=== PATIENT | female | born 1935 | race Caucasian/White ===

== ENCOUNTER 2019-10-11 11:12 | Inpatient (IN) | payer MEDICARE ==
[2019-10-11 12:01] LABS: Hematocrit 26.5 % (35-47); Hemoglobin 8.2 gm/dl (12.0-16.0); Mean Cell Volume 98.9 fl (78-100); Mean Corpuscular Hemoglobin 30.6 pg (26-32); Mean Corpuscular Hgb Concent. 30.9 g/dl (32-36); Mean Platelet Volume 9.4 fl (7.5-11.0); Platelet Count 348 K/mm3 (150-450); Red Blood Count 2.68 M/mm3 (4.1-5.4); Red Cell Distribution Width 21.9 % (11.5-14.0); White Blood Count 7.5 K/mm3 (4.0-10.5)
[2019-10-11 12:27] LABS: ANION GAP 13.4 MEQ/L (5-15); BLOOD UREA NITROGEN 40 mg/dL (7-17); CHLORIDE 96 mmol/L (98-107); Calcium 8.8 mg/dL (8.4-10.2); Carbon Dioxide 31 mmol/L (22-30); Creatinine 1 1.63 mg/dL (0.52-1.04); Glucose 111 mg/dL (74-106); NT PRO BNP > 35000 pg/mL (0-1800); SODIUM 137 mmol/L (137-145)
[2019-10-11] MEDS ORDERED: NovoLOG Insulin SQ PRN (12:30)
--- NOTE | 2019-10-11 12:56 | XRAY ---
Indication: "Fluid on lungs." Comparison: June 10, 2018. Portable chest demonstrates interval cardiac valve replacement surgery. Again cardiomegaly with new small bibasilar effusions/atelectasis favoring for cardiac decompensation. Bony thorax intact.
[2019-10-11] MEDS: ECOTRIN 81 MG PO SCH (13:06)
[2019-10-11] MEDS: Lasix 40 MG/4 ML IV SCH ×2 (13:06→21:09)
[2019-10-11] MEDS: ENOXAPARIN SODIUM SQ SCH (13:07)
[2019-10-11 13:36] LABS: ANISOCYTOSIS 2+; BAND 4 % (0.0-2.0); Eosinophil 1 % (0.00-3.0); Hypochromia 1+; Lymphocytes 8 % (24-44); Microcytosis 1+; Monocyte 8 % (0.0-12.0); Neutrophils 79 % (36.0-66.0); Total Cells Counted 100
[2019-10-11 13:37] LABS: Platelet Estimate NORMAL (NORMAL); Poikilocytosis 1+; Polychromasia RARE; Toxic Granulation 1+
[2019-10-11] MEDS: POTASSIUM CHLORIDE 20 mEq IN WATER 100ML 20 MEQ/100 ML BAG IV SCH ×2 (14:00→16:49)
[2019-10-11] MEDS: Sodium Chloride 0.9% 500 ML 500 ML IV SCH (14:00)
[2019-10-11] MEDS: Apresoline 25 MG TABLET PO SCH ×2 (14:06→21:09)
[2019-10-11] MEDS: FEOSOL 325 MG PO SCH ×2 (21:09→21:14)
[2019-10-11] MEDS: Klor Con 10 MEQ PO SCH ×2 (21:10→21:11)
[2019-10-11] MEDS: Lopressor 50 MG PO SCH (21:10)
[2019-10-11] MEDS ORDERED: TYLENOL 325 MG PO PRN (21:54)
[2019-10-12 05:15] LABS: ANION GAP 10.9 MEQ/L (5-15); Calcium 8.6 mg/dL (8.4-10.2); Creatinine 1 1.6 mg/dL (0.52-1.04); Potassium 3.2 mmol/L (3.5-5.1)
[2019-10-12] MEDS: Sodium Chloride 0.9% 500 ML 500 ML IV SCH ×2 (07:50→10:53)
--- NOTE | 2019-10-12 09:59 | PCM.NOTE ---
Date and Time: 10/12/19 0958 Subjective Assessment: patient notes improvement in her swelling, had good urine output overnight and yesterday. she is still short of breath with exertion and her abdomen feels swollen/fluid filled Objective Exam General Appearance: no apparent distress Neurologic Exam: alert, oriented x 3 Respiratory Exam: crackles/rales Cardiovascular Exam: regular rate/rhythm, normal heart sounds Gastrointestinal/Abdomen Exam: soft, No tenderness, No mass Extremity Exam: pedal edema, swelling (improving) OBJECTIVE DATA Vital Signs: Vital Signs - 24 hr Temp Pulse Resp BP Pulse Ox 10/12/19 08:00 98.5 F 94 H 16 147/77 94 L 10/12/19 04:00 97.3 F 64 20 125/59 95 10/11/19 23:53 98.7 F 58 L 19 122/66 94 L 10/11/19 19:29 98.8 F 74 18 117/53 93 L 10/11/19 16:13 97.9 F 65 20 118/59 98 10/11/19 12:15 97.6 F 70 16 123/61 95 10/11/19 12:04 97.6 F 70 16 123/61 95 10/11/19 12:00 97.6 F 70 16 123/61 95 Pain Assessment - Last Documented Pain Intensity 1 Pain Scale Used FLACC Intake and Output: Intake & Output 10/09/19 10/10/19 10/11/19 10/12/19 11:59 11:59 11:59 11:59 Intake Total 1549 Output Total 900 Balance 649 Weight 67.7 kg Lab Results: Accuchecks Date 10/12/19 Date 10/11/19 Date 10/11/19 Time 08:16 Time 21:30 Time 16:30 Accucheck Value: 119 Accucheck Value: 121 Accucheck Value: 110 Lab Results-Last 24 Hours 10/11/19 10/11/19 10/11/19 Range/Units 11:59 11:59 22:52 WBC 7.5 (4.0-10.5) K/mm3 RBC 2.68 L (4.1-5.4) M/mm3 Hgb 8.2 L (12.0-16.0) gm/dl Hct 26.5 L (35-47) % MCV 98.9 (78-100) fl MCH 30.6 (26-32) pg MCHC 30.9 L (32-36) g/dl RDW 21.9 H (11.5-14.0) % Plt Count 348 (150-450) K/mm3 MPV 9.4 (7.5-11.0) fl Segmented Neutrophils 79 H (36.0-66.0) % Band Neutrophils 4 H (0.0-2.0) % Lymphocytes (Manual) 8 L (24-44) % Monocytes (Manual) 8 (0.0-12.0) % Eosinophils (Manual) 1 (0.00-3.0) % Hypochromia 1+ Toxic Granulation 1+ Platelet Estimate NORMAL (NORMAL) RBC Morphology ABNORMAL Polychromasia RARE Poikilocytosis 1+ Anisocytosis 2+ Microcytosis 1+ Sodium 137 (137-145) mmol/L Potassium 3.0 L 3.2 L (3.5-5.1) mmol/L Chloride 96 L (98-107) mmol/L Carbon Dioxide 31 H (22-30) mmol/L Anion Gap 13.4 (5-15) MEQ/L BUN 40 H (7-17) mg/dL Creatinine 1.63 H (0.52-1.04) mg/dL Estimated GFR 31.9 ML/MIN Glucose 111 H (74-106) mg/dL Calcium 8.8 (8.4-10.2) mg/dL Magnesium 2.0 (1.6-2.3) mg/dL NT-Pro-B Natriuret Pep > 51414 H (0-1800) pg/mL 10/12/19 Range/Units 04:38 WBC (4.0-10.5) K/mm3 RBC (4.1-5.4) M/mm3 Hgb (12.0-16.0) gm/dl Hct (35-47) % MCV (78-100) fl MCH (26-32) pg MCHC (32-36) g/dl RDW (11.5-14.0) % Plt Count (150-450) K/mm3 MPV (7.5-11.0) fl Segmented Neutrophils (36.0-66.0) % Band Neutrophils (0.0-2.0) % Lymphocytes (Manual) (24-44) % Monocytes (Manual) (0.0-12.0) % Eosinophils (Manual) (0.00-3.0) % Hypochromia Toxic Granulation Platelet Estimate (NORMAL) RBC Morphology Polychromasia Poikilocytosis Anisocytosis Microcytosis Sodium 136 L (137-145) mmol/L Potassium 3.2 L (3.5-5.1) mmol/L Chloride 96 L (98-107) mmol/L Carbon Dioxide 33 H (22-30) mmol/L Anion Gap 10.9 (5-15) MEQ/L BUN 40 H (7-17) mg/dL Creatinine 1.60 H (0.52-1.04) mg/dL Estimated GFR 32.6 ML/MIN Glucose 100 (74-106) mg/dL Calcium 8.6 (8.4-10.2) mg/dL Magnesium (1.6-2.3) mg/dL NT-Pro-B Natriuret Pep (0-1800) pg/mL Radiology Exams: Radiology Procedures Category Date Time Status CHEST 1 VIEW (PORTABLE) Routine Exams 10/11/19 12:00 Completed Assessment/Plan (1) Acute exacerbation of CHF (congestive heart failure) Current Visit: No Status: Acute Assessment & Plan: diuresing well, continue IV lasix, will get echo Code(s): I50.9 - HEART FAILURE, UNSPECIFIED (2) Failure of outpatient treatment Current Visit: No Status: Acute Code(s): Z78.9 - OTHER SPECIFIED HEALTH STATUS (3) Hypokalemia Current Visit: Yes Status: Acute Code(s): E87.6 - HYPOKALEMIA
[2019-10-12] MEDS ORDERED: K-LYTE 25 MEQ PO ONE (10:00)
[2019-10-12] MEDS ORDERED: FLUZONE HIGH-DOSE 2019-20 SYR IM ONE (10:00)
[2019-10-12] MEDS ORDERED: MAGNESIUM AMINO ACID CHELATE PO SCH (10:00)
[2019-10-12] MEDS ORDERED: NON-FORMULARY ITEM (Doxazosin Mesylate [Doxazosin Mesylate] 1 MG) PO SCH (10:00)
[2019-10-12] MEDS: Lasix 40 MG/4 ML IV SCH ×2 (10:57→22:44)
[2019-10-12] MEDS: CARDURA 2 MG PO SCH (10:57)
[2019-10-12] MEDS: Klor Con 10 MEQ PO SCH ×3 (10:58→22:44)
[2019-10-12] MEDS: Apresoline 25 MG TABLET PO SCH ×3 (10:58→22:44)
[2019-10-12] MEDS: PLAVIX 75 MG Tablet PO SCH (10:58)
[2019-10-12] MEDS: MAG-OX 400 PO SCH (10:58)
[2019-10-12] MEDS: ECOTRIN 81 MG PO SCH (10:59)
[2019-10-12] MEDS: Lopressor 50 MG PO SCH ×2 (11:00→22:44)
[2019-10-12] MEDS: FEOSOL 325 MG PO SCH ×3 (11:00→22:47)
[2019-10-12] MEDS: ENOXAPARIN SODIUM SQ SCH (11:01)
[2019-10-12] MEDS ORDERED: Sodium Chloride 0.9% 10 ML FLUSH Syringe IV PRN (17:00)
[2019-10-12] MEDS: Sodium Chloride 0.9% 10 ML FLUSH Syringe IV SCH (22:45)
[2019-10-13 04:22] LABS: Hematocrit 26.5 % (35-47); Hemoglobin 8.3 gm/dl (12.0-16.0); Mean Cell Volume 99.3 fl (78-100); Mean Corpuscular Hemoglobin 31.1 pg (26-32); Mean Corpuscular Hgb Concent. 31.3 g/dl (32-36); Platelet Count 346 K/mm3 (150-450); Red Blood Count 2.67 M/mm3 (4.1-5.4); Red Cell Distribution Width 21.6 % (11.5-14.0); White Blood Count 7.8 K/mm3 (4.0-10.5)
[2019-10-13 04:37] LABS: ANION GAP 12.9 MEQ/L (5-15); Calcium 8.6 mg/dL (8.4-10.2); Creatinine 1 1.52 mg/dL (0.52-1.04); Potassium 3.8 mmol/L (3.5-5.1)
[2019-10-13 05:16] LABS: ANISOCYTOSIS RARE; BAND 1 % (0.0-2.0); Eosinophil 1 % (0.00-3.0); Lymphocytes 15 % (24-44); Monocyte 14 % (0.0-12.0); Neutrophils 69 % (36.0-66.0); Platelet Estimate NORMAL (NORMAL); Poikilocytosis 1+; Total Cells Counted 100; Toxic Granulation RARE
[2019-10-13] MEDS: Sodium Chloride 0.9% 10 ML FLUSH Syringe IV SCH (06:20)
[2019-10-13 07:42] VITALS: BP 150/70; PULSE 73; O2SAT 93
[2019-10-13] MEDS: MAG-OX 400 PO SCH (08:36)
[2019-10-13] MEDS: CARDURA 2 MG PO SCH (08:36)
[2019-10-13] MEDS: ECOTRIN 81 MG PO SCH (08:36)
[2019-10-13] MEDS: Apresoline 25 MG TABLET PO SCH (08:36)
[2019-10-13] MEDS: PLAVIX 75 MG Tablet PO SCH (08:37)
[2019-10-13] MEDS: FEOSOL 325 MG PO SCH (08:37)
[2019-10-13] MEDS: ENOXAPARIN SODIUM SQ SCH (08:37)
[2019-10-13] MEDS: Lasix 40 MG/4 ML IV SCH (08:37)
[2019-10-13] MEDS: Klor Con 10 MEQ PO SCH (08:37)
[2019-10-13] MEDS: Lopressor 50 MG PO SCH (08:41)
--- NOTE | 2019-10-13 09:06 | PCM.DS ---
Discharge Summary Date of Admission: 10/11/19 11:32 Admitting Physician: ALYSSA BARGER Primary Care Provider: ALYSSA BARGER Allergies Allergies No Known Drug Allergies Allergy (Verified 10/08/19 14:18) Hospital Summary - Hospital Course Hospital Course: patient was admitted with acute exacerbation of chf, found to have markedly elevated bnp with pulmonary edema and lower extremity swelling. improved with diuresis and is feeling much better now. - Vitals & Intake/Output Vital Signs: Vital Signs Temperature 97.7 F 10/13/19 07:41 Pulse Rate 73 10/13/19 07:41 Respiratory Rate 18 10/13/19 07:41 Blood Pressure 150/70 10/13/19 07:41 O2 Sat by Pulse Oximetry 93 L 10/13/19 07:41 Intake & Output: Intake & Output 10/10/19 10/11/19 10/12/19 10/13/19 11:59 11:59 11:59 11:59 Intake Total 1789 880 Output Total 900 700 Balance 889 180 Weight 67.7 kg 68 kg - Lab Result Diagrams: 10/13/19 04:28 10/13/19 04:28 Lab Results-Last 24 Hrs: Accuchecks Date 10/13/19 Date 10/12/19 Date 10/12/19 Time 07:44 Time 16:53 Time 12:32 Accucheck Value: 122 Accucheck Value: 126 Accucheck Value: 175 Accucheck Value: 179 Lab Results-Last 24 Hours 10/13/19 10/13/19 10/13/19 Range/Units 04:28 04:28 04:28 WBC 7.8 (4.0-10.5) K/mm3 RBC 2.67 L (4.1-5.4) M/mm3 Hgb 8.3 L (12.0-16.0) gm/dl Hct 26.5 L (35-47) % MCV 99.3 (78-100) fl MCH 31.1 (26-32) pg MCHC 31.3 L (32-36) g/dl RDW 21.6 H (11.5-14.0) % Plt Count 346 (150-450) K/mm3 MPV 9.0 (7.5-11.0) fl Segmented Neutrophils 69 H (36.0-66.0) % Band Neutrophils 1 (0.0-2.0) % Lymphocytes (Manual) 15 L (24-44) % Monocytes (Manual) 14 H (0.0-12.0) % Eosinophils (Manual) 1 (0.00-3.0) % Toxic Granulation RARE Platelet Estimate NORMAL (NORMAL) RBC Morphology ABNORMAL Poikilocytosis 1+ Anisocytosis RARE Sodium 137 (137-145) mmol/L Potassium 3.8 (3.5-5.1) mmol/L Chloride 95 L (98-107) mmol/L Carbon Dioxide 33 H (22-30) mmol/L Anion Gap 12.9 (5-15) MEQ/L BUN 38 H (7-17) mg/dL Creatinine 1.52 H (0.52-1.04) mg/dL Estimated GFR 34.6 ML/MIN Glucose 122 H (74-106) mg/dL Calcium 8.6 (8.4-10.2) mg/dL NT-Pro-B Natriuret Pep 36368 H (0-1800) pg/mL Micro Results-Entire Visit: Accuchecks Date 10/13/19 Date 10/12/19 Date 10/12/19 Time 07:44 Time 16:53 Time 12:32 Accucheck Value: 122 Accucheck Value: 126 Accucheck Value: 175 Accucheck Value: 179 - Radiology Exams Ordered Rad Exams-Entire Visit: Radiology Procedures Category Date Time Status CHEST 1 VIEW (PORTABLE) Routine Exams 10/11/19 12:00 Completed ECHO W/2D AND DOPPLER [US] Routine Exams 10/12/19 12:46 Taken - Procedures and Test Procedures and Tests throughout Hospitalization: Therapy Orders & Screens 10/11/19 13:04 PT Eval & Treat ( Order) ROUTINE Reason for Eval:: wound care to Right lazo Diagnosis: Acute Exacerbation of Systolic CHF, Failure outpatient Treatment Discharge Exam General Appearance: no apparent distress, alert Respiratory Exam: normal breath sounds Cardiovascular Exam: regular rate/rhythm, normal heart sounds Gastrointestinal/Abdomen Exam: soft, No tenderness, No mass Extremity Exam: normal inspection, normal range of motion Skin Exam: normal color, warm, dry Final Diagnosis/Problem List - Final Discharge Diagnosis/Problem (1) Acute exacerbation of CHF (congestive heart failure) Current Visit: No Status: Acute Code(s): I50.9 - HEART FAILURE, UNSPECIFIED (2) Failure of outpatient treatment Current Visit: No Status: Acute Code(s): Z78.9 - OTHER SPECIFIED HEALTH STATUS (3) Hypokalemia Current Visit: Yes Status: Acute Code(s): E87.6 - HYPOKALEMIA - Discharge Disposition: Home, Self-Care Condition: Stable Prescriptions: Continue Aspirin EC 81 mg [Ecotrin 81 mg] 81 mg PO DAILY Metoprolol Tartrate 50 mg [Lopressor 50 MG] 50 mg PO BID Potassium Chloride [Klor-Con] 20 meq PO TID Clopidogrel Bisulfate 75 mg [PLAVIX 75 MG Tablet] 75 mg PO DAILY Magnesium Amino Acid Chelate [Magnesium] 400 mg PO DAILY Sitagliptin Phosphate [Januvia] 100 mg PO DAILY Hydralazine HCl 50 mg PO TID Doxazosin Mesylate 1 mg PO DAILY Furosemide 40 mg [Lasix 40 MG] 40 mg PO BID metOLazone [Metolazone] 2.5 mg PO WEEKLY Instructions: Heart Failure, Adult (DC) Follow up with: ALYSSA BARGER MD [Primary Care Provider] - 1 Week J LUIS BOWMAN MD [CONSULTING PHYSICIAN] - 1 Week (please schedule for new consult in [place] office for chf/cad and fax copy of labs and echo)
--- NOTE | 2019-10-14 15:00 | ECHO ---
DATE OF PROCEDURE: 10/12/2019 CLINICAL INFORMATION: Congestive heart failure. The M-mode 2D, and Doppler echocardiogram including color flow Doppler shows the left ventricle is normal in size at 4.5 cm. There is no thrombus present. The septal wall thickness is normal at 0.8 cm. The left ventricular posterior wall thickness is normal at 0.9 cm. There is a moderate decrease in left ventricular systolic function with an ejection fraction calculated at 37%. The right ventricle is dilated. The left atrium is mildly dilated at 4.2 cm. The interatrial septum is intact. The right atrium is dilated. The aortic valve opens well and is trileaflet. There is no aortic regurgitation present. There is mitral valve calcification associated with mild to moderate mitral regurgitation. There is mild to moderate tricuspid regurgitation. There is mild pulmonic regurgitation. The aortic root is normal at 3.4 cm. There is no pericardial effusion present. IMPRESSION: 1) MODERATE DECREASE IN LEFT VENTRICULAR SYSTOLIC FUNCTION. 2) MILD LEFT ATRIAL DILATATION. 3) MILD TO MODERATE MITRAL REGURGITATION. 4) MILD TO MODERATE TRICUSPID REGURGITATION. 5) MILD PULMONIC REGURGITATION.
== END 2019-10-13 10:10 | disposition home health service (06) | DRG 293 ==
LOC: OBSVTOIN 11:32 → MED SURG 11:32
PROVIDERS: ADMIT Family Medicine; ATTEND Family Medicine
DX: I11.0 Hypertensive heart disease with heart failure (principal); I50.9 Heart failure, unspecified; E87.6 Hypokalemia; E11.9 Type 2 diabetes mellitus without complications; I25.10 Atherosclerotic heart disease of native coronary artery without angina pectoris; Z79.01 Long term (current) use of anticoagulants; Z79.899 Other long term (current) drug therapy
CPT/HCPCS: 36415; 71045; 80048; 82962; 83735; 83880; 84132; 85025; 90662; 93005; 93306; J1650; J1940; J3480; A9270-GY

== ENCOUNTER 2020-02-09 14:46 | Observation (INO) | payer MEDICARE ==
--- NOTE | 2020-02-09 15:28 | ERPHSYRPT ---
- History of Present Illness Time Seen by Provider: 02/09/20 15:16 Source: patient Exam Limitations: other (Pt refuses rectal exam) Patient Subjective Stated Complaint: Pt states "I had some diarrhea and dark blood in the stool this morning since 6 am." Triage Nursing Assessment: Pt has had 2 diarrhea episodes, 1 this morning and one about an hour ago both with dark blood in it. PT alert and oriented X 3, skin pwd Pt ambulates with a cane due to wound on right foot. Physician History: 84 yo wf w rectal bleed x2 over last 9 hours. Pt is taking plavix. She denies h/ o past GI bleed and has never had a colonoscopy. Pt denies N/V but stools are loose. Abdominal pain/chest pain/dyspnea are all denied. Timing/Duration: other (9 hours) Modifying Factors: Improves With: nothing Associated Symptoms: No nausea, No vomiting, No abdominal pain, No shortness of breath, No heartburn, No diaphoresis, No cough, No chills, No chest pain, No fever, No headaches, No loss of appetite, No malaise, No rash, No syncope, No seizure, No weakness Allergies/Adverse Reactions: No Known Drug Allergies Allergy (Verified 10/08/19 14:18) Home Medications: Aspirin EC 81 mg [Ecotrin 81 mg] 81 mg PO DAILY 02/12/19 [History] Clopidogrel Bisulfate 75 mg [PLAVIX 75 MG Tablet] 75 mg PO DAILY 02/12/19 [History] Magnesium Amino Acid Chelate [Magnesium] 400 mg PO DAILY 02/12/19 [History] Metoprolol Tartrate 50 mg [Lopressor 50 MG] 50 mg PO BID 02/12/19 [History ] Potassium Chloride [Klor-Con] 20 meq PO TID 02/12/19 [History] Sitagliptin Phosphate [Januvia] 100 mg PO DAILY 02/12/19 [History] Doxazosin Mesylate 1 mg PO DAILY 10/08/19 [History] Furosemide 40 mg [Lasix 40 MG] 40 mg PO BID 10/08/19 [History] Hydralazine HCl 50 mg PO TID 10/08/19 [History] metOLazone [Metolazone] 2.5 mg PO WEEKLY 10/11/19 [History] Hx Tetanus, Diphtheria Vaccination/Date Given: Yes Hx Influenza Vaccination/Date Given: Yes Hx Pneumococcal Vaccination/Date Given: No Immunizations Up to Date: Yes Travel Risk - International Travel Have you traveled outside of the country in past 3 weeks: No Have you or anyone close to you been diagnosed with or: No Do your reside in a community with a known COVID-19 case?: Yes If Yes where:: [place] - Coronavirus Screening Has patient experienced Coronavirus symptoms: No - Review of Systems Constitutional: No Fever, No Chills Eyes: No Symptoms Ears, Nose, & Throat: No Symptoms Respiratory: No Cough, No Dyspnea Cardiac: No Chest Pain, No Edema, No Syncope Abdominal/Gastrointestinal: Diarrhea, Hematochezia, No Abdominal Pain, No Nausea , No Vomiting, No Constipation, No Hematemesis, No Melena, No Dysphagia, No Appetite Changes Genitourinary Symptoms: No Dysuria Musculoskeletal: Other (Chronic RLE wound which she is seeing wound care for) Skin: No Symptoms Neurological: No Symptoms Endocrine: No Symptoms Hematologic/Lymphatic: No Symptoms Immunological/Allergic: No Symptoms - Past Medical History Pertinent Past Medical History: Yes Neurological History: No Pertinent History ENT History: No Pertinent History Cardiac History: Coronary Artery Disease, Hypertension Respiratory History: CHF Endocrine Medical History: Diabetes Type II Musculoskeletal History: Osteoarthritis, Other GI Medical History: Other History: No Pertinent History Psycho-Social History: No Pertinent History Female Reproductive Disorders: Abnormal Uterine Bleeding Other Medical History: CARDIAC STENT 01/02; Enlarged liver, open heart surgery - Past Surgical History Past Surgical History: Yes Neuro Surgical History: No Pertinent History Cardiac: Angioplasty, CABG, Cardiac Catheterization, Cardiac Stent Respiratory: No Pertinent History Gastrointestinal: No Pertinent History Genitourinary: No Pertinent History Musculoskeletal: Other Female Surgical History: Hysterectomy Other Surgical History: cardiac stent x three December. CABG x 4 vessels in -2018, wound care for bilateral legs within the last year - Social History Smoking Status: Never smoker Exposure to second hand smoke: No Drug Use: none Patient Lives Alone: Yes - Female History Hx Now: No - Nursing Vital Signs Nursing Vital Signs: Initial Vital Signs Temperature 97.8 F 02/09/20 14:53 Pulse Rate 72 02/09/20 14:53 Respiratory Rate 18 05/20/20 14:53 Blood Pressure 142/62 05/20/20 14:53 O2 Sat by Pulse Oximetry 92 L 02/09/20 14:53 Pain Scale Pain Intensity 0 - Physical Exam General Appearance: no apparent distress Eye Exam: PERRL/EOMI, eyes nml inspection Ears, Nose, Throat Exam: normal ENT inspection, TMs normal, pharynx normal, moist mucous membranes Neck Exam: normal inspection, non-tender, supple, full range of motion Respiratory Exam: crackles/rales (Rales B bases), No respiratory distress Cardiovascular Exam: regular rate/rhythm Gastrointestinal/Abdomen Exam: soft, normal bowel sounds, No tenderness, No distention, No mass, No guarding, No ecchymosis Rectal Exam: other (Pt refused rectal exam per physician/Nurse performed and bloody) Back Exam: normal inspection Extremity Exam: other (RLE wound not examined due to wound care center bandaging today) Neurologic Exam: alert, oriented x 3, cooperative, normal mood/affect, nml cerebellar function, nml station & gait, sensation nml, No motor deficits Skin Exam: normal color, warm, dry, No rash Lymphatic Exam: No adenopathy SpO2 Interpretation: borderline oxygenation SpO2: 92 O2 Delivery: Room Air - Radiology Exams Chest X-ray Interpretation: Reviewed by me - CT Exams Abdomen/Pelvis CT Interpretation: Tele-radiologist Report, Other (Cardiomegaly/ascites/ diverticulosis wo diverticulitis/gallstones wo cholecystitis/hepatomegaly/ splenomegaly/R pleural effusion/minimal ascites) Ordered Tests: Active Orders 24 hr Category Date Time Status Code Status Order ROUTINE Care 02/09/20 17:05 Active IV Care Q6H Care 02/09/20 17:[address] in Observation ROUTINE Care 02/09/20 17:05 Active ABDOMEN AND PELVIS W/0 CONTRAS [CT] Stat Exams 02/09/20 16:29 Completed CHEST 1 VIEW (PORTABLE) Stat Exams 02/09/20 15:43 Completed CBC W DIFF Stat Lab 02/09/20 15:47 Completed CMP Stat Lab 02/09/20 15:47 Completed Manual Differential NC Stat Lab 02/09/20 15:47 Completed Occult Blood-Screening (Stool) [Occult Blood - Cancer Lab 02/09/20 15:55 Completed Screen] Stat PROTIME WITH INR Stat Lab 02/09/20 15:47 Completed PTT Stat Lab 02/09/20 15:47 Completed TROPONIN Q3H Lab 02/09/20 15:55 Completed Transfer Order Routine Transfer 02/09/20 Ordered Lab/Rad Data: Laboratory Result Diagrams 02/09/20 15:47 02/09/20 15:47 Laboratory Results 02/09/20 02/09/20 02/09/20 Range/Units 15:55 15:55 15:47 WBC (4.0-10.5) K/mm3 RBC (4.1-5.4) M/mm3 Hgb (12.0-16.0) gm/dl Hct (35-47) % MCV (78-100) fl MCH (26-32) pg MCHC (32-36) g/dl RDW (11.5-14.0) % Plt Count (150-450) K/mm3 MPV (7.5-11.0) fl PT 17.4 H (9.95-12.35) SECONDS INR 1.53 (0.8-3.0) APTT 35.4 (25.3-37.0) SECONDS Sodium (137-145) mmol/L Potassium (3.5-5.1) mmol/L Chloride (98-107) mmol/L Carbon Dioxide (22-30) mmol/L Anion Gap (5-15) MEQ/L BUN (7-17) mg/dL Creatinine (0.52-1.04) mg/dL Estimated GFR ML/MIN Glucose (74-106) mg/dL Calcium (8.4-10.2) mg/dL Total Bilirubin (0.2-1.3) mg/dL AST (14-36) U/L ALT (0-35) U/L Alkaline Phosphatase (38-126) U/L Troponin I < 0.012 (0.000-0.034) ng/mL Serum Total Protein (6.3-8.2) g/dL Albumin (3.5-5.0) g/dL Stool Occult Bld Scrn POSITIVE A (NEGATIVE) 02/09/20 02/09/20 Range/Units 15:47 15:47 WBC 5.4 (4.0-10.5) K/mm3 RBC 2.26 L (4.1-5.4) M/mm3 Hgb 7.5 L (12.0-16.0) gm/dl Hct 23.5 L (35-47) % MCV 104.0 H (78-100) fl MCH 33.2 H (26-32) pg MCHC 31.9 L (32-36) g/dl RDW 18.9 H (11.5-14.0) % Plt Count 331 (150-450) K/mm3 MPV 9.4 (7.5-11.0) fl PT (9.95-12.35) SECONDS INR (0.8-3.0) APTT (25.3-37.0) SECONDS Sodium 139 (137-145) mmol/L Potassium 3.9 (3.5-5.1) mmol/L Chloride 96 L (98-107) mmol/L Carbon Dioxide 34 H (22-30) mmol/L Anion Gap 12.5 (5-15) MEQ/L BUN 40 H (7-17) mg/dL Creatinine 1.44 H (0.52-1.04) mg/dL Estimated GFR 36.9 ML/MIN Glucose 116 H (74-106) mg/dL Calcium 8.7 (8.4-10.2) mg/dL Total Bilirubin 0.40 (0.2-1.3) mg/dL AST 21 (14-36) U/L ALT 12 (0-35) U/L Alkaline Phosphatase 85 (38-126) U/L Troponin I (0.000-0.034) ng/mL Serum Total Protein 6.2 L (6.3-8.2) g/dL Albumin 3.6 (3.5-5.0) g/dL Stool Occult Bld Scrn (NEGATIVE) - Progress Progress: unchanged Progress Note: 02/09/20 16:[address] [place] for leydi Cummins to admit but wants CT ab-pelvis first. Wants to transfues 2 units PRBC's 02/09/20 17:12 02/09/20 17:50 CT of ab-pelvis wo acute pathology Discussed with : Jose - Departure Departure Disposition: Observation Clinical Impression: GI bleed Condition: Stable Critical Care Time: No Referrals: ALYSSA BARGER MD [Primary Care Provider] -
[2020-02-09 16:05] LABS: Hematocrit 23.5 % (35-47); Hemoglobin 7.5 gm/dl (12.0-16.0); Mean Corpuscular Hemoglobin 33.2 pg (26-32); Mean Corpuscular Hgb Concent. 31.9 g/dl (32-36); Mean Platelet Volume 9.4 fl (7.5-11.0); Platelet Count 331 K/mm3 (150-450); Red Blood Count 2.26 M/mm3 (4.1-5.4); Red Cell Distribution Width 18.9 % (11.5-14.0); White Blood Count 5.4 K/mm3 (4.0-10.5)
[2020-02-09 16:07] LABS: INR 1.53 (0.8-3.0); PROTIME 17.4 SECONDS (9.95-12.35)
[2020-02-09 16:10] LABS: PTT 35.4 SECONDS (25.3-37.0)
[2020-02-09 16:15] LABS: ALBUMIN 3.6 g/dL (3.5-5.0); ANION GAP 12.5 MEQ/L (5-15); BILIRUBIN,TOTAL 0.4 mg/dL (0.2-1.3); Calcium 8.7 mg/dL (8.4-10.2); Creatinine 1 1.44 mg/dL (0.52-1.04); Potassium 3.9 mmol/L (3.5-5.1); Total Protein 6.2 g/dL (6.3-8.2)
--- NOTE | 2020-02-09 16:22 | XRAY ---
Exam: AP upright portable chest film from 02/09/2020. Comparison: AP portable chest film from 10/11/2019 and 2 view chest film series from 06/10/2018. Indication: 84-year-old female with low oxygen saturation, rectal bleeding, prior CABG surgery last year. Findings: Lung volumes are mildly decreased. The patient is mildly rotated toward the right. There is mild elevation of the left hemidiaphragm which I believe is unchanged. The heart size is at least mildly enlarged. There is again evidence of prior sternotomy and cardiac valve replacement. There appears to be a left atrial appendage clip projected over the mediastinum as well. Moderate tortuosity of the descending thoracic aorta is seen. There appears to be a small amount of right basilar pleural fluid or pleural scarring which is perhaps slightly improved compared to 10/11/2019. In addition, subtle increased markings are seen at the left lung base adjacent to the left hemidiaphragm surface cyst in width minimal scarring/atelectasis. I don't believe this represents a significant interval change. The remainder of the lung aquino appears grossly clear. There is superior elevation of the right humeral head with respect to the glenoid of the right scapula suggesting chronic rotator cuff disease. No acute osseous process is seen. Impression: 1. There is at least mild cardiomegaly. The possibility of a pericardial effusion cannot be excluded or confirmed based on this portable chest radiograph. I see no findings of overt heart failure or pulmonary edema. 2. Status post sternotomy with cardiac valve replacement and left atrial appendage clipping, no change. 3. Mild elevation of the left hemidiaphragm with minimal increased markings near the left hemidiaphragm surface, likely due to subsegmental atelectasis or minimal scarring. I don't believe this represents a significant change. 4. Small amount of right basilar pleural effusion or pleural thickening appears slightly improved as compared to 10/11/2019. 5. The lungs are mildly hypoinflated. Otherwise, the remainder of the lungs appears clear.
--- NOTE | 2020-02-09 17:45 | XRAY ---
Exam: CT of the abdomen and pelvis without IV contrast from 02/09/2020. CTDI: 7.72 mGy Comparison: CT of the abdomen and pelvis without and with IV contrast from 09/20/2013. Indication: GI bleed. History of dark red blood per rectum, prior surgical history of hysterectomy and open heart surgery. Technique: Non-IV contrast axial images were obtained through the abdomen and pelvis. Reconstructed coronal and sagittal images were created and reviewed. Findings: The heart size appears mildly enlarged. There is a probable mitral valve replacement and midline sternotomy. Some coronary artery vascular calcification is seen on the right. There is at least mild elevation of the left hemidiaphragm. There is a mild to moderate posterior right basilar pleural effusion which is new from 09/20/2013. There are findings suggestive of a minimal retrocardiac hiatal hernia. Some compression atelectatic changes are seen posteriorly at both lung bases. The liver again appears to be enlarged extending into the upper right hemipelvis. On the coronal images, the right lobe of the liver measures about 24 cm in craniocaudal dimension on image #61. There are multiple hepatic cysts, the largest measuring 3.5 cm in diameter within the anterior aspect of the medial segment of the left lobe of the liver. These hepatic cysts appear similar to 09/03/2030. No intrahepatic biliary duct distention is seen. Numerous calcium rimmed gallstones are seen within the gallbladder lumen. Incidentally, there appears to be a minimal amount of perihepatic ascites within the anterior aspect of the right upper quadrant on axial image #18. A small amount of free intraperitoneal fluid is also seen within the right paracolic gutter on axial image #35. No significant free fluid is seen within the pelvis. The spleen again appears to be markedly enlarged and is remarkable for some scattered calcified granulomas. The dome of the spleen has been barely cut off from this exam, but I would estimate the greatest craniocaudal dimension of the spleen to measure about 19 cm. This appears similar to the prior study as well. Fairly extensive vascular calcification is seen within a mildly prominent splenic artery. The pancreas appears grossly unremarkable. Some prominent curvilinear vascular calcification is seen within the deep mesenteric arteries to the right of midline. The right adrenal gland appears unremarkable. There is mild asymmetric soft tissue prominence of the left adrenal gland which is unchanged and could be due to a superimposed adenoma or hyperplasia. Again, this is unchanged. The right kidney measures about 10.7 cm in length on sagittal image #81, and the left kidney measures about 10.4 cm in length on sagittal image #136. Small bilateral renal cortical cysts are seen, the largest measuring about 1.9 cm in diameter at the lateral margin of the lower pole of the left kidney. This represents no significant change. No renal calculi or definite solid renal mass is seen. No hydronephrosis is evident. Moderate vascular calcification and tortuosity of the abdominal aorta and iliac arteries are seen. No abdominal aortic aneurysm is seen. No abnormal retroperitoneal lymphadenopathy is seen. There is no free intraperitoneal air. Anterior abdominal wall appears intact. No significant bowel distention is seen to suggest bowel obstruction. Scattered diverticula are seen within the distal descending colon and sigmoid colon consistent with diverticulosis. No evidence of acute diverticulitis is seen. The appendix is not well seen, but no secondary findings of acute appendicitis are noted. The urinary bladder is mildly distended. A tiny bubble of air density seen within the anterior aspect of the urinary bladder, perhaps due to recent catheterization. The uterus is surgically absent. A few calcified phleboliths are seen within lower pelvis. No enlarged pelvic lymph nodes are seen. Moderate vascular calcification is seen within the iliac arteries and common femoral arteries. No acute fracture or aggressive bone lesion is seen. There appears to be a bone island within the right ischium on axial image #61 representing no change. Diffuse patchy bone demineralization is evident. There is moderate degenerative disc disease at L1-L2, L2-L3, and L5-S1. The degenerative disc disease at L1-L2 and L2-L3 has progressed as compared to 09/20/2013. Lower lumbar facet joint arthropathy is seen. Impression: 1. Mild cardiomegaly and mild to moderate posterior layering right pleural effusion. I also note minimal ascites seen anterior to the liver in the right upper quadrant and within the right paracolic gutter. Consider CHF. 2. Status post mitral valve replacement with sternotomy. Right coronary artery vascular calcification is also seen. 3. Chronic mild elevation left hemidiaphragm with minimal bibasilar atelectatic changes. 4. There is at least moderate hepatomegaly and marked splenomegaly representing no significant interval change from 2013. I again note some scattered hepatic cysts. 5. Chronic mild soft tissue fullness of the left adrenal gland, extensive atherosclerotic vascular calcification, minimal hiatal hernia, small bilateral renal cortical cysts, and cholelithiasis without evidence of biliary duct distention are seen. The findings appear stable. 6. Status post hysterectomy, no change. 7. Patchy bone demineralization and degenerative changes within the lumbar spine, as discussed above.
[2020-02-09 17:50] LABS: BAND 6 % (0.0-2.0); Basophil 2 % (0.0-1.0); Lymphocytes 4 % (24-44); Metamyelocyte 3 %; Monocyte 6 % (0.0-12.0); Neutrophils 79 % (36.0-66.0); Platelet Estimate NORMAL (NORMAL); Total Cells Counted 100
[2020-02-09 17:51] LABS: Basophilic Stippling 1+; Polychromasia 1+
[2020-02-09 18:47] LABS: Hematocrit 23.9 % (35-47); Hemoglobin 7.7 gm/dl (12.0-16.0); Mean Cell Volume 103.5 fl (78-100); Mean Corpuscular Hemoglobin 33.3 pg (26-32); Mean Corpuscular Hgb Concent. 32.2 g/dl (32-36); Mean Platelet Volume 9.6 fl (7.5-11.0); Platelet Count 345 K/mm3 (150-450); Red Blood Count 2.31 M/mm3 (4.1-5.4); Red Cell Distribution Width 18.9 % (11.5-14.0)
[2020-02-09] MEDS ORDERED: CITROMA 296 ML PO ONE (19:00)
[2020-02-09] MEDS ORDERED: Zofran 4 MG/2 ML VIAL IV PRN (19:02)
[2020-02-09 19:20] LABS: ABO TYPING O; Antibody Screen NEGATIVE (NEGATIVE); RH TYPING NEGATIVE
[2020-02-09 19:22] LABS: CROSS MATCH (PRBC) COMPATIBLE (COMPATIBLE)
[2020-02-09] MEDS ORDERED: Sodium Chloride 0.9% 1000 ML 1,000 ML ONE (20:13)
[2020-02-09] MEDS: Sodium Chloride 0.9% 1000 ML 1,000 ML IV SCH (20:25)
[2020-02-09] MEDS ORDERED: Sodium Chloride 0.9% 1000 ML 1,000 ML IV SCH (20:30)
[2020-02-09] MEDS: PROTONIX 40 MG IV IV SCH (20:30)
[2020-02-09] MEDS: Apresoline 25 MG TABLET PO SCH (21:34)
[2020-02-09] MEDS: Neurontin 100 MG PO SCH (21:34)
[2020-02-09] MEDS ORDERED: Lasix 40 MG PO SCH (22:00)
[2020-02-09] MEDS ORDERED: TYLENOL 325 MG PO PRN (23:04)
[2020-02-09] MEDS: NORCO 5/325 MG PO PRN (23:14)
[2020-02-10] MEDS ORDERED: CITROMA 296 ML PO ONE
[2020-02-10] MEDS ORDERED: Golytely Solution 4000 ML PO ONE
[2020-02-10] MEDS ORDERED: Lasix 20 MG/2 ML IV PRN (00:54)
[2020-02-10 05:17] LABS: Hematocrit 30.3 % (35-47); Mean Cell Volume 98.1 fl (78-100); Mean Corpuscular Hgb Concent. 32.7 g/dl (32-36); Mean Platelet Volume 9.5 fl (7.5-11.0); Platelet Count 319 K/mm3 (150-450); Red Blood Count 3.09 M/mm3 (4.1-5.4); Red Cell Distribution Width 19.3 % (11.5-14.0); White Blood Count 5.9 K/mm3 (4.0-10.5)
[2020-02-10 05:27] LABS: Hemoglobin 9.9 gm/dl (12.0-16.0)
[2020-02-10] MEDS ORDERED: Golytely Solution 4000 ML PO SCH (06:00)
[2020-02-10] MEDS ORDERED: POTASSIUM CHLORIDE 20 mEq IN WATER 100ML 200 ML IV ONE (06:14)
[2020-02-10] MEDS ORDERED: Levofloxacin 500MG/100ML D5W 500 MG/100 ML BAG IV ONE (06:15)
[2020-02-10] MEDS: Lactated Ringers 1,000 ML IV SCH ×2 (07:51→17:39)
[2020-02-10] MEDS: NORCO 5/325 MG PO PRN (08:23)
[2020-02-10] MEDS: Januvia 50 MG PO SCH (08:56)
[2020-02-10] MEDS: Apresoline 25 MG TABLET PO SCH ×3 (08:57→21:11)
[2020-02-10] MEDS: CARDURA 2 MG PO SCH (08:57)
[2020-02-10] MEDS: Lopressor 50 MG PO SCH (08:58)
[2020-02-10] MEDS: Lasix 40 MG PO SCH ×2 (08:59→17:32)
[2020-02-10] MEDS: MAG-OX 400 PO SCH (08:59)
[2020-02-10] MEDS: Neurontin 100 MG PO SCH ×2 (08:59→21:11)
[2020-02-10] MEDS ORDERED: MAGNESIUM AMINO ACID CHELATE PO SCH (10:00)
[2020-02-10] MEDS ORDERED: NON-FORMULARY ITEM (Doxazosin Mesylate [Doxazosin Mesylate] 1 MG) PO SCH (10:00)
[2020-02-10] MEDS ORDERED: NON-FORMULARY ITEM (Sitagliptin Phosphate [Januvia] 100 MG) PO SCH (10:00)
[2020-02-10 14:39] LABS: Hematocrit 36.9 % (35-47)
[2020-02-10 14:41] LABS: Hemoglobin 11.9 gm/dl (12.0-16.0)
--- NOTE | 2020-02-10 15:24 | PCM.CONS ---
History of Present Illness - Reason for Consult Chief Complaint: lower GI bleed Reason for Consult: gib Requesting Provider: RONALD BROWNLEE DO Consulting Provider: CHELSI MC MD History of Present Illness: is a 84 year old female. hx per chart review and d/w patient and RN. 6am 02/08 darkish red blood per rectum no clots. no n/v. no hematemesis. mild crampy abdominal pain. additional episode in afternoon so came to ED. HDS, low hgb got 3u blood hgb up 4 pts. got mag citrate yesterday, bowel prep today. overnight some blood in stool but no clots. clearing of bowels today with translucent yellow scant red tinge midday. 84 yo wf w rectal bleed x2 over last 9 hours. Pt is taking plavix, asa 81. She denies h/o past GI bleed and has never had a colonoscopy. Pt denies N/V but stools are loose. Abdominal pain/chest pain/dyspnea are all denied. Timing/Duration: other (9 hours) Modifying Factors: Improves With: nothing Associated Symptoms: No nausea, No vomiting, No abdominal pain, No shortness of breath, No heartburn, No diaphoresis, No cough, No chills, No chest pain, No fever, No headaches, No loss of appetite, No malaise, No rash, No syncope, No seizure, No weakness Allergies/Adverse Reactions: No Known Drug Allergies Allergy (Verified 10/08/19 14:18) Home Medications: Aspirin EC 81 mg [Ecotrin 81 mg] 81 mg PO DAILY 02/12/19 [History] Clopidogrel Bisulfate 75 mg [PLAVIX 75 MG Tablet] 75 mg PO DAILY 02/12/19 [History] Magnesium Amino Acid Chelate [Magnesium] 400 mg PO DAILY 02/12/19 [History] Metoprolol Tartrate 50 mg [Lopressor 50 MG] 50 mg PO BID 02/12/19 [History ] Potassium Chloride [Klor-Con] 20 meq PO TID 02/12/19 [History] Sitagliptin Phosphate [Januvia] 100 mg PO DAILY 02/12/19 [History] Doxazosin Mesylate 1 mg PO DAILY 10/08/19 [History] Furosemide 40 mg [Lasix 40 MG] 40 mg PO BID 10/08/19 [History] Hydralazine HCl 50 mg PO TID 10/08/19 [History] metOLazone [Metolazone] 2.5 mg PO WEEKLY 10/11/19 [History] Hx Tetanus, Diphtheria Vaccination/Date Given: Yes Hx Influenza Vaccination/Date Given: Yes Hx Pneumococcal Vaccination/Date Given: No Immunizations Up to Date: Yes Travel Risk - International Travel Have you traveled outside of the country in past 3 weeks: No Have you or anyone close to you been diagnosed with or: No Do your reside in a community with a known COVID-19 case?: Yes If Yes where:: [place] - Coronavirus Screening Has patient experienced Coronavirus symptoms: No - Review of Systems Constitutional: No Fever, No Chills Eyes: No Symptoms Ears, Nose, & Throat: No Symptoms Respiratory: No Cough, No Dyspnea Cardiac: No Chest Pain, No Edema, No Syncope Abdominal/Gastrointestinal: Diarrhea, Hematochezia, No Abdominal Pain, No Nausea , No Vomiting, No Constipation, No Hematemesis, No Melena, No Dysphagia, No Appetite Changes Genitourinary Symptoms: No Dysuria Musculoskeletal: Other (Chronic RLE wound which she is seeing wound care for) Skin: No Symptoms Neurological: No Symptoms Endocrine: No Symptoms Hematologic/Lymphatic: No Symptoms Immunological/Allergic: No Symptoms - Past Medical History Pertinent Past Medical History: Yes Neurological History: No Pertinent History ENT History: No Pertinent History Cardiac History: Coronary Artery Disease, Hypertension Respiratory History: CHF Endocrine Medical History: Diabetes Type II Musculoskeletal History: Osteoarthritis, Other GI Medical History: Other History: No Pertinent History Psycho-Social History: No Pertinent History Female Reproductive Disorders: Abnormal Uterine Bleeding Other Medical History: CARDIAC STENT 01/02; Enlarged liver, open heart surgery - Past Surgical History Past Surgical History: Yes Neuro Surgical History: No Pertinent History Cardiac: Angioplasty, CABG, Cardiac Catheterization, Cardiac Stent Respiratory: No Pertinent History Gastrointestinal: No Pertinent History Genitourinary: No Pertinent History Musculoskeletal: Other Female Surgical History: Hysterectomy Other Surgical History: cardiac stent x three December. CABG x 4 vessels in -2018, wound care for bilateral legs within the last year - Social History Smoking Status: Never smoker Exposure to second hand smoke: No Drug Use: none Patient Lives Alone: Yes Medications & Allergies Home Medications: Home Medication List Aspirin EC 81 mg [Ecotrin 81 mg] 81 mg PO DAILY 02/12/19 [History Confirmed 02/09/20] Clopidogrel Bisulfate 75 mg [PLAVIX 75 MG Tablet] 75 mg PO DAILY 02/12/19 [History Confirmed 02/09/20] Magnesium Amino Acid Chelate [Magnesium] 400 mg PO DAILY 02/12/19 [History Confirmed 02/09/20] Metoprolol Tartrate 50 mg [Lopressor 50 MG] 50 mg PO DAILY 02/12/19 [ History Confirmed 02/09/20] Sitagliptin Phosphate [Januvia] 100 mg PO DAILY 02/12/19 [History Confirmed ] Doxazosin Mesylate 1 mg PO DAILY 10/08/19 [History Confirmed 02/09/20] Furosemide 40 mg [Lasix 40 MG] 40 mg PO BID 10/08/19 [History Confirmed ] Hydralazine HCl 50 mg PO TID 10/08/19 [History Confirmed 02/09/20] Gabapentin [Neurontin] 100 mg PO BID 02/09/20 [History Confirmed 02/09/20] Allergies/Adverse Reactions: Allergies Allergy/AdvReac Type Severity Reaction Status Date / Time No Known Drug Allergies Allergy Verified 02/09/20 18:08 - Past Medical History Past Medical History: Yes Neurological History: No Pertinent History ENT History: No Pertinent History Cardiac History: Coronary Artery Disease, Hypertension, Myocardial Infarction ( [place]) Respiratory History: CHF Endocrine Medical History: Diabetes Type II Musculoskelatal History: Osteoarthritis GI Medical History: Other History: No Pertinent History Pyscho-Social History: No Pertinent History Reproductive Disorders: No Pertinent History Comment: CARDIAC STENT 01/02; Enlarged liver, open heart surgery 12/08/18 - Female History Are you now?: No - Past Surgical History Past Surgical History: Yes Neuro Surgical History: No Pertinent History Cardiac History: Angioplasty, CABG, Cardiac Catheterization, Cardiac Stent Respiratory Surgery: No Pertinent History GI Surgical History: No Pertinent History Genitourinary Surgical Hx: No Pertinent History Musculskeletal Surgical Hx: Other Female Surgical History: Hysterectomy Other Surgical History: cardiac stent x three December. CABG x 4 vessels in 3-2019, wound care for bilateral legs within the last year - Social History Smoking Status: Never smoker Exposure to second hand smoke: No Alcohol: None Drug Use: none - Physical Exam Vital Signs: Vital Signs - 24 hr Temp Pulse Resp BP Pulse Ox 02/10/20 12:00 96.3 F 58 L 16 126/72 94 L 02/10/20 10:04 96 H 141/87 02/10/20 08:00 96 H 02/10/20 06:36 98.0 F 80 17 141/87 97 02/10/20 04:01 97.6 F 82 20 126/74 95 02/10/20 03:57 82 02/10/20 03:56 97.6 F 82 20 126/74 95 02/10/20 00:01 98.8 F 80 17 127/67 98 02/09/20 19:49 98.9 F 82 13 150/75 98 02/09/20 18:13 98.9 F 82 13 150/75 98 02/09/20 17:51 92 L 02/09/20 17:22 76 16 132/66 97 02/09/20 16:06 97.6 F 58 L 18 126/66 98 General Appearance: no apparent distress, alert Neurologic Exam: alert, oriented x 3, normal mood/affect Eye Exam: eyes nml inspection, No scleral icterus Neck Exam: normal inspection Respiratory Exam: No respiratory distress Cardiovascular Exam: regular rate/rhythm Gastrointestinal/Abdomen Exam: soft, distention, No tenderness, No hepatomegaly , No splenomegaly Pelvic Exam: not done Rectal Exam: deferred (pt on bedside commode. not able to evaluate LE wound) Wound Assessment: Skin/Wound Assessment Wound/Incision Assessment Start: 02/09/20 20: 07 Text: Status: Active Freq: Q6H Protocol: Document 02/10/20 13:56 [facility] (Rec: 02/10/20 14:02 [facility] [id number]) Wound/Incision Assessment Right Lower Calf Wound Assessment Admission Wound Type Stasis Ulcer Wound Stage Non Pressure Wound Dressing Status Dry & Intact Drainage Amount None Drainage Odor None/Absent Comment Patient stated saw Dr Cheng yesterday for wound care, he dressed wound, states large wound to calf area and two smaller areas. does not want dressings removed Wound Photo Photo Taken No Comment: photo not taken. dressing CDI, Results - Labs Lab/Micro Results: Accuchecks Date 02/09/20 Date 02/10/20 Date 02/09/20 Time 11:30 Time 07:30 Time 22:00 Accucheck Value: 113 Accucheck Value: 127 Accucheck Value: 110 Lab Results-Last 24 Hours 02/09/20 02/09/20 02/09/20 Range/Units 15:47 15:47 15:47 WBC 5.4 (4.0-10.5) K/mm3 RBC 2.26 L (4.1-5.4) M/mm3 Hgb 7.5 L (12.0-16.0) gm/dl Hct 23.5 L (35-47) % MCV 104.0 H (78-100) fl MCH 33.2 H (26-32) pg MCHC 31.9 L (32-36) g/dl RDW 18.9 H (11.5-14.0) % Plt Count 331 (150-450) K/mm3 MPV 9.4 (7.5-11.0) fl Segmented Neutrophils 79 H (36.0-66.0) % Band Neutrophils 6 H (0.0-2.0) % Lymphocytes (Manual) 4 L (24-44) % Monocytes (Manual) 6 (0.0-12.0) % Basophils (Manual) 2 H (0.0-1.0) % Metamyelocytes 3 % Platelet Estimate NORMAL (NORMAL) RBC Morphology ABNORMAL Polychromasia 1+ Basophilic Stippling 1+ PT 17.4 H (9.95-12.35) SECONDS INR 1.53 (0.8-3.0) APTT 35.4 (25.3-37.0) SECONDS Sodium 139 (137-145) mmol/L Potassium 3.9 (3.5-5.1) mmol/L Chloride 96 L (98-107) mmol/L Carbon Dioxide 34 H (22-30) mmol/L Anion Gap 12.5 (5-15) MEQ/L BUN 40 H (7-17) mg/dL Creatinine 1.44 H (0.52-1.04) mg/dL Estimated GFR 36.9 ML/MIN Glucose 116 H (74-106) mg/dL Hemoglobin A1c (4.5-6.0) % Calcium 8.7 (8.4-10.2) mg/dL Total Bilirubin 0.40 (0.2-1.3) mg/dL AST 21 (14-36) U/L ALT 12 (0-35) U/L Alkaline Phosphatase 85 (38-126) U/L Troponin I (0.000-0.034) ng/mL Serum Total Protein 6.2 L (6.3-8.2) g/dL Albumin 3.6 (3.5-5.0) g/dL Prealbumin (17.6-36.0) mg/dL Stool Occult Bld Scrn (NEGATIVE) ABO Group Rh Factor Antibody Screen (NEGATIVE) Crossmatch (COMPATIBLE) 02/09/20 02/09/20 02/09/20 Range/Units 15:55 15:55 17:35 WBC (4.0-10.5) K/mm3 RBC (4.1-5.4) M/mm3 Hgb (12.0-16.0) gm/dl Hct (35-47) % MCV (78-100) fl MCH (26-32) pg MCHC (32-36) g/dl RDW (11.5-14.0) % Plt Count (150-450) K/mm3 MPV (7.5-11.0) fl Segmented Neutrophils (36.0-66.0) % Band Neutrophils (0.0-2.0) % Lymphocytes (Manual) (24-44) % Monocytes (Manual) (0.0-12.0) % Basophils (Manual) (0.0-1.0) % Metamyelocytes % Platelet Estimate (NORMAL) RBC Morphology Polychromasia Basophilic Stippling PT (9.95-12.35) SECONDS INR (0.8-3.0) APTT (25.3-37.0) SECONDS Sodium (137-145) mmol/L Potassium (3.5-5.1) mmol/L Chloride (98-107) mmol/L Carbon Dioxide (22-30) mmol/L Anion Gap (5-15) MEQ/L BUN (7-17) mg/dL Creatinine (0.52-1.04) mg/dL Estimated GFR ML/MIN Glucose (74-106) mg/dL Hemoglobin A1c (4.5-6.0) % Calcium (8.4-10.2) mg/dL Total Bilirubin (0.2-1.3) mg/dL AST (14-36) U/L ALT (0-35) U/L Alkaline Phosphatase (38-126) U/L Troponin I < 0.012 (0.000-0.034) ng/mL Serum Total Protein (6.3-8.2) g/dL Albumin (3.5-5.0) g/dL Prealbumin (17.6-36.0) mg/dL Stool Occult Bld Scrn POSITIVE A (NEGATIVE) ABO Group O Rh Factor NEGATIVE Antibody Screen NEGATIVE (NEGATIVE) Crossmatch COMPATIBLE (COMPATIBLE) 02/09/20 02/09/20 02/09/20 Range/Units 17:35 17:35 17:35 WBC (4.0-10.5) K/mm3 RBC (4.1-5.4) M/mm3 Hgb (12.0-16.0) gm/dl Hct (35-47) % MCV (78-100) fl MCH (26-32) pg MCHC (32-36) g/dl RDW (11.5-14.0) % Plt Count (150-450) K/mm3 MPV (7.5-11.0) fl Segmented Neutrophils (36.0-66.0) % Band Neutrophils (0.0-2.0) % Lymphocytes (Manual) (24-44) % Monocytes (Manual) (0.0-12.0) % Basophils (Manual) (0.0-1.0) % Metamyelocytes % Platelet Estimate (NORMAL) RBC Morphology Polychromasia Basophilic Stippling PT (9.95-12.35) SECONDS INR (0.8-3.0) APTT (25.3-37.0) SECONDS Sodium (137-145) mmol/L Potassium (3.5-5.1) mmol/L Chloride (98-107) mmol/L Carbon Dioxide (22-30) mmol/L Anion Gap (5-15) MEQ/L BUN (7-17) mg/dL Creatinine (0.52-1.04) mg/dL Estimated GFR ML/MIN Glucose (74-106) mg/dL Hemoglobin A1c (4.5-6.0) % Calcium (8.4-10.2) mg/dL Total Bilirubin (0.2-1.3) mg/dL AST (14-36) U/L ALT (0-35) U/L Alkaline Phosphatase (38-126) U/L Troponin I (0.000-0.034) ng/mL Serum Total Protein (6.3-8.2) g/dL Albumin (3.5-5.0) g/dL Prealbumin (17.6-36.0) mg/dL Stool Occult Bld Scrn (NEGATIVE) ABO Group Rh Factor Antibody Screen (NEGATIVE) Crossmatch COMPATIBLE COMPATIBLE COMPATIBLE (COMPATIBLE) 02/09/20 02/09/20 02/10/20 Range/Units 17:50 18:00 05:00 WBC 5.0 5.9 (4.0-10.5) K/mm3 RBC 2.31 L 3.09 L (4.1-5.4) M/mm3 Hgb 7.7 L 9.9 L D (12.0-16.0) gm/dl Hct 23.9 L 30.3 L (35-47) % MCV 103.5 H 98.1 (78-100) fl MCH 33.3 H 32.0 (26-32) pg MCHC 32.2 32.7 (32-36) g/dl RDW 18.9 H 19.3 H (11.5-14.0) % Plt Count 345 319 (150-450) K/mm3 MPV 9.6 9.5 (7.5-11.0) fl Segmented Neutrophils (36.0-66.0) % Band Neutrophils (0.0-2.0) % Lymphocytes (Manual) (24-44) % Monocytes (Manual) (0.0-12.0) % Basophils (Manual) (0.0-1.0) % Metamyelocytes % Platelet Estimate (NORMAL) RBC Morphology Polychromasia Basophilic Stippling PT (9.95-12.35) SECONDS INR (0.8-3.0) APTT (25.3-37.0) SECONDS Sodium (137-145) mmol/L Potassium (3.5-5.1) mmol/L Chloride (98-107) mmol/L Carbon Dioxide (22-30) mmol/L Anion Gap (5-15) MEQ/L BUN (7-17) mg/dL Creatinine (0.52-1.04) mg/dL Estimated GFR ML/MIN Glucose (74-106) mg/dL Hemoglobin A1c (4.5-6.0) % Calcium (8.4-10.2) mg/dL Total Bilirubin (0.2-1.3) mg/dL AST (14-36) U/L ALT (0-35) U/L Alkaline Phosphatase (38-126) U/L Troponin I (0.000-0.034) ng/mL Serum Total Protein (6.3-8.2) g/dL Albumin (3.5-5.0) g/dL Prealbumin 20.13 (17.6-36.0) mg/dL Stool Occult Bld Scrn (NEGATIVE) ABO Group Rh Factor Antibody Screen (NEGATIVE) Crossmatch (COMPATIBLE) 02/10/20 02/10/20 Range/Units 08:15 14:16 WBC (4.0-10.5) K/mm3 RBC (4.1-5.4) M/mm3 Hgb 11.9 L D (12.0-16.0) gm/dl Hct 36.9 (35-47) % MCV (78-100) fl MCH (26-32) pg MCHC (32-36) g/dl RDW (11.5-14.0) % Plt Count (150-450) K/mm3 MPV (7.5-11.0) fl Segmented Neutrophils (36.0-66.0) % Band Neutrophils (0.0-2.0) % Lymphocytes (Manual) (24-44) % Monocytes (Manual) (0.0-12.0) % Basophils (Manual) (0.0-1.0) % Metamyelocytes % Platelet Estimate (NORMAL) RBC Morphology Polychromasia Basophilic Stippling PT (9.95-12.35) SECONDS INR (0.8-3.0) APTT (25.3-37.0) SECONDS Sodium (137-145) mmol/L Potassium (3.5-5.1) mmol/L Chloride (98-107) mmol/L Carbon Dioxide (22-30) mmol/L Anion Gap (5-15) MEQ/L BUN (7-17) mg/dL Creatinine (0.52-1.04) mg/dL Estimated GFR ML/MIN Glucose (74-106) mg/dL Hemoglobin A1c 5.66 (4.5-6.0) % Calcium (8.4-10.2) mg/dL Total Bilirubin (0.2-1.3) mg/dL AST (14-36) U/L ALT (0-35) U/L Alkaline Phosphatase (38-126) U/L Troponin I (0.000-0.034) ng/mL Serum Total Protein (6.3-8.2) g/dL Albumin (3.5-5.0) g/dL Prealbumin (17.6-36.0) mg/dL Stool Occult Bld Scrn (NEGATIVE) ABO Group Rh Factor Antibody Screen (NEGATIVE) Crossmatch (COMPATIBLE) Accuchecks Date 02/09/20 Date 02/10/20 Date 02/09/20 Time 11:30 Time 07:30 Time 22:00 Accucheck Value: 113 Accucheck Value: 127 Accucheck Value: 110 - Radiology Impressions Radiology Exams & Impressions: Radiology Procedures Category Date Time Status ABDOMEN AND PELVIS W/0 CONTRAS [CT] Stat Exams 02/09/20 16:29 Completed CHEST 1 VIEW (PORTABLE) Stat Exams 02/09/20 15:43 Completed Assessment/Plan (1) GI bleed Current Visit: Yes Status: Acute Assessment & Plan: 84yo female on asa, plavix with marroon bloody stools, no prior c scope. hemodynamically stable appropriate response to blood transfusion, stools clearing with prep does not appear to be actively bleeding. -hold antiplatelet for right now -EGD/colonoscopy today. -ppi -supportive care. Code(s): K92.2 - GASTROINTESTINAL HEMORRHAGE, UNSPECIFIED
[2020-02-10] MEDS ORDERED: DIPRIVAN 200 MG/20 ML IV ONE (16:04)
--- NOTE | 2020-02-10 16:19 | PCM.HP ---
History of Present Illness - Chief Complaint Chief Complaint: lower GI bleed History of Present Illness: is a 84 year old female. Please see Short Stay Summary. Medications & Allergies Home Medications: Home Medication List Aspirin EC 81 mg [Ecotrin 81 mg] 81 mg PO DAILY 02/12/19 [History Confirmed 02/09/20] Magnesium Amino Acid Chelate [Magnesium] 400 mg PO DAILY 02/12/19 [History Confirmed 02/09/20] Metoprolol Tartrate 50 mg [Lopressor 50 MG] 50 mg PO DAILY 02/12/19 [History Confirmed 02/09/20] Sitagliptin Phosphate [Januvia] 100 mg PO DAILY 02/12/19 [History Confirmed 02/09/20] Doxazosin Mesylate 1 mg PO DAILY 10/08/19 [History Confirmed 02/09/20] Furosemide 40 mg [Lasix 40 MG] 40 mg PO BID 10/08/19 [History Confirmed 02/09/20] Hydralazine HCl 50 mg PO TID 10/08/19 [History Confirmed 02/09/20] Gabapentin [Neurontin] 100 mg PO BID 02/09/20 [History Confirmed 02/09/20] Aspirin EC 81 mg [Ecotrin 81 mg] 81 mg PO DAILY #60 tablet.ec 02/11/20 [Rx] Allergies/Adverse Reactions: Allergies Allergy/AdvReac Type Severity Reaction Status Date / Time No Known Drug Allergies Allergy Verified 02/09/20 18:08 - Past Medical History Past Medical History: Yes Neurological History: No Pertinent History ENT History: No Pertinent History Cardiac History: Coronary Artery Disease, Hypertension, Myocardial Infarction (DE) Respiratory History: CHF Endocrine Medical History: Diabetes Type II Musculoskelatal History: Osteoarthritis GI Medical History: Other History: No Pertinent History Pyscho-Social History: No Pertinent History Reproductive Disorders: No Pertinent History Comment: CARDIAC STENT 01/02; Enlarged liver, open heart surgery 12/08/18 - Female History Are you now?: No - Past Surgical History Past Surgical History: Yes Neuro Surgical History: No Pertinent History Cardiac History: Angioplasty, CABG, Cardiac Catheterization, Cardiac Stent Respiratory Surgery: No Pertinent History GI Surgical History: No Pertinent History Genitourinary Surgical Hx: No Pertinent History Musculskeletal Surgical Hx: Other Female Surgical History: Hysterectomy Other Surgical History: cardiac stent x three December. CABG x 4 vessels in -2018, wound care for bilateral legs within the last year - Social History Smoking Status: Never smoker Exposure to second hand smoke: No Alcohol: None Drug Use: none - Physical Exam Vital Signs: Vital Signs - 24 hr Temp Pulse Resp BP Pulse Ox 02/10/20 15:40 97.6 F 79 18 147/73 99 02/10/20 12:00 96.3 F 58 L 16 126/72 94 L 02/10/20 10:04 96 H 141/87 02/10/20 08:00 96 H 02/10/20 06:36 98.0 F 80 17 141/87 97 02/10/20 04:01 97.6 F 82 20 126/74 95 02/10/20 03:57 82 02/10/20 03:56 97.6 F 82 20 126/74 95 02/10/20 00:01 98.8 F 80 17 127/67 98 02/09/20 19:49 98.9 F 82 13 150/75 98 02/09/20 18:13 98.9 F 82 13 150/75 98 02/09/20 17:51 92 L 02/09/20 17:22 76 16 132/66 97 Wound Assessment: Skin/Wound Assessment Wound/Incision Assessment Start: 02/09/20 20:07 Text: Status: Active Freq: Q6H Protocol: Document 02/10/20 13:56 [facility] (Rec: 02/10/20 14:02 [facility] [id number]) Wound/Incision Assessment Right Lower Calf Wound Assessment Admission Wound Type Stasis Ulcer Wound Stage Non Pressure Wound Dressing Status Dry & Intact Drainage Amount None Drainage Odor None/Absent Comment Patient stated saw Dr Cheng yesterday for wound care, he dressed wound, states large wound to calf area and two smaller areas. does not want dressings removed Wound Photo Photo Taken No Comment: photo not taken. dressing CDI, Results - Labs Lab/Micro Results: Accuchecks Date 02/10/20 Date 02/09/20 Date 02/10/20 Date 02/09/20 Time 15:35 Time 11:30 Time 07:30 Time 22:00 Accucheck Value: 110 Accucheck Value: 113 Accucheck Value: 127 Accucheck Value: 110 Lab Results-Last 24 Hours 02/09/20 02/09/20 02/09/20 Range/Units 15:47 15:55 17:35 WBC (4.0-10.5) K/mm3 RBC (4.1-5.4) M/mm3 Hgb (12.0-16.0) gm/dl Hct (35-47) % MCV (78-100) fl MCH (26-32) pg MCHC (32-36) g/dl RDW (11.5-14.0) % Plt Count (150-450) K/mm3 MPV (7.5-11.0) fl Segmented Neutrophils 79 H (36.0-66.0) % Band Neutrophils 6 H (0.0-2.0) % Lymphocytes (Manual) 4 L (24-44) % Monocytes (Manual) 6 (0.0-12.0) % Basophils (Manual) 2 H (0.0-1.0) % Metamyelocytes 3 % Platelet Estimate NORMAL (NORMAL) RBC Morphology ABNORMAL Polychromasia 1+ Basophilic Stippling 1+ Hemoglobin A1c (4.5-6.0) % Troponin I < 0.012 (0.000-0.034) ng/mL Prealbumin (17.6-36.0) mg/dL ABO Group O Rh Factor NEGATIVE Antibody Screen NEGATIVE (NEGATIVE) Crossmatch COMPATIBLE (COMPATIBLE) 02/09/20 02/09/20 02/09/20 Range/Units 17:35 17:35 17:35 WBC (4.0-10.5) K/mm3 RBC (4.1-5.4) M/mm3 Hgb (12.0-16.0) gm/dl Hct (35-47) % MCV (78-100) fl MCH (26-32) pg MCHC (32-36) g/dl RDW (11.5-14.0) % Plt Count (150-450) K/mm3 MPV (7.5-11.0) fl Segmented Neutrophils (36.0-66.0) % Band Neutrophils (0.0-2.0) % Lymphocytes (Manual) (24-44) % Monocytes (Manual) (0.0-12.0) % Basophils (Manual) (0.0-1.0) % Metamyelocytes % Platelet Estimate (NORMAL) RBC Morphology Polychromasia Basophilic Stippling Hemoglobin A1c (4.5-6.0) % Troponin I (0.000-0.034) ng/mL Prealbumin (17.6-36.0) mg/dL ABO Group Rh Factor Antibody Screen (NEGATIVE) Crossmatch COMPATIBLE COMPATIBLE COMPATIBLE (COMPATIBLE) 02/09/20 02/09/20 02/10/20 Range/Units 17:50 18:00 05:00 WBC 5.0 5.9 (4.0-10.5) K/mm3 RBC 2.31 L 3.09 L (4.1-5.4) M/mm3 Hgb 7.7 L 9.9 L D (12.0-16.0) gm/dl Hct 23.9 L 30.3 L (35-47) % MCV 103.5 H 98.1 (78-100) fl MCH 33.3 H 32.0 (26-32) pg MCHC 32.2 32.7 (32-36) g/dl RDW 18.9 H 19.3 H (11.5-14.0) % Plt Count 345 319 (150-450) K/mm3 MPV 9.6 9.5 (7.5-11.0) fl Segmented Neutrophils (36.0-66.0) % Band Neutrophils (0.0-2.0) % Lymphocytes (Manual) (24-44) % Monocytes (Manual) (0.0-12.0) % Basophils (Manual) (0.0-1.0) % Metamyelocytes % Platelet Estimate (NORMAL) RBC Morphology Polychromasia Basophilic Stippling Hemoglobin A1c (4.5-6.0) % Troponin I (0.000-0.034) ng/mL Prealbumin 20.13 (17.6-36.0) mg/dL ABO Group Rh Factor Antibody Screen (NEGATIVE) Crossmatch (COMPATIBLE) 02/10/20 02/10/20 Range/Units 08:15 14:16 WBC (4.0-10.5) K/mm3 RBC (4.1-5.4) M/mm3 Hgb 11.9 L D (12.0-16.0) gm/dl Hct 36.9 (35-47) % MCV (78-100) fl MCH (26-32) pg MCHC (32-36) g/dl RDW (11.5-14.0) % Plt Count (150-450) K/mm3 MPV (7.5-11.0) fl Segmented Neutrophils (36.0-66.0) % Band Neutrophils (0.0-2.0) % Lymphocytes (Manual) (24-44) % Monocytes (Manual) (0.0-12.0) % Basophils (Manual) (0.0-1.0) % Metamyelocytes % Platelet Estimate (NORMAL) RBC Morphology Polychromasia Basophilic Stippling Hemoglobin A1c 5.66 (4.5-6.0) % Troponin I (0.000-0.034) ng/mL Prealbumin (17.6-36.0) mg/dL ABO Group Rh Factor Antibody Screen (NEGATIVE) Crossmatch (COMPATIBLE) Accuchecks Date 02/10/20 Date 02/09/20 Date 02/10/20 Date 02/09/20 Time 15:35 Time 11:30 Time 07:30 Time 22:00 Accucheck Value: 110 Accucheck Value: 113 Accucheck Value: 127 Accucheck Value: 110 - Radiology Impressions Radiology Exams & Impressions: Radiology Procedures Category Date Time Status ABDOMEN AND PELVIS W/0 CONTRAS [CT] Stat Exams 02/09/20 16:29 Completed CHEST 1 VIEW (PORTABLE) Stat Exams 02/09/20 15:43 Completed
[2020-02-10] MEDS: Sodium Chloride 0.9% 1000 ML 1,000 ML IV SCH (17:32)
[2020-02-10] MEDS: PROTONIX 40 MG IV IV SCH (18:03)
[2020-02-11 06:55] VITALS: BP 135/75; PULSE 80; O2SAT 96
--- NOTE | 2020-02-11 09:05 | PCM.SSS ---
History of Present Illness - Chief Complaint Chief Complaint: lower GI bleed History of Present Illness: is a 84 year old female who lives independently and had been feeling well but developed loose stool with 2 episode of dark stool follow by red stool x the day of admission.She has CAD [employer] In[employer] is DR Horner. She denied chest pain or palpitations or GUY .She has wound care following her for RLE and has an rene boot on and is using a cane due to this.She has had a good appetite and no N/V has not had a colonoscopy in the past. - Review of Systems Constitutional: No Symptoms Eyes: No Symptoms Ears, Nose, & Throat: No Symptoms Respiratory: No Symptoms Cardiac: Edema, Other (PVD chronic wound RLE,edema bilateraly) Abdominal/Gastrointestinal: Hematochezia, Other (stools) Genitourinary Symptoms: No Symptoms Musculoskeletal: Arthralgias Skin: Other (RLE chronic ulcer,rene boot on) Psychological: No Symptoms Endocrine: No Symptoms Hematologic/Lymphatic: Other (fpc anticoag,rectal bleeding see HPI) Medications & Allergies Home Medications: Home Medication List Aspirin EC 81 mg [Ecotrin 81 mg] 81 mg PO DAILY 02/12/19 [History Confirmed 02/09/20] Magnesium Amino Acid Chelate [Magnesium] 400 mg PO DAILY 02/12/19 [History Confirmed 02/09/20] Metoprolol Tartrate 50 mg [Lopressor 50 MG] 50 mg PO DAILY 02/12/19 [History Confirmed 02/09/20] Sitagliptin Phosphate [Januvia] 100 mg PO DAILY 02/12/19 [History Confirmed 02/09/20] Doxazosin Mesylate 1 mg PO DAILY 10/08/19 [History Confirmed 02/09/20] Furosemide 40 mg [Lasix 40 MG] 40 mg PO BID 10/08/19 [History Confirmed 02/09/20] Hydralazine HCl 50 mg PO TID 10/08/19 [History Confirmed 02/09/20] Gabapentin [Neurontin] 100 mg PO BID 02/09/20 [History Confirmed 02/09/20] Aspirin EC 81 mg [Ecotrin 81 mg] 81 mg PO DAILY #60 tablet.ec 02/11/20 [Rx] Allergies/Adverse Reactions: Allergies Allergy/AdvReac Type Severity Reaction Status Date / Time No Known Drug Allergies Allergy Verified 02/09/20 18:08 - Past Medical History Past Medical History: Yes Neurological History: No Pertinent History ENT History: No Pertinent History Cardiac History: Coronary Artery Disease, Hypertension, Myocardial Infarction ([place]) Respiratory History: CHF Endocrine Medical History: Diabetes Type II Musculoskelatal History: Osteoarthritis GI Medical History: Other History: No Pertinent History Pyscho-Social History: No Pertinent History Reproductive Disorders: No Pertinent History Comment: CARDIAC STENT 01/02; Enlarged liver, open heart surgery 12/08/18 - Female History Are you now?: No - Past Surgical History Past Surgical History: Yes Neuro Surgical History: No Pertinent History Cardiac History: Angioplasty, CABG, Cardiac Catheterization, Cardiac Stent Respiratory Surgery: No Pertinent History GI Surgical History: No Pertinent History Genitourinary Surgical Hx: No Pertinent History Musculskeletal Surgical Hx: Other Female Surgical History: Hysterectomy Other Surgical History: cardiac stent x three December. CABG x 4 vessels in , wound care for bilateral legs within the last year - Social History Smoking Status: Never smoker Exposure to second hand smoke: No Alcohol: None Drug Use: none - Physical Exam Vital Signs: Vital Signs - 24 hr Temp Pulse Resp BP Pulse Ox 02/11/20 06:54 98.1 F 80 18 135/75 96 02/11/20 03:44 70 02/11/20 03:00 97.9 F 87 20 138/63 94 L 02/11/20 00:01 70 02/10/20 23:00 97.9 F 71 23 124/63 96 02/10/20 20:00 59 L 02/10/20 19:00 97.8 F 60 15 128/61 95 02/10/20 15:40 97.6 F 79 18 147/73 99 02/10/20 12:00 96.3 F 58 L 16 126/72 94 L 02/10/20 10:04 96 H 141/87 General Appearance: no apparent distress, other (appears younger than stated age,does not appear acutely ill) Neurologic Exam: alert, oriented x 3, normal mood/affect, other (walks with cane due to rene boot on RLE) Eye Exam: PERRL/EOMI Ears, Nose, Throat Exam: normal ENT inspection Neck Exam: normal inspection Respiratory Exam: other (no dyspnea or rales or ronchi or wheeze) Cardiovascular Exam: regular rate/rhythm, other (pedal edema) Gastrointestinal/Abdomen Exam: soft (minimal tenderness no guarding LLQ), normal bowel sounds Pelvic Exam: not done Rectal Exam: deferred (Gen Surg consult and colonoscopy) Back Exam: other (no CVA tenderness) Extremity Exam: other (can move all extremities but boot bandage is on RLE toes are pink and warm) Wound Assessment: Skin/Wound Assessment Wound/Incision Assessment Start: 02/09/20 20:07 Text: Status: Active Freq: Q6H Protocol: Document 02/11/20 08:00 [facility] (Rec: 02/11/20 08:44 [facility] [id number]) Wound/Incision Assessment Right Lower Calf Wound Assessment Shift Assessment Wound Type Stasis Ulcer Wound Stage Non Pressure Wound Dressing Status Dry & Intact Drainage Amount None Drainage Odor None/Absent Comment . Results - Labs Lab/Micro Results: Accuchecks Date 02/11/20 Date 02/10/20 Date 02/10/20 Date 02/10/20 Date 02/09/20 Time 07:30 Time 21:00 Time 15:30 Time 15:35 Time 11:30 Accucheck Value: 127 Accucheck Value: 117 Accucheck Value: 110 Accucheck Value: 110 Accucheck Value: 113 Lab Results-Last 24 Hours 02/10/20 02/10/20 Range/Units 08:15 14:16 Hgb 11.9 L D (12.0-16.0) gm/dl Hct 36.9 (35-47) % Hemoglobin A1c 5.66 (4.5-6.0) % Accuchecks Date 02/11/20 Date 02/10/20 Date 02/10/20 Date 02/10/20 Date 02/09/20 Time 07:30 Time 21:00 Time 15:30 Time 15:35 Time 11:30 Accucheck Value: 127 Accucheck Value: 117 Accucheck Value: 110 Accucheck Value: 110 Accucheck Value: 113 - Radiology Impressions Radiology Exams & Impressions: Radiology Procedures Category Date Time Status ABDOMEN AND PELVIS W/0 CONTRAS [CT] Stat Exams 02/09/20 16:29 Completed CHEST 1 VIEW (PORTABLE) Stat Exams 02/09/20 15:43 Completed Assessment/Plan (1) GI bleed Status: Acute Qualifiers: GI bleed type/associated pathology: diverticulosis Qualified Code(s): K57.91 - Diverticulosis of intestine, part unspecified, without perforation or abscess with bleeding Assessment & Plan: lower GI bleed,extensive diverticular dz per colonoscopy Code(s): K92.2 - GASTROINTESTINAL HEMORRHAGE, UNSPECIFIED (2) Anemia due to blood loss, acute Status: Resolved Assessment & Plan: initial Hgb =7.7, post transfusion 3units PRBC, Hgb=11.9 Code(s): D62 - ACUTE POSTHEMORRHAGIC ANEMIA (3) DM2 (diabetes mellitus, type 2) Status: Chronic Qualifiers: 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 transplanted heart: [place] heart Associated angina: without angina Qualified Code(s): I25.810 - Atherosclerosis of coronary artery bypass graft(s) without angina pectoris Assessment & Plan: stable Code(s): I25.810 - ATHEROSCLEROSIS OF CABG W/O ANGINA PECTORIS Hospital Summary - Hospital Course Hospital Course: Patient was admitted with symptoms of LGI bleed with Hgb= 7.7 . She was on Plavix . Patient was transfused and Hgb up to 11.9 and no further bleeding . Gen Surg consult and scope.Colonoscopy did not find an active bleed but showed extensive diverticualr dz. CAD and DM2 stable,controlled. RLE chronic ulcer in Rene boot type bandage was not removed. Patient will follow with each of her Specialists and PCP. - Vitals & Intake/Output Vital Signs: Vital Signs Temperature 98.1 F 02/11/20 06:54 Pulse Rate 80 02/11/20 06:54 Respiratory Rate 18 02/11/20 06:54 Blood Pressure 135/75 02/11/20 06:54 O2 Sat by Pulse Oximetry 96 02/11/20 06:54 Intake & Output: Intake & Output 02/08/20 02/09/20 02/10/20 02/11/20 11:59 11:59 11:59 11:59 Intake Total 805 2271 Output Total 2100 1999 Balance -1295 271 Weight 62.8 kg - Lab Result Diagrams: 02/10/20 14:16 02/09/20 15:47 Lab Results-Last 24 Hrs: Accuchecks Date 02/11/20 Date 02/10/20 Date 02/10/20 Date 02/10/20 Date 02/09/20 Time 07:30 Time 21:00 Time 15:30 Time 15:35 Time 11:30 Accucheck Value: 127 Accucheck Value: 117 Accucheck Value: 110 Accucheck Value: 110 Accucheck Value: 113 Lab Results-Last 24 Hours 02/10/20 02/10/20 Range/Units 08:15 14:16 Hgb 11.9 L D (12.0-16.0) gm/dl Hct 36.9 (35-47) % Hemoglobin A1c 5.66 (4.5-6.0) % Micro Results-Entire Visit: Accuchecks Date 02/11/2002/10/2002/10/2002/10/20 Date 02/09/20 Time 07:30 Time 21:00 Time 15:30 Time 15:35 Time 11:30 Accucheck Value: 127 Accucheck Value: 117 Accucheck Value: 110 Accucheck Value: 110 Accucheck Value: 113 - Radiology Exams Ordered Rad Exams-Entire Visit: Radiology Procedures Category Date Time Status ABDOMEN AND PELVIS W/0 CONTRAS [CT] Stat Exams 02/09/20 16:29 Completed CHEST 1 VIEW (PORTABLE) Stat Exams 02/09/20 15:43 Completed - Procedures and Test Procedures and Tests throughout Hospitalization: Therapy Orders & Screens 02/09/20 20:18 OT Screen per Nursing Assess ONCE Comment: Protocol Order Physician Instructions: Greater than 3 points order OT Admission Screening Reason For Exam: Triggered on Admission Diagnosis: lower GI bleed Open Wound/Cellutlitis/Pressure Ulcers: Yes Acute Fx/ORIF/Change in wt bearing status: No Severe MUSCULOSKELETAL pain: No ADL Dysfunction: No Acute CVA w/Hemiparesis/Hemiplegia: No Decreased Functional Mobility/Strength: No Sprain/Strain: No Acute Post-op Mobility Dysfunction: No Total Points: 5 PT Screen per Nursing Assess ONCE Comment: Protocol Order Physician Instructions: Greater than 3 points order PT Admission Screenin Reason For Exam: Triggered on Admission Diagnosis: lower GI bleed Open Wound/Cellutlitis/Pressure Ulcers: Yes Acute Fx/ORIF/Change in wt bearing status: No Severe MUSCULOSKELETAL pain: No ADL Dysfunction: No Acute CVA w/Hemiparesis/Hemiplegia: No Decreased Functional Mobility/Strength: No Sprain/Strain: No Acute Post-op Mobility Dysfunction: No Total Points: 5 02/10/20 09:33 EKG ROUTINE Comment: Diagnosis: lower GI bleed - Discharge Disposition: Home, Self-Care Condition: Stable Prescriptions: New Aspirin EC 81 mg [Ecotrin 81 mg] 81 mg PO DAILY #60 tablet.ec Continue Aspirin EC 81 mg [Ecotrin 81 mg] 81 mg PO DAILY Metoprolol Tartrate 50 mg [Lopressor 50 MG] 50 mg PO DAILY Magnesium Amino Acid Chelate [Magnesium] 400 mg PO DAILY Sitagliptin Phosphate [Januvia] 100 mg PO DAILY Hydralazine HCl 50 mg PO TID Doxazosin Mesylate 1 mg PO DAILY Furosemide 40 mg [Lasix 40 MG] 40 mg PO BID Gabapentin [Neurontin] 100 mg PO BID Discontinued Clopidogrel Bisulfate 75 mg [PLAVIX 75 MG Tablet] 75 mg PO DAILY Instructions: Gastrointestinal Bleeding (DC) Follow up with: RONALD BROWNLEE DO [ACTIVE STAFF] - 02/21/20 1:00 pm (YOU WILL FOLLOWUP WITH DR. BROWNLEE ON February AT 1:[address] [place] [facility] [place] Forms: Discharge Instructions
--- NOTE | 2020-02-11 09:10 | PCM.DCORD ---
- Discharge Discharge Date: 02/11/20 Disposition: Home, Self-Care Condition: Stable Prescriptions: New Aspirin EC 81 mg [Ecotrin 81 mg] 81 mg PO DAILY #60 tablet.ec Continue Aspirin EC 81 mg [Ecotrin 81 mg] 81 mg PO DAILY Metoprolol Tartrate 50 mg [Lopressor 50 MG] 50 mg PO DAILY Magnesium Amino Acid Chelate [Magnesium] 400 mg PO DAILY Sitagliptin Phosphate [Januvia] 100 mg PO DAILY Hydralazine HCl 50 mg PO TID Doxazosin Mesylate 1 mg PO DAILY Furosemide 40 mg [Lasix 40 MG] 40 mg PO BID Gabapentin [Neurontin] 100 mg PO BID Discontinued Clopidogrel Bisulfate 75 mg [PLAVIX 75 MG Tablet] 75 mg PO DAILY Instructions: Gastrointestinal Bleeding (DC) Follow up with: RONALD BROWNLEE DO [ACTIVE STAFF] - 02/21/20 1:00 pm (YOU WILL FOLLOWUP WITH DR. BROWNLEE ON February AT 1:[address] [place] [facility] [place]
[2020-02-11] MEDS: Januvia 50 MG PO SCH (09:26)
[2020-02-11] MEDS: CARDURA 2 MG PO SCH (09:26)
[2020-02-11] MEDS: Lopressor 50 MG PO SCH (09:28)
--- NOTE | 2020-02-11 09:28 | OP ---
SURGERY DATE/TIME: 02/10/2020 1618 PREOPERATIVE DIAGNOSIS: GI bleed. POSTOPERATIVE DIAGNOSES: 1) GI bleed unclear source but likely diverticular. 2) Extensive diverticulosis. PROCEDURES: 1) EGD. 2) Colonoscopy. SURGEON: Logan Neely M.D. ANESTHESIA: IV anesthesia. ESTIMATED BLOOD LOSS: 0. PATIENT CONDITION: Stable. COMPLICATIONS: None. SPECIMENS: None. INDICATIONS: The patient is an 84 year-old female with dark bloody stools per rectum. She is anemic with hemoglobin of 7. She responded appropriately to blood transfusion. She has been hemodynamically stable. She was prepped for colonoscopy. Risk of infection, bleeding, perforation were discussed with the patient and she elected to proceed. FINDINGS: Excellent prep. EGD completely normal. Colonoscopy excellent prep. Terminal ileum and complete colon evaluated. There is extensive diverticulosis, some very minimal external/internal hemorrhoid. The likely source of bleeding is diverticular. There is no obvious source of bleeding otherwise. DESCRIPTION OF PROCEDURE: The patient was brought to the endoscopy suite. She was positioned. MAC anesthesia was induced. Gastroscope was introduced through the mouth advanced to the third portion of the duodenum. Duodenum was normal. Antrum was normal. Scope was retroflexed. Hiatus was normal. The rest of the stomach was normal. The gastroesophageal junction was evaluated and was normal. The stomach was desufflated and scope withdrawn. The esophagus is normal. The patient was then repositioned for colonoscopy. External exam showed some mild external hemorrhoids. Digital rectal exam was normal. The colonoscope was introduced and this was advanced all the way to the terminal ileum. The terminal ileum is normal. The cecum, transverse colon, descending colon were all normal. There is excellent prep with complete visualization. The sigmoid colon had extensive diverticulosis with small, medium, large mouth diverticulum. There was no sign of active bleeding. There was no residual blood. The scope is attempted to retroflex but the rectum would not accommodate. Antegrade view showed very minimal internal hemorrhoid that was not the source of bleeding. The patient tolerated the procedure well and was taken to recovery in stable condition.
[2020-02-11] MEDS: Lasix 40 MG PO SCH (09:29)
[2020-02-11] MEDS: MAG-OX 400 PO SCH (09:29)
[2020-02-11] MEDS: Neurontin 100 MG PO SCH (09:29)
[2020-02-11] MEDS: Apresoline 25 MG TABLET PO SCH (09:29)
[2020-02-11] MEDS ORDERED: ECOTRIN 81 MG PO SCH (10:00)
== END 2020-02-11 11:21 | disposition home or self-care (01) ==
LOC: ED 14:46 → ICU 18:01
PROVIDERS: ADMIT Family Medicine; ATTEND Family Medicine
DX: K62.5 Hemorrhage of anus and rectum (principal); K57.30 Diverticulosis of large intestine without perforation or abscess without bleeding; K64.8 Other hemorrhoids; K64.4 Residual hemorrhoidal skin tags; I83.012 Varicose veins of right lower extremity with ulcer of calf; L97.219 Non-pressure chronic ulcer of right calf with unspecified severity; I10 Essential (primary) hypertension; E11.9 Type 2 diabetes mellitus without complications; I25.10 Atherosclerotic heart disease of native coronary artery without angina pectoris; Z95.1 Presence of aortocoronary bypass graft; Z79.01 Long term (current) use of anticoagulants; Z79.899 Other long term (current) drug therapy; I25.2 Old myocardial infarction
CPT/HCPCS: 36000; 36415; 36430; 43235; 45378; 71045; 74176; 80053; 82270; 82962; 83036; 84134; 84484; 85014; 85018; 85025; 85027; 85610; 85730; 86850; 86900; 86901; 86922; 93005; 93268; 99285; G0378; P9016; 99100; J1940; J1956; J2704; J3480; A9270-GY

== ENCOUNTER 2021-02-24 09:34 | Emergency (ER) | payer MEDICARE ==
[2021-02-24 10:06] VITALS: BP 146/71; PULSE 65; O2SAT 99
[2021-02-24] MEDS ORDERED: solu-MEDROL 125 MG IM ONE (10:20)
[2021-02-24] MEDS ORDERED: NORCO 5/325 MG PO ONE (10:20)
[2021-02-24] MEDS ORDERED: solu-MEDROL 125 MG ONE (10:25)
[2021-02-24] MEDS ORDERED: NORCO 5/325 MG ONE (10:25)
--- NOTE | 2021-02-24 10:40 | ERPHSYRPT ---
- History of Present Illness Time Seen by Provider: 02/24/21 10:05 Source: patient, family Exam Limitations: no limitations Patient Subjective Stated Complaint: Pt c/o of evelio lower leg pain and swelling and evelio hand pain and swelling Triage Nursing Assessment: Pt brought to the ER by a relative, hypertensive, rates pain in legs and hands as 7/10, hands and lower legs swollen, hx of gout, cardiac hx Physician History: This is an 85-year-old white female has a history of [id number] diabetes, hypertension, chronic anemia, congestive heart failure, coronary disease and gout. She is not on any antigout medication. Patient has been treated by her primary care physician, Dr. Barger, for a skin infection of her lower extremity. Recently, he changed the antibiotic that she was taking to Levaquin because of the sensitivity results that returned. Dr. Barger wrote for 7 days of this medication the patient took 1 dose and declined to take any more at this point. Patient is here today with complaints of bilateral hand pain and swelling. She feels it is a recurrence of her gout. She does have redness and swelling to her right fifth digit. She denies any hand injury. Patient does have a history of arthritis as well. That is the primary reason why she is here. She is not short of breath. She has no chest pain. Method of Injury: other (No injury) Severity of Pain-Max: moderate Severity of Pain-Current: moderate Extremities Pain Location: 5th finger: right Modifying Factors: Improves With: movement Associated Symptoms: No chest discomfort, No chest pain, No dyspnea, No short of breath Allergies/Adverse Reactions: No Known Drug Allergies Allergy (Verified 02/24/21 10:06) Home Medications: Metoprolol Tartrate 50 mg [Lopressor 50 MG] 50 mg PO BID 02/12/19 [History] Sitagliptin Phosphate [Januvia] 100 mg PO DAILY 02/12/19 [History] Furosemide 40 mg [Lasix 40 MG] 60 mg PO BID 10/08/19 [History] Hydralazine HCl 50 mg PO TID 10/08/19 [History] Levofloxacin [Levofloxacin 250MG Tablet] 250 mg PO DAILY 02/24/21 [History] Sodium Bicarbonate 650 mg PO DAILY 02/24/21 [History] metOLazone [Metolazone] 2.5 mg PO DAILY 02/24/21 [History] Hx Tetanus, Diphtheria Vaccination/Date Given: Yes Hx Influenza Vaccination/Date Given: Yes Hx Pneumococcal Vaccination/Date Given: No Travel Risk - International Travel Have you traveled outside of the country in past 3 weeks: No - Coronavirus Screening Are you exhibiting any of the following symptoms?: No Close contact with a COVID-19 positive Pt in past 14-21 Days: No - Vaccine Status Have you recieved a Covid-19 vaccination: No - Review of Systems Constitutional: No Symptoms, No Fever, No Weakness Eyes: No Symptoms Ears, Nose, & Throat: No Symptoms Respiratory: No Symptoms Cardiac: No Symptoms Abdominal/Gastrointestinal: No Symptoms Musculoskeletal: Joint Redness, Joint Pain, Joint Swelling (Right fifth digit.), Other (She does have generalized pain in bilateral hands and digits.) Skin: No Symptoms Neurological: No Symptoms Psychological: No Symptoms Endocrine: No Symptoms Hematologic/Lymphatic: No Symptoms Immunological/Allergic: No Symptoms All Other Systems: Reviewed and Negative - Past Medical History Pertinent Past Medical History: Yes Neurological History: No Pertinent History ENT History: No Pertinent History Cardiac History: Coronary Artery Disease, Hypertension, Myocardial Infarction ([place]) Respiratory History: CHF Endocrine Medical History: Diabetes Type II Musculoskeletal History: Osteoarthritis GI Medical History: Other History: No Pertinent History Psycho-Social History: No Pertinent History Female Reproductive Disorders: No Pertinent History Other Medical History: CARDIAC STENT 01/02; Enlarged liver, open heart surgery 12/08/18 - Past Surgical History Past Surgical History: Yes Neuro Surgical History: No Pertinent History Cardiac: Angioplasty, CABG, Cardiac Catheterization, Cardiac Stent Respiratory: No Pertinent History Gastrointestinal: No Pertinent History Genitourinary: No Pertinent History Musculoskeletal: Other Female Surgical History: Hysterectomy Other Surgical History: cardiac stent x three December. CABG x 4 vessels in -2018, wound care for bilateral legs within the last year - Social History Smoking Status: Never smoker Exposure to second hand smoke: No Drug Use: none Patient Lives Alone: Yes - Female History Hx Now: No - Nursing Vital Signs Nursing Vital Signs: Initial Vital Signs Temperature 98.2 F 02/24/21 09:55 Pulse Rate 65 02/24/21 09:55 Blood Pressure 146/71 02/24/21 09:55 O2 Sat by Pulse Oximetry 99 02/24/21 09:55 Pain Scale Pain Intensity 7 - Physical Exam General Appearance: no apparent distress, alert, anxiety Eyes, Ears, Nose, Throat Exam: normal ENT inspection, moist mucous membranes Neck Exam: normal inspection, non-tender, supple, full range of motion Cardiovascular/Respiratory Exam: chest non-tender, no respiratory distress Abdominal Exam: non-tender Back Exam: normal inspection, normal range of motion, No CVA tenderness, No vertebral tenderness Shoulder Exam: normal inspection, non-tender, no evidence of injury, normal ROM Elbow/Forearm Exam: normal inspection, non-tender, no evidence of injury, normal ROM Wrist Exam: normal inspection, non-tender, no evidence of injury, normal ROM Hand Exam: no evidence of injury, soft tissue tenderness (Bilateral hands and all digits of both hands. There is redness tenderness and swelling in the right fifth digit.), stiffness, swelling Neuro/Tendon Exam: normal sensation, normal motor functions, normal tendon functions, responds to pain Mental Status Exam: alert, oriented x 3, cooperative Skin Exam: other (Above) SpO2 Interpretation: normal SpO2: 99 O2 Delivery: Room Air - Course Nursing assessment & vital signs reviewed: Yes Ordered Tests: Active Orders 24 hr Category Date Time Status BMP Stat Lab 02/24/21 10:45 Completed MAGNESIUM Stat Lab 02/24/21 10:45 Completed Uric Acid Stat Lab 02/24/21 10:45 Completed Medication Summary Discontinued Medications Generic Name Dose Route Start Last Admin Trade Name Freq PRN Reason Stop Dose Admin Hydrocodone Bitart/Acetaminophen 1 tab 02/24/21 10:20 02/24/21 10:27 [place] 5/325 Mg PO 02/24/21 10:21 1 tab STAT ONE Administration Hydrocodone Bitart/Acetaminophen Confirm 02/24/21 10:25 [place] 5/325 Mg Administered 02/24/21 10:26 Dose 1 tab .ROUTE .STK-MED ONE Methylprednisolone Sodium Succinate 80 mg 02/24/21 10:20 02/24/21 10:27 Solu-Medrol 125 Mg IM 02/24/21 10:21 80 mg STAT ONE Administration Methylprednisolone Sodium Succinate Confirm 02/24/21 10:25 Solu-Medrol 125 Mg Administered 02/24/21 10:26 Dose 125 mg .ROUTE .STK-MED ONE Lab/Rad Data: Laboratory Result Diagrams 02/24/21 10:45 Laboratory Results 02/24/21 02/24/21 02/24/21 Range/Units 10:45 10:45 10:45 Sodium 134 L (137-145) mmol/L Potassium 3.1 L (3.5-5.1) mmol/L Chloride 93 L (98-107) mmol/L Carbon Dioxide 29 (22-30) mmol/L Anion Gap 14.7 (5-15) MEQ/L BUN 71 H (7-17) mg/dL Creatinine 1.67 H (0.52-1.04) mg/dL Estimated GFR 31.0 ML/MIN Glucose 180 H (74-106) mg/dL Uric Acid 13.9 H (2.6-6.0) mg/dL Calcium 9.2 (8.4-10.2) mg/dL Magnesium 2.3 (1.6-2.3) mg/dL - Progress Progress: improved, pain not gone completely, re-examined Counseled pt/family regarding: lab results, diagnosis, need for follow-up - Departure Departure Disposition: Home Clinical Impression: Acute gout, Hypokalemia Condition: Stable Critical Care Time: No Referrals: ALYSSA BARGER MD [Primary Care Provider] - Additional Instructions: Take your medication as prescribed, including the Levaquin prescription that Dr. Barger prescribed you. Call Dr. Barger's office on 02/26/2021 for further management. Return to the emergency department if symptoms worsen. Prescriptions: Hydrocodone/APAP 5/325 [[place] 5/325 mg] 1 each PO Q12H PRN PRN #6 tablet MDD 2 PRN Reason: Pain Prednisone 5 mg [Deltasone 5 mg] 5 mg PO TID #12 tablet
[2021-02-24 11:08] LABS: ANION GAP 14.7 MEQ/L (5-15); Calcium 9.2 mg/dL (8.4-10.2); Creatinine 1 1.67 mg/dL (0.52-1.04); Potassium 3.1 mmol/L (3.5-5.1)
[2021-02-24] MEDS ORDERED: Klor Con 10 MEQ PO ONE ×2 (11:24)
== END 2021-02-24 11:39 | disposition home or self-care (01) ==
LOC: ED 09:34
DX: M10.9 Gout, unspecified (principal); E87.6 Hypokalemia; M79.89 Other specified soft tissue disorders; M79.605 Pain in left leg; M79.604 Pain in right leg; I10 Essential (primary) hypertension; E11.9 Type 2 diabetes mellitus without complications; Z79.899 Other long term (current) drug therapy; I25.2 Old myocardial infarction; I25.810 Atherosclerosis of coronary artery bypass graft(s) without angina pectoris
CPT/HCPCS: 36415; 80048; 83735; 84550; 96372; 99284; J2930; A9270-GY

== ENCOUNTER 2021-03-02 09:21 | Emergency (ER) | payer MEDICARE ==
--- NOTE | 2021-03-02 10:55 | ERPHSYRPT ---
- History of Present Illness Time Seen by Provider: 03/02/21 09:39 Source: patient Exam Limitations: no limitations Patient Subjective Stated Complaint: " My leg is so swollen and I hurt so bad in my legs, knees, and left shoulder. I feel swollen all over and want to be ad mitted to the hospital". Triage Nursing Assessment: Pt presents to ER with complaints of left leg swelling, generalized all over weakness, pain in bilateral knees, and pain and swelling in left shoulder. Pt is worried about fluid retention. She is alert and oriented x 3. Skin is pink, warm, and dry. Denies shortness of breath and lungs are noted to be cleared throughout. Pt states she has had swelling on and off for a while now but the pain has became uncontrollable. She states she couldn't sleep all night last night due to pain and tried to manage pain with Tylenol but it didn't help. Wishes to stay in the hospital for a couple of days. Pt has some abdominal distenton noted but denies nausea or vomiting. Physician History: 85 years old female with history of CAD, congestive heart failure, CKD presented in the ER with chief complaint of left lower extremity pain and swelling and abdominal distention along with other joint aches and pains going on for quite some time and lately getting worse for the last few days. Patient reports mo derate intensity dull aching pain in the whole left leg, worsened with palpation and ambulation. She has chronic swelling in the left lower extremity which is worsening lately and does have a small wound on the leg which although is seems to be healing. Denies any fever or chills. Denies any fall or trauma to the leg. She feels swollen and bloated especially in her abdomen and related to symptoms similar to last time when she was at [facility] and had paracentesis done. Has some issue with the liver but does not recall exactly what she has. Denies any associated nausea or vomiting but has mild dull aching abdominal pain all over without any significant aggravating or relieving factors Timing/Duration: week(s), gradual onset, worse Severity: moderate Associated Symptoms: abdominal pain, No nausea, No vomiting, No shortness of breath, No cough, No chills, No chest pain, No headaches, No loss of appetite, No malaise, No weakness Allergies/Adverse Reactions: No Known Drug Allergies Allergy (Verified 03/02/21 10:03) Home Medications: Metoprolol Tartrate 50 mg [Lopressor 50 MG] 50 mg PO BID 02/12/19 [History] Sitagliptin Phosphate [Januvia] 100 mg PO DAILY 02/12/19 [History] Furosemide 40 mg [Lasix 40 MG] 40 mg PO DAILY 10/08/19 [History] Hydralazine HCl 50 mg PO BID 10/08/19 [History] Doxazosin Mesylate 1 mg PO DAILY 03/02/21 [History] Hx Tetanus, Diphtheria Vaccination/Date Given: Yes Hx Influenza Vaccination/Date Given: Yes Hx Pneumococcal Vaccination/Date Given: Yes Immunizations Up to Date: Yes Travel Risk - International Travel Have you traveled outside of the country in past 3 weeks: No - Coronavirus Screening Are you exhibiting any of the following symptoms?: No Close contact with a COVID-19 positive Pt in past 14-21 Days: No - Vaccine Status Have you recieved a Covid-19 vaccination: No - Review of Systems Constitutional: No Symptoms Eyes: No Symptoms Ears, Nose, & Throat: No Symptoms Respiratory: No Symptoms Cardiac: No Symptoms Abdominal/Gastrointestinal: Abdominal Pain Genitourinary Symptoms: No Symptoms Musculoskeletal: Arthralgias Skin: Skin Lesions Neurological: No Symptoms Psychological: No Symptoms Endocrine: No Symptoms Hematologic/Lymphatic: No Symptoms Immunological/Allergic: No Symptoms - Past Medical History Pertinent Past Medical History: Yes Neurological History: No Pertinent History ENT History: No Pertinent History Cardiac History: Coronary Artery Disease, Hypertension, Myocardial Infarction ([place]) Respiratory History: CHF Endocrine Medical History: Diabetes Type II Musculoskeletal History: Osteoarthritis GI Medical History: Other History: No Pertinent History Psycho-Social History: No Pertinent History Female Reproductive Disorders: No Pertinent History Other Medical History: CARDIAC STENT 01/02; Enlarged liver, open heart surgery - Past Surgical History Past Surgical History: Yes Neuro Surgical History: No Pertinent History Cardiac: Angioplasty, CABG, Cardiac Catheterization, Cardiac Stent Respiratory: No Pertinent History Gastrointestinal: No Pertinent History Genitourinary: No Pertinent History Musculoskeletal: Other Female Surgical History: Hysterectomy Other Surgical History: cardiac stent x three December. CABG x 4 vessels in -2018, wound care for bilateral legs within the last year - Social History Smoking Status: Never smoker Exposure to second hand smoke: No Drug Use: none Patient Lives Alone: Yes - Female History Hx Now: No - Nursing Vital Signs Nursing Vital Signs: Initial Vital Signs Temperature 98.1 F 03/02/21 09:58 Pulse Rate 75 03/02/21 09:58 Respiratory Rate 22 03/02/21 09:58 Blood Pressure 143/72 03/02/21 09:58 O2 Sat by Pulse Oximetry 100 03/02/21 09:58 Pain Scale Pain Intensity 10 - Physical Exam General Appearance: no apparent distress, alert, anxiety Eye Exam: PERRL/EOMI, eyes nml inspection Ears, Nose, Throat Exam: normal ENT inspection, TMs normal, pharynx normal Neck Exam: normal inspection, non-tender, supple, full range of motion Respiratory Exam: normal breath sounds, lungs clear, No chest tenderness Cardiovascular Exam: regular rate/rhythm, normal heart sounds Gastrointestinal/Abdomen Exam: soft, normal bowel sounds, tenderness (Minimal generalized), distention Back Exam: normal inspection, normal range of motion Extremity Exam: swelling (Left lower extremity. Small healing wound on the medial upper. No erythema around. Generalized tenderness.) Neurologic Exam: alert, oriented x 3, cooperative, coat checker II-XII nml as tested Skin Exam: normal color SpO2 Interpretation: normal SpO2: 99 O2 Delivery: Room Air Ordered Tests: Active Orders 24 hr Category Date Time Status IV Insertion STAT Care 03/02/21 10:30 Active ABDOMEN AND PELVIS W/0 CONTRAS [CT] Stat Exams 03/02/21 10:31 Completed VENOUS UNILAT/LIMITED EXTREMIT [US] Stat Exams 03/02/21 11:16 Completed CBC W DIFF Stat Lab 03/02/21 10:30 Results CMP Stat Lab 03/02/21 10:30 Completed LIPASE Stat Lab 03/02/21 10:30 Completed Manual Differential NC Stat Lab 03/02/21 10:30 Results PROTIME WITH INR Stat Lab 03/02/21 11:44 Completed Pathologist Review Stat Lab 03/02/21 10:30 Results UA W/RFX UR CULTURE Stat Lab 03/02/21 11:02 Completed Medication Summary Discontinued Medications Generic Name Dose Route Start Last Admin Trade Name Freq PRN Reason Stop Dose Admin Acetaminophen 975 mg 03/02/21 10:30 03/02/21 11:13 Tylenol 325 Mg PO 03/02/21 10:31 975 mg STAT ONE Administration Acetaminophen Confirm 03/02/21 11:11 Tylenol 325 Mg Administered 03/02/21 11:12 Dose 975 mg .ROUTE .STK-MED ONE Lab/Rad Data: Laboratory Result Diagrams 03/02/21 10:30 03/02/21 10:30 Laboratory Results 03/02/21 03/02/21 03/02/21 Range/Units 11:44 11:02 10:30 WBC (4.0-10.5) K/mm3 RBC (4.1-5.4) M/mm3 Hgb (12.0-16.0) gm/dl Hct (35-47) % MCV (78-100) fl MCH (26-32) pg MCHC (32-36) g/dl RDW (11.5-14.0) % Plt Count (150-450) K/mm3 MPV (7.5-11.0) fl Absolute Granulocytes (1.4-6.9) Segmented Neutrophils (36.0-66.0) % Band Neutrophils (0.0-2.0) % Lymphocytes (Manual) (24-44) % Monocytes (Manual) (0.0-12.0) % Basophils (Manual) (0.0-1.0) % Metamyelocytes % Myelocytes % Platelet Estimate (NORMAL) RBC Morphology Polychromasia Poikilocytosis Anisocytosis Smear Path Review PT 15.8 H (9.4-12.5) SECONDS INR 1.34 (0.8-3.0) Sodium 134 L (137-145) mmol/L Potassium 3.3 L (3.5-5.1) mmol/L Chloride 92 L (98-107) mmol/L Carbon Dioxide 30 (22-30) mmol/L Anion Gap 15.0 (5-15) MEQ/L BUN 63 H (7-17) mg/dL Creatinine 1.58 H (0.52-1.04) mg/dL Estimated GFR 33.0 ML/MIN Glucose 166 H (74-106) mg/dL Calcium 9.0 (8.4-10.2) mg/dL Total Bilirubin 0.40 (0.2-1.3) mg/dL AST 24 (14-36) U/L ALT 16 (0-35) U/L Alkaline Phosphatase 80 (38-126) U/L Serum Total Protein 6.4 (6.3-8.2) g/dL Albumin 4.0 (3.5-5.0) g/dL Lipase 162 (23-300) U/L Urine Color YELLOW (YELLOW) Urine Appearance CLEAR (CLEAR) Urine pH 6.0 (5-6) Ur Specific [place] 1.010 (1.005-1.025) Urine Protein NEGATIVE (Negative) Urine Ketones NEGATIVE (NEGATIVE) Urine Blood NEGATIVE (0-5) Jose/ul Urine Nitrite NEGATIVE (NEGATIVE) Urine Bilirubin NEGATIVE (NEGATIVE) Urine Urobilinogen NEGATIVE (0-1) mg/dL Ur Leukocyte Esterase TRACE (NEGATIVE) Urine WBC (Auto) 3-5 (0-5) /HPF Urine RBC (Auto) 0-2 (0-2) /HPF U Epithel Cells (Auto) NONE (FEW) /HPF Urine Bacteria (Auto) RARE (NEGATIVE) /HPF Urine Culture Reflexed NO (NO) Urine Glucose NEGATIVE (NEGATIVE) mg/dL 03/02/21 Range/Units 10:30 WBC 9.1 (4.0-10.5) K/mm3 RBC 2.65 L (4.1-5.4) M/mm3 Hgb 8.2 L (12.0-16.0) gm/dl Hct 25.4 L (35-47) % MCV 95.8 (78-100) fl MCH 30.9 (26-32) pg MCHC 32.3 (32-36) g/dl RDW 18.8 H (11.5-14.0) % Plt Count 386 (150-450) K/mm3 MPV 9.3 (7.5-11.0) fl Absolute Granulocytes 6.45 (1.4-6.9) Segmented Neutrophils 63 (36.0-66.0) % Band Neutrophils 8 H (0.0-2.0) % Lymphocytes (Manual) 9 L (24-44) % Monocytes (Manual) 9 (0.0-12.0) % Basophils (Manual) 2 H (0.0-1.0) % Metamyelocytes 6 % Myelocytes 3 % Platelet Estimate NORMAL (NORMAL) RBC Morphology ABNORMAL Polychromasia 1+ Poikilocytosis 1+ Anisocytosis 2+ Smear Path Review Pending PT (9.4-12.5) SECONDS INR (0.8-3.0) Sodium (137-145) mmol/L Potassium (3.5-5.1) mmol/L Chloride (98-107) mmol/L Carbon Dioxide (22-30) mmol/L Anion Gap (5-15) MEQ/L BUN (7-17) mg/dL Creatinine (0.52-1.04) mg/dL Estimated GFR ML/MIN Glucose (74-106) mg/dL Calcium (8.4-10.2) mg/dL Total Bilirubin (0.2-1.3) mg/dL AST (14-36) U/L ALT (0-35) U/L Alkaline Phosphatase (38-126) U/L Serum Total Protein (6.3-8.2) g/dL Albumin (3.5-5.0) g/dL Lipase (23-300) U/L Urine Color (YELLOW) Urine Appearance (CLEAR) Urine pH (5-6) Ur Specific [place] (1.005-1.025) Urine Protein (Negative) Urine Ketones (NEGATIVE) Urine Blood (0-5) Jose/ul Urine Nitrite (NEGATIVE) Urine Bilirubin (NEGATIVE) Urine Urobilinogen (0-1) mg/dL Ur Leukocyte Esterase (NEGATIVE) Urine WBC (Auto) (0-5) /HPF Urine RBC (Auto) (0-2) /HPF U Epithel Cells (Auto) (FEW) /HPF Urine Bacteria (Auto) (NEGATIVE) /HPF Urine Culture Reflexed (NO) Urine Glucose (NEGATIVE) mg/dL - Progress Progress: improved, pain not gone completely, re-examined Progress Note: 03/02/21 13:08 85 years old is evaluated for multiple complaints including abdominal distention, left leg pain and other joint aches and pains. She is offered pain medication which she refused but Tylenol. On reevaluation feeling better. Ruled out DVT. No signs of cellulitis. Normal white count. Stable H&H. Renal function stable. I have obtained CT abdomen pelvis which is negative for any acute findings. She does not have any big ascites. Recommended symptomatic treatment with pain medication and outpatient follow-up. Discussed signs symptoms of worsening needing return to ER which she seems understanding. Counseled pt/family regarding: lab results, diagnosis, need for follow-up, rad results - Departure Departure Disposition: Home Clinical Impression: Leg pain, left, Abdominal distention Condition: Stable Critical Care Time: No Referrals: ALYSSA BARGER MD [Primary Care Provider] - Follow Up with PCP/3 days Instructions: Acute Abdomen (Belly Pain), Adult (DC) Additional Instructions: Take half of pain medication pill as needed. Use walker/cane for ambulation all the time while taking pain medicines. Follow-up with primary care and nephrology for reevaluation. Return to ER for worsening pain, abdominal distention, fever chills etc. Prescriptions: Hydrocodone/APAP 5/325 [[place] 5/325 mg] 1 each PO Q8H PRN PRN 10 Days #6 tablet MDD 2 PRN Reason: Pain
[2021-03-02] MEDS ORDERED: TYLENOL 325 MG ONE (11:11)
[2021-03-02 11:12] LABS: Appearance CLEAR (CLEAR); Bacteria RARE /HPF (NEGATIVE); Bilirubin NEGATIVE (NEGATIVE); Blood NEGATIVE Ery/ul (0-5); Glucose NEGATIVE (NEGATIVE); Ketones NEGATIVE (NEGATIVE); Leukocyte Esterase TRACE (NEGATIVE); Nitrite NEGATIVE (NEGATIVE); Protein,Urine Dip NEGATIVE (Negative); RBC 0-2 /HPF (0-2); Urobilinogen NEGATIVE mg/dL (0-1)
[2021-03-02] MEDS: TYLENOL 325 MG PO ONE (11:13)
[2021-03-02 11:51] LABS: Hematocrit 25.4 % (35-47); Hemoglobin 8.2 gm/dl (12.0-16.0); Mean Cell Volume 95.8 fl (78-100); Mean Corpuscular Hemoglobin 30.9 pg (26-32); Mean Corpuscular Hgb Concent. 32.3 g/dl (32-36); Mean Platelet Volume 9.3 fl (7.5-11.0); Platelet Count 386 K/mm3 (150-450); Red Blood Count 2.65 M/mm3 (4.1-5.4); Red Cell Distribution Width 18.8 % (11.5-14.0); White Blood Count 9.1 K/mm3 (4.0-10.5)
[2021-03-02 11:59] LABS: INR 1.34 (0.8-3.0); PROTIME 15.8 SECONDS (9.4-12.5)
[2021-03-02 12:02] LABS: BILIRUBIN,TOTAL 0.4 mg/dL (0.2-1.3); Creatinine 1 1.58 mg/dL (0.52-1.04); Potassium 3.3 mmol/L (3.5-5.1); Total Protein 6.4 g/dL (6.3-8.2)
--- NOTE | 2021-03-02 12:17 | XRAY ---
Indication: Abdominal pain. Ascites. Multiple contiguous axial images obtained through the abdomen and pelvis without contrast. Comparison: February 09, 2020. Lung bases again demonstrate scattered atelectasis/scarring. Tiny right effusion/atelectasis less than before. Heart remains enlarged again with coronary calcifications and mitral valve replacement. Noncontrasted stomach and bowel loops nonobstructed again with scattered colonic diverticulosis. No free fluid/air. Stable distended gallbladder with multiple stones, 24 cm hepatomegaly with multiple cysts, 13 cm splenomegaly, bilateral renal cysts, and hepatic/splenic calcified granulomas. Remaining pancreas, adrenal glands, ureters, and bladder are unremarkable for noncontrast exam. Stable heavy scattered vascular calcifications without AAA. Osseous structures intact again with osteopenia and mild/moderate degenerative changes throughout the spine and small right superior acetabulum bone island. Impression: 1. Tiny right effusion/atelectasis with stable cardiomegaly and mitral valve replacement surgery. 2. Stable distended gallbladder with multiple stones, hepatomegaly with multiple cysts, splenomegaly, bilateral renal cysts, colonic diverticulosis, chronic bony findings, and old granulomatous disease. 3. Remaining CT abdomen/pelvis without contrast exam is negative.
--- NOTE | 2021-03-02 12:23 | XRAY ---
Indication: Left leg pain and swelling. Open sore. Two-dimensional sonogram and color Doppler imaging of the major venous vessels of the left leg performed. Comparison: November 15, 2020. Field Support Rep notes limited exam due to patient unable to tolerate compression. No obvious thrombus seen in the deep venous vessels of the left leg including greater saphenous vein. Veins demonstrate normal compressibility. Venous waveforms are normal with and without augmentation. Impression: Left leg continues to remain negative for DVT.
[2021-03-02 12:31] LABS: BAND 8 % (0.0-2.0); Basophil 2 % (0.0-1.0); Lymphocytes 9 % (24-44); Metamyelocyte 6 %; Monocyte 9 % (0.0-12.0); Myelocyte 3 %; Neutrophils 63 % (36.0-66.0); Platelet Estimate NORMAL (NORMAL); Total Cells Counted 100
[2021-03-02 12:32] LABS: ANISOCYTOSIS 2+; Poikilocytosis 1+; Polychromasia 1+
[2021-03-02 12:33] LABS: Absolute Neutrophil Ct (ANC) 6.45 (1.4-6.9)
[2021-03-02 13:15] VITALS: BP 161/95; PULSE 77; O2SAT 99
== END 2021-03-02 13:39 | disposition home or self-care (01) ==
LOC: ED 09:21
DX: M79.662 Pain in left lower leg (principal); R60.9 Edema, unspecified; Z79.899 Other long term (current) drug therapy; I10 Essential (primary) hypertension; E11.9 Type 2 diabetes mellitus without complications; I50.9 Heart failure, unspecified; I25.810 Atherosclerosis of coronary artery bypass graft(s) without angina pectoris
CPT/HCPCS: 36000; 36415; 74176; 80053; 81001; 83690; 85025; 85610; 93971; 99284; A9270-GY

== ENCOUNTER 2021-03-11 10:28 | Observation (INO) | payer MEDICARE ==
[2021-03-11] MEDS ORDERED: SUBLIMAZE 100 MCG/2 ML IV ONE (10:41)
[2021-03-11] MEDS ORDERED: Sodium Chloride 0.9% 1000 ML 1,000 ML ONE (10:45)
[2021-03-11] MEDS ORDERED: Sodium Chloride 0.9% 1000 ML 1,000 ML IV SCH ×4 (10:45→22:00)
[2021-03-11] MEDS ORDERED: SUBLIMAZE 100 MCG/2 ML ONE (10:45)
[2021-03-11] MEDS ORDERED: solu-MEDROL 125 MG IV ONE (10:49)
[2021-03-11] MEDS ORDERED: solu-MEDROL 125 MG ONE (10:57)
[2021-03-11 11:17] LABS: Hematocrit 26.1 % (35-47); Hemoglobin 8.6 gm/dl (12.0-16.0); Mean Cell Volume 94.6 fl (78-100); Mean Corpuscular Hemoglobin 31.2 pg (26-32); Mean Platelet Volume 9.3 fl (7.5-11.0); Platelet Count 367 K/mm3 (150-450); Red Blood Count 2.76 M/mm3 (4.1-5.4); Red Cell Distribution Width 19.2 % (11.5-14.0); White Blood Count 9.1 K/mm3 (4.0-10.5)
[2021-03-11 11:28] LABS: ANION GAP 15.1 MEQ/L (5-15); BILIRUBIN,TOTAL 0.3 mg/dL (0.2-1.3); Creatinine 1 2.18 mg/dL (0.52-1.04); EST GLOMERULAR FILTRATION RATE 22.8 ML/MIN; Total Protein 6.6 g/dL (6.3-8.2); Uric Acid 15.7 mg/dL (2.6-6.0)
[2021-03-11 11:42] LABS: Potassium 2.7 mmol/L (3.5-5.1)
[2021-03-11] MEDS ORDERED: K-LYTE 25 MEQ PO ONE ×3 (11:43→22:00)
[2021-03-11] MEDS ORDERED: K-LYTE 25 MEQ ONE (11:45)
[2021-03-11 11:54] LABS: Erythrocyte Sedimentation Rate 72 mm/hr (0-20)
--- NOTE | 2021-03-11 13:15 | ERPHSYRPT ---
- History of Present Illness Time Seen by Provider: 03/11/21 10:45 Source: patient Exam Limitations: no limitations Patient Subjective Stated Complaint: R knee/leg pain Triage Nursing Assessment: pt to ED c/o R leg pain, mostly in R knee, r/t RA pa ins. R knee is warm and swollen, very tender to touch. rates 10/10 pain and much worse with ambulation. Physician History: Patient is an 85-year-old female who presents with a complaint of pain in the right knee for several days she complains of heat swelling and inability to bear weight. She also complains of swelling and pain in the right index finger. Review of her records indicates she does have rheumatoid arthritis but she also has episodes of gout. Patient says she has been sick for several days laying in bed at home her highway engineering teacher brought her into the ER. She has not been able to take her medicines. Timing/Duration: day(s) (4), worse Severity: severe Modifying Factors: Improves With: movement Associated Symptoms: denies symptoms Allergies/Adverse Reactions: No Known Drug Allergies Allergy (Verified 03/11/21 10:40) Home Medications: Metoprolol Tartrate 50 mg [Lopressor 50 MG] 50 mg PO BID 02/12/19 [History] Sitagliptin Phosphate [Januvia] 100 mg PO DAILY 02/12/19 [History] Furosemide 40 mg [Lasix 40 MG] 40 mg PO DAILY 10/08/19 [History] Hydralazine HCl 50 mg PO BID 10/08/19 [History] Doxazosin Mesylate 1 mg PO DAILY 03/02/21 [History] Hx Tetanus, Diphtheria Vaccination/Date Given: Yes Hx Influenza Vaccination/Date Given: Yes Hx Pneumococcal Vaccination/Date Given: No Immunizations Up to Date: Yes Travel Risk - International Travel Have you traveled outside of the country in past 3 weeks: No - Coronavirus Screening Are you exhibiting any of the following symptoms?: No Close contact with a COVID-19 positive Pt in past 14-21 Days: No - Vaccine Status Have you recieved a Covid-19 vaccination: No - Review of Systems Constitutional: No Fever, No Chills Eyes: No Symptoms Ears, Nose, & Throat: No Symptoms Respiratory: No Cough, No Dyspnea Cardiac: No Chest Pain, No Edema, No Syncope Abdominal/Gastrointestinal: No Abdominal Pain, No Nausea, No Vomiting, No Diarrhea Genitourinary Symptoms: No Dysuria Musculoskeletal: Arthralgias, Joint Redness, Joint Pain, Joint Swelling, No Back Pain, No Neck Pain Skin: No Rash Neurological: No Dizziness, No Focal Weakness, No Sensory Changes Psychological: No Symptoms Endocrine: No Symptoms All Other Systems: Reviewed and Negative - Past Medical History Pertinent Past Medical History: Yes Neurological History: No Pertinent History ENT History: No Pertinent History Cardiac History: Coronary Artery Disease, Hypertension, Myocardial Infarction ([place]) Respiratory History: CHF Endocrine Medical History: Diabetes Type II Musculoskeletal History: Osteoarthritis GI Medical History: Other History: No Pertinent History Psycho-Social History: No Pertinent History Female Reproductive Disorders: No Pertinent History Other Medical History: CARDIAC STENT 01/02; Enlarged liver, open heart surgery 12/08/18 - Past Surgical History Past Surgical History: Yes Neuro Surgical History: No Pertinent History Cardiac: Angioplasty, CABG, Cardiac Catheterization, Cardiac Stent Respiratory: No Pertinent History Gastrointestinal: No Pertinent History Genitourinary: No Pertinent History Musculoskeletal: Other Female Surgical History: Hysterectomy Other Surgical History: cardiac stent x three December. CABG x 4 vessels in -2018, wound care for bilateral legs within the last year - Social History Smoking Status: Never smoker Exposure to second hand smoke: No Drug Use: none Patient Lives Alone: Yes - Nursing Vital Signs Nursing Vital Signs: Initial Vital Signs Temperature 97.7 F 03/11/21 10:33 Pulse Rate 72 03/11/21 10:33 Respiratory Rate 20 03/11/21 10:33 Blood Pressure 146/96 03/11/21 10:33 O2 Sat by Pulse Oximetry 98 03/11/21 10:33 Pain Scale Pain Intensity 9 - Physical Exam General Appearance: moderate distress, alert Eye Exam: PERRL/EOMI, eyes nml inspection Ears, Nose, Throat Exam: normal ENT inspection, TMs normal, pharynx normal, moist mucous membranes Neck Exam: normal inspection, non-tender, supple, full range of motion Respiratory Exam: normal breath sounds, lungs clear, No respiratory distress Cardiovascular Exam: regular rate/rhythm, normal heart sounds, normal peripheral pulses Gastrointestinal/Abdomen Exam: soft, normal bowel sounds, No tenderness, No mass Back Exam: normal inspection, normal range of motion, No CVA tenderness, No vertebral tenderness Extremity Exam: inflammation, joint swelling, limited range of motion, swelling, tenderness (To show the right knee to be swollen hot to the touch limited range of motion and tenderness. Same is true for the right index finger.) Neurologic Exam: alert, oriented x 3, cooperative, normal mood/affect, nml cerebellar function, nml station & gait, sensation nml, No motor deficits Skin Exam: normal color, warm, dry, No rash Lymphatic Exam: No adenopathy SpO2: 99 - Course Nursing assessment & vital signs reviewed: Yes - Radiology Exams Knee X-ray Interpretation: Interpreted by me, Other (Radiographs of the right knee and the right hand show marked degenerative changes bone loss osteoporosis joint destruction etc.) Ordered Tests: Active Orders 24 hr Category Date Time Status HAND (MINIMUM 3 VIEWS) Stat Exams 03/11/21 11:08 Taken KNEE (1 OR 2 VIEW) Stat Exams 03/11/21 10:37 Taken CBC W DIFF Stat Lab 03/11/21 11:03 Completed CMP Stat Lab 03/11/21 11:03 Completed Erythrocyte Sedimentation Rate Stat Lab 03/11/21 11:03 Completed Lactic Acid Stat Lab 03/11/21 10:45 Completed Lactic Acid Stat Lab 03/11/21 12:53 Received Manual Differential NC Stat Lab 03/11/21 11:03 Completed RA FACTOR [RHEUMATOID FACTOR] Stat Lab 03/11/21 11:03 Completed Uric Acid Stat Lab 03/11/21 11:03 Completed Medication Summary Generic Name Dose Route Start Last Admin Trade Name Freq PRN Reason Stop Dose Admin Sodium Chloride 1,000 mls @ 100 mls/hr 03/11/21 10:45 03/11/21 10:57 Sodium Chloride 0.9% 1000 Ml IV 04/10/21 10:44 100 mls/hr .Q10H SMITHA Administration Discontinued Medications Generic Name Dose Route Start Last Admin Trade Name Freq PRN Reason Stop Dose Admin Fentanyl Citrate 50 mcg 03/11/21 10:41 03/11/21 10:56 Sublimaze 100 Mcg/2 Ml IV 03/11/21 10:42 50 mcg STAT ONE Administration Fentanyl Citrate Confirm 03/11/21 10:45 Sublimaze 100 Mcg/2 Ml Administered 03/11/21 10:46 Dose 100 mcg .ROUTE .STK-MED ONE Methylprednisolone Sodium Succinate 125 mg 03/11/21 10:49 03/11/21 10:58 Solu-Medrol 125 Mg IV 03/11/21 10:50 125 mg STAT ONE Administration Methylprednisolone Sodium Succinate Confirm 03/11/21 10:57 Solu-Medrol 125 Mg Administered 03/11/21 10:58 Dose 125 mg .ROUTE .STK-MED ONE Potassium Bicarbonate 50 meq 03/11/21 11:43 03/11/21 11:51 K-Lyte 25 Meq PO 03/11/21 11:44 50 meq STAT ONE Administration Potassium Bicarbonate Confirm 03/11/21 11:45 K-Lyte 25 Meq Administered 03/11/21 11:46 Dose 50 meq .ROUTE .STK-MED ONE Lab/Rad Data: Laboratory Result Diagrams 03/11/21 11:03 03/11/21 11:03 Laboratory Results 03/11/21 03/11/21 03/11/21 Range/Units 12:53 11:03 11:03 WBC (4.0-10.5) K/mm3 RBC (4.1-5.4) M/mm3 Hgb (12.0-16.0) gm/dl Hct (35-47) % MCV (78-100) fl MCH (26-32) pg MCHC (32-36) g/dl RDW (11.5-14.0) % Plt Count (150-450) K/mm3 MPV (7.5-11.0) fl ESR (0-20) mm/hr Sodium 133 L (137-145) mmol/L Potassium 2.7 L* (3.5-5.1) mmol/L Chloride 89 L (98-107) mmol/L Carbon Dioxide 31 H (22-30) mmol/L Anion Gap 15.1 H (5-15) MEQ/L BUN 66 H (7-17) mg/dL Creatinine 2.18 H (0.52-1.04) mg/dL Estimated GFR 22.8 ML/MIN Glucose 217 H (74-106) mg/dL Lactic Acid 1.3 (0.4-2.0) Uric Acid 15.7 H (2.6-6.0) mg/dL Calcium 9.0 (8.4-10.2) mg/dL Total Bilirubin 0.30 (0.2-1.3) mg/dL AST 23 (14-36) U/L ALT 15 (0-35) U/L Alkaline Phosphatase 78 (38-126) U/L Serum Total Protein 6.6 (6.3-8.2) g/dL Albumin 4.0 (3.5-5.0) g/dL Rheumatoid Factor Scrn POSITIVE (Negative) 03/11/21 03/11/21 Range/Units 11:03 10:45 WBC 9.1 (4.0-10.5) K/mm3 RBC 2.76 L (4.1-5.4) M/mm3 Hgb 8.6 L (12.0-16.0) gm/dl Hct 26.1 L (35-47) % MCV 94.6 (78-100) fl MCH 31.2 (26-32) pg MCHC 33.0 (32-36) g/dl RDW 19.2 H (11.5-14.0) % Plt Count 367 (150-450) K/mm3 MPV 9.3 (7.5-11.0) fl ESR 72 H (0-20) mm/hr Sodium (137-145) mmol/L Potassium (3.5-5.1) mmol/L Chloride (98-107) mmol/L Carbon Dioxide (22-30) mmol/L Anion Gap (5-15) MEQ/L BUN (7-17) mg/dL Creatinine (0.52-1.04) mg/dL Estimated GFR ML/MIN Glucose (74-106) mg/dL Lactic Acid 2.4 H (0.4-2.0) Uric Acid (2.6-6.0) mg/dL Calcium (8.4-10.2) mg/dL Total Bilirubin (0.2-1.3) mg/dL AST (14-36) U/L ALT (0-35) U/L Alkaline Phosphatase (38-126) U/L Serum Total Protein (6.3-8.2) g/dL Albumin (3.5-5.0) g/dL Rheumatoid Factor Scrn (Negative) - Progress Discussed with : David - Departure Departure Disposition: Observation Clinical Impression: Hypokalemia, Acute gout Condition: Fair Critical Care Time: No Referrals: ALYSSA BARGER MD [Primary Care Provider] -
[2021-03-11] MEDS ORDERED: solu-MEDROL 125 MG IV SCH (13:30)
[2021-03-11 14:31] LABS: BAND 4 % (0.0-2.0); Basophil 1 % (0.0-1.0); Lymphocytes 12 % (24-44); Monocyte 8 % (0.0-12.0); Neutrophils 75 % (36.0-66.0); Nucleated Red Blood Cell 1 %; Total Cells Counted 100
[2021-03-11 14:32] LABS: ANISOCYTOSIS 1+; Basophilic Stippling 1+; Platelet Estimate NORMAL (NORMAL); Poikilocytosis 1+; Polychromasia 1+
[2021-03-11] MEDS: Apresoline 25 MG TABLET PO SCH ×2 (16:39→21:44)
[2021-03-11] MEDS: SUBLIMAZE 100 MCG/2 ML IV PRN (16:40)
--- NOTE | 2021-03-11 17:41 | XRAY ---
Indication: Joint pain swelling. No known injury. Comparison: None AP/lateral right knee demonstrates osteopenia, mild/moderate tricompartmental degenerative changes, tiny nonspecific effusion, chunky posterior heterotopic ossifications, and extensive vascular calcifications. No other bony, articular, or soft tissue abnormalities.
--- NOTE | 2021-03-11 17:41 | XRAY ---
Indication: Joint pain. No known injury. Comparison: None 3 view right hand demonstrates osteopenia, moderate/advanced degenerative changes all IP joints with tiny heterotopic ossifications, mild degenerative changes all MCP joints, moderate/advanced degenerative changes 1st metacarpal multangular scaphoid articulation, ulnar carpal degenerative chondrocalcinosis, and scattered vascular calcifications. No other bony, articular, or soft tissue abnormalities. Impression: Nonacute hand with chronic features.
[2021-03-11] MEDS: HUMALOG SQ PRN ×2 (18:57→21:43)
[2021-03-11] MEDS: solu-MEDROL 125 MG IV SCH (21:43)
[2021-03-11] MEDS: Lopressor 50 MG PO SCH (21:44)
[2021-03-11] MEDS: ZYVOX PO SCH (21:44)
[2021-03-11] MEDS ORDERED: NON-FORMULARY ITEM (Hydralazine Hcl [Hydralazine Hcl] 50 MG) PO SCH (22:00)
[2021-03-12] MEDS: SUBLIMAZE 100 MCG/2 ML IV PRN ×2 (00:13→04:21)
[2021-03-12 08:11] LABS: Hematocrit 24.5 % (35-47); Hemoglobin 7.9 gm/dl (12.0-16.0); Mean Cell Volume 96.1 fl (78-100); Mean Corpuscular Hgb Concent. 32.2 g/dl (32-36); Mean Platelet Volume 9.2 fl (7.5-11.0); Platelet Count 312 K/mm3 (150-450); Red Blood Count 2.55 M/mm3 (4.1-5.4); Red Cell Distribution Width 18.7 % (11.5-14.0); White Blood Count 10.7 K/mm3 (4.0-10.5)
[2021-03-12 08:24] LABS: ALBUMIN 3.5 g/dL (3.5-5.0); ANION GAP 12.7 MEQ/L (5-15); BILIRUBIN,TOTAL 0.3 mg/dL (0.2-1.3); Calcium 8.6 mg/dL (8.4-10.2); Creatinine 1 1.71 mg/dL (0.52-1.04); EST GLOMERULAR FILTRATION RATE 30.2 ML/MIN; Potassium 3.7 mmol/L (3.5-5.1); Total Protein 5.9 g/dL (6.3-8.2)
--- NOTE | 2021-03-12 08:25 | PCM.SSS ---
History of Present Illness - Chief Complaint Chief Complaint: acute gout History of Present Illness: is a 85 year old female with multiple medical problems who presented with acute joint pain, she was found to have acute gout flare with hx of RA and hypokalemia, she is on lasix and metolazone currently but no potassium, she is very uncertain about her meds and didn't take any for a couple of days prior to arrival because she felt poorly. compliance is a typical struggle, she does have a wound to her lower extremity treated by Dr Prosper LAW. - Review of Systems Constitutional: No Fever, No Chills Respiratory: No Cough, No Short Of Breath Cardiac: No Chest Pain, No Edema, No Syncope Abdominal/Gastrointestinal: No Abdominal Pain, No Nausea, No Vomiting, No Diarrh ea Musculoskeletal: Arthralgias, No Injury, No Joint Redness All Other Systems: Reviewed and Negative Medications & Allergies Home Medications: Home Medication List Metoprolol Tartrate 50 mg [Lopressor 50 MG] 50 mg PO BID 02/12/19 [History Confirmed 03/11/21] Sitagliptin Phosphate [Januvia] 100 mg PO DAILY 02/12/19 [History Confirmed 03/11/21] Furosemide 40 mg [Lasix 40 MG] 60 mg PO BID 10/08/19 [History Confirmed 03/11/21] Hydralazine HCl 50 mg PO TID 10/08/19 [History Confirmed 03/11/21] Linezolid [Zyvox] 600 mg PO BID 03/11/21 [History Confirmed 03/11/21] Sodium Bicarbonate 650 mg PO DAILY 03/11/21 [History Confirmed 03/11/21] metOLazone [Metolazone] 2.5 mg PO DAILY 03/11/21 [History Confirmed 03/11/21] Methylprednisolone Packet [Medrol Dosepack] 4 mg PO UD #21 packet 03/12/21 [Rx] Potassium Chloride [Klor-Con M20] 20 meq PO DAILY #30 tab.er.prt 03/12/21 [Rx] Allergies/Adverse Reactions: Allergies Allergy/AdvReac Type Severity Reaction Status Date / Time No Known Drug Allergies Allergy Verified 03/11/21 10:40 - Past Medical History Past Medical History: Yes Neurological History: No Pertinent History ENT History: No Pertinent History Cardiac History: Coronary Artery Disease, Hypertension, Myocardial Infarction ([place]) Respiratory History: CHF Endocrine Medical History: Diabetes Type II Musculoskelatal History: Osteoarthritis GI Medical History: Other History: No Pertinent History Pyscho-Social History: No Pertinent History Reproductive Disorders: No Pertinent History Comment: CARDIAC STENT 01/02; Enlarged liver, open heart surgery 12/08/18 - Female History Are you now?: No - Past Surgical History Past Surgical History: Yes Neuro Surgical History: No Pertinent History Cardiac History: Angioplasty, CABG, Cardiac Catheterization, Cardiac Stent Respiratory Surgery: No Pertinent History GI Surgical History: No Pertinent History Genitourinary Surgical Hx: No Pertinent History Musculskeletal Surgical Hx: Other Female Surgical History: Hysterectomy Other Surgical History: cardiac stent x three December. CABG x 4 vessels in -2018, wound care for bilateral legs within the last year - Social History Smoking Status: Never smoker Exposure to second hand smoke: No Alcohol: None Drug Use: none - Physical Exam Vital Signs: Vital Signs - 24 hr Temp Pulse Resp BP Pulse Ox 03/12/21 07:52 98.1 F 68 16 148/67 97 03/12/21 04:00 98.0 F 79 18 138/75 96 03/11/21 23:27 98.0 F 79 16 122/58 95 03/11/21 20:00 97.9 F 73 18 138/69 96 03/11/21 14:44 77 136/77 95 03/11/21 13:17 99 03/11/21 13:02 69 18 136/72 99 03/11/21 11:48 55 L 18 130/63 97 03/11/21 10:33 97.7 F 72 20 146/96 98 General Appearance: no apparent distress Neurologic Exam: alert, oriented x 3 Respiratory Exam: normal breath sounds, lungs clear, No respiratory distress Cardiovascular Exam: regular rate/rhythm, normal heart sounds, normal peripheral pulses Gastrointestinal/Abdomen Exam: soft, normal bowel sounds, No tenderness, No mass Extremity Exam: No pedal edema, No swelling Skin Exam: normal color, warm, dry, No rash Results - Labs Lab/Micro Results: Lab Results-Last 24 Hours 03/11/21 03/11/21 03/11/21 Range/Units 10:45 11:03 11:03 WBC 9.1 (4.0-10.5) K/mm3 RBC 2.76 L (4.1-5.4) M/mm3 Hgb 8.6 L (12.0-16.0) gm/dl Hct 26.1 L (35-47) % MCV 94.6 (78-100) fl MCH 31.2 (26-32) pg MCHC 33.0 (32-36) g/dl RDW 19.2 H (11.5-14.0) % Plt Count 367 (150-450) K/mm3 MPV 9.3 (7.5-11.0) fl Segmented Neutrophils 75 H (36.0-66.0) % Band Neutrophils 4 H (0.0-2.0) % Lymphocytes (Manual) 12 L (24-44) % Monocytes (Manual) 8 (0.0-12.0) % Basophils (Manual) 1 (0.0-1.0) % Nucleated RBCs 1 % Platelet Estimate NORMAL (NORMAL) RBC Morphology ABNORMAL Polychromasia 1+ Poikilocytosis 1+ Basophilic Stippling 1+ Anisocytosis 1+ ESR 72 H (0-20) mm/hr Sodium 133 L (137-145) mmol/L Potassium 2.7 L* (3.5-5.1) mmol/L Chloride 89 L (98-107) mmol/L Carbon Dioxide 31 H (22-30) mmol/L Anion Gap 15.1 H (5-15) MEQ/L BUN 66 H (7-17) mg/dL Creatinine 2.18 H (0.52-1.04) mg/dL Estimated GFR 22.8 ML/MIN Glucose 217 H (74-106) mg/dL POC Glucometer (74 to 106) mg/dL Hemoglobin A1c (4.5-6.0) % Lactic Acid 2.4 H (0.4-2.0) Uric Acid 15.7 H (2.6-6.0) mg/dL Calcium 9.0 (8.4-10.2) mg/dL Total Bilirubin 0.30 (0.2-1.3) mg/dL AST 23 (14-36) U/L ALT 15 (0-35) U/L Alkaline Phosphatase 78 (38-126) U/L Serum Total Protein 6.6 (6.3-8.2) g/dL Albumin 4.0 (3.5-5.0) g/dL Rheumatoid Factor Scrn (Negative) SARS-CoV-2 (PCR) (NEGATIVE) 03/11/21 03/11/21 03/11/21 Range/Units 11:03 12:53 13:00 WBC (4.0-10.5) K/mm3 RBC (4.1-5.4) M/mm3 Hgb (12.0-16.0) gm/dl Hct (35-47) % MCV (78-100) fl MCH (26-32) pg MCHC (32-36) g/dl RDW (11.5-14.0) % Plt Count (150-450) K/mm3 MPV (7.5-11.0) fl Segmented Neutrophils (36.0-66.0) % Band Neutrophils (0.0-2.0) % Lymphocytes (Manual) (24-44) % Monocytes (Manual) (0.0-12.0) % Basophils (Manual) (0.0-1.0) % Nucleated RBCs % Platelet Estimate (NORMAL) RBC Morphology Polychromasia Poikilocytosis Basophilic Stippling Anisocytosis ESR (0-20) mm/hr Sodium (137-145) mmol/L Potassium (3.5-5.1) mmol/L Chloride (98-107) mmol/L Carbon Dioxide (22-30) mmol/L Anion Gap (5-15) MEQ/L BUN (7-17) mg/dL Creatinine (0.52-1.04) mg/dL Estimated GFR ML/MIN Glucose (74-106) mg/dL POC Glucometer (74 to 106) mg/dL Hemoglobin A1c 7.82 H (4.5-6.0) % Lactic Acid 1.3 (0.4-2.0) Uric Acid (2.6-6.0) mg/dL Calcium (8.4-10.2) mg/dL Total Bilirubin (0.2-1.3) mg/dL AST (14-36) U/L ALT (0-35) U/L Alkaline Phosphatase (38-126) U/L Serum Total Protein (6.3-8.2) g/dL Albumin (3.5-5.0) g/dL Rheumatoid Factor Scrn POSITIVE (Negative) SARS-CoV-2 (PCR) (NEGATIVE) 03/11/21 03/11/21 03/11/21 Range/Units 13:39 16:41 21:28 WBC (4.0-10.5) K/mm3 RBC (4.1-5.4) M/mm3 Hgb (12.0-16.0) gm/dl Hct (35-47) % MCV (78-100) fl MCH (26-32) pg MCHC (32-36) g/dl RDW (11.5-14.0) % Plt Count (150-450) K/mm3 MPV (7.5-11.0) fl Segmented Neutrophils (36.0-66.0) % Band Neutrophils (0.0-2.0) % Lymphocytes (Manual) (24-44) % Monocytes (Manual) (0.0-12.0) % Basophils (Manual) (0.0-1.0) % Nucleated RBCs % Platelet Estimate (NORMAL) RBC Morphology Polychromasia Poikilocytosis Basophilic Stippling Anisocytosis ESR (0-20) mm/hr Sodium (137-145) mmol/L Potassium (3.5-5.1) mmol/L Chloride (98-107) mmol/L Carbon Dioxide (22-30) mmol/L Anion Gap (5-15) MEQ/L BUN (7-17) mg/dL Creatinine (0.52-1.04) mg/dL Estimated GFR ML/MIN Glucose (74-106) mg/dL POC Glucometer 353 H 452 H (74 to 106) mg/dL Hemoglobin A1c (4.5-6.0) % Lactic Acid (0.4-2.0) Uric Acid (2.6-6.0) mg/dL Calcium (8.4-10.2) mg/dL Total Bilirubin (0.2-1.3) mg/dL AST (14-36) U/L ALT (0-35) U/L Alkaline Phosphatase (38-126) U/L Serum Total Protein (6.3-8.2) g/dL Albumin (3.5-5.0) g/dL Rheumatoid Factor Scrn (Negative) SARS-CoV-2 (PCR) NEGATIVE (NEGATIVE) 03/12/21 Range/Units 07:28 WBC (4.0-10.5) K/mm3 RBC (4.1-5.4) M/mm3 Hgb (12.0-16.0) gm/dl Hct (35-47) % MCV (78-100) fl MCH (26-32) pg MCHC (32-36) g/dl RDW (11.5-14.0) % Plt Count (150-450) K/mm3 MPV (7.5-11.0) fl Segmented Neutrophils (36.0-66.0) % Band Neutrophils (0.0-2.0) % Lymphocytes (Manual) (24-44) % Monocytes (Manual) (0.0-12.0) % Basophils (Manual) (0.0-1.0) % Nucleated RBCs % Platelet Estimate (NORMAL) RBC Morphology Polychromasia Poikilocytosis Basophilic Stippling Anisocytosis ESR (0-20) mm/hr Sodium (137-145) mmol/L Potassium (3.5-5.1) mmol/L Chloride (98-107) mmol/L Carbon Dioxide (22-30) mmol/L Anion Gap (5-15) MEQ/L BUN (7-17) mg/dL Creatinine (0.52-1.04) mg/dL Estimated GFR ML/MIN Glucose (74-106) mg/dL POC Glucometer 291 H (74 to 106) mg/dL Hemoglobin A1c (4.5-6.0) % Lactic Acid (0.4-2.0) Uric Acid (2.6-6.0) mg/dL Calcium (8.4-10.2) mg/dL Total Bilirubin (0.2-1.3) mg/dL AST (14-36) U/L ALT (0-35) U/L Alkaline Phosphatase (38-126) U/L Serum Total Protein (6.3-8.2) g/dL Albumin (3.5-5.0) g/dL Rheumatoid Factor Scrn (Negative) SARS-CoV-2 (PCR) (NEGATIVE) Accuchecks Date 03/12/21 Date 03/11/21 - Radiology Impressions Radiology Exams & Impressions: Radiology Procedures Category Date Time Status HAND (MINIMUM 3 VIEWS) Stat Exams 03/11/21 11:08 Completed KNEE (1 OR 2 VIEW) Stat Exams 03/11/21 10:37 Completed Assessment/Plan (1) Acute gout Current Visit: Yes Status: Acute Assessment & Plan: improved on IV steroids, home on medrol kyra Code(s): M10.9 - GOUT, UNSPECIFIED (2) Hypokalemia Current Visit: Yes Status: Acute Assessment & Plan: replacing, will start on 20meq po potassium at home, draw bmp in 1 week Code(s): E87.6 - HYPOKALEMIA (3) DM2 (diabetes mellitus, type 2) Current Visit: No Status: Chronic Qualifiers: Diabetes mellitus prison insulin use: unspecified prison insulin use status Diabetes mellitus complication detail: with foot ulcer Hospital Summary - Vitals & Intake/Output Vital Signs: Vital Signs Temperature 98.1 F 03/12/21 07:52 Pulse Rate 68 03/12/21 07:52 Respiratory Rate 16 03/12/21 07:52 Blood Pressure 148/67 03/12/21 07:52 O2 Sat by Pulse Oximetry 97 03/12/21 07:52 Intake & Output: Intake & Output 03/09/21 03/10/21 03/11/21 03/12/21 11:59 11:59 11:59 11:59 Intake Total 2226 Output Total 400 Balance 1826 Weight 61.3 kg 60.2 kg - Lab Result Diagrams: 03/11/21 11:03 03/11/21 11:03 Lab Results-Last 24 Hrs: Lab Results-Last 24 Hours 03/11/21 03/11/21 03/11/21 Range/Units 10:45 11:03 11:03 WBC 9.1 (4.0-10.5) K/mm3 RBC 2.76 L (4.1-5.4) M/mm3 Hgb 8.6 L (12.0-16.0) gm/dl Hct 26.1 L (35-47) % MCV 94.6 (78-100) fl MCH 31.2 (26-32) pg MCHC 33.0 (32-36) g/dl RDW 19.2 H (11.5-14.0) % Plt Count 367 (150-450) K/mm3 MPV 9.3 (7.5-11.0) fl Segmented Neutrophils 75 H (36.0-66.0) % Band Neutrophils 4 H (0.0-2.0) % Lymphocytes (Manual) 12 L (24-44) % Monocytes (Manual) 8 (0.0-12.0) % Basophils (Manual) 1 (0.0-1.0) % Nucleated RBCs 1 % Platelet Estimate NORMAL (NORMAL) RBC Morphology ABNORMAL Polychromasia 1+ Poikilocytosis 1+ Basophilic Stippling 1+ Anisocytosis 1+ ESR 72 H (0-20) mm/hr Sodium 133 L (137-145) mmol/L Potassium 2.7 L* (3.5-5.1) mmol/L Chloride 89 L (98-107) mmol/L Carbon Dioxide 31 H (22-30) mmol/L Anion Gap 15.1 H (5-15) MEQ/L BUN 66 H (7-17) mg/dL Creatinine 2.18 H (0.52-1.04) mg/dL Estimated GFR 22.8 ML/MIN Glucose 217 H (74-106) mg/dL POC Glucometer (74 to 106) mg/dL Hemoglobin A1c (4.5-6.0) % Lactic Acid 2.4 H (0.4-2.0) Uric Acid 15.7 H (2.6-6.0) mg/dL Calcium 9.0 (8.4-10.2) mg/dL Total Bilirubin 0.30 (0.2-1.3) mg/dL AST 23 (14-36) U/L ALT 15 (0-35) U/L Alkaline Phosphatase 78 (38-126) U/L Serum Total Protein 6.6 (6.3-8.2) g/dL Albumin 4.0 (3.5-5.0) g/dL Rheumatoid Factor Scrn (Negative) SARS-CoV-2 (PCR) (NEGATIVE) 03/11/21 03/11/21 03/11/21 Range/Units 11:03 12:53 13:00 WBC (4.0-10.5) K/mm3 RBC (4.1-5.4) M/mm3 Hgb (12.0-16.0) gm/dl Hct (35-47) % MCV (78-100) fl MCH (26-32) pg MCHC (32-36) g/dl RDW (11.5-14.0) % Plt Count (150-450) K/mm3 MPV (7.5-11.0) fl Segmented Neutrophils (36.0-66.0) % Band Neutrophils (0.0-2.0) % Lymphocytes (Manual) (24-44) % Monocytes (Manual) (0.0-12.0) % Basophils (Manual) (0.0-1.0) % Nucleated RBCs % Platelet Estimate (NORMAL) RBC Morphology Polychromasia Poikilocytosis Basophilic Stippling Anisocytosis ESR (0-20) mm/hr Sodium (137-145) mmol/L Potassium (3.5-5.1) mmol/L Chloride (98-107) mmol/L Carbon Dioxide (22-30) mmol/L Anion Gap (5-15) MEQ/L BUN (7-17) mg/dL Creatinine (0.52-1.04) mg/dL Estimated GFR ML/MIN Glucose (74-106) mg/dL POC Glucometer (74 to 106) mg/dL Hemoglobin A1c 7.82 H (4.5-6.0) % Lactic Acid 1.3 (0.4-2.0) Uric Acid (2.6-6.0) mg/dL Calcium (8.4-10.2) mg/dL Total Bilirubin (0.2-1.3) mg/dL AST (14-36) U/L ALT (0-35) U/L Alkaline Phosphatase (38-126) U/L Serum Total Protein (6.3-8.2) g/dL Albumin (3.5-5.0) g/dL Rheumatoid Factor Scrn POSITIVE (Negative) SARS-CoV-2 (PCR) (NEGATIVE) 03/11/21 03/11/21 03/11/21 Range/Units 13:39 16:41 21:28 WBC (4.0-10.5) K/mm3 RBC (4.1-5.4) M/mm3 Hgb (12.0-16.0) gm/dl Hct (35-47) % MCV (78-100) fl MCH (26-32) pg MCHC (32-36) g/dl RDW (11.5-14.0) % Plt Count (150-450) K/mm3 MPV (7.5-11.0) fl Segmented Neutrophils (36.0-66.0) % Band Neutrophils (0.0-2.0) % Lymphocytes (Manual) (24-44) % Monocytes (Manual) (0.0-12.0) % Basophils (Manual) (0.0-1.0) % Nucleated RBCs % Platelet Estimate (NORMAL) RBC Morphology Polychromasia Poikilocytosis Basophilic Stippling Anisocytosis ESR (0-20) mm/hr Sodium (137-145) mmol/L Potassium (3.5-5.1) mmol/L Chloride (98-107) mmol/L Carbon Dioxide (22-30) mmol/L Anion Gap (5-15) MEQ/L BUN (7-17) mg/dL Creatinine (0.52-1.04) mg/dL Estimated GFR ML/MIN Glucose (74-106) mg/dL POC Glucometer 353 H 452 H (74 to 106) mg/dL Hemoglobin A1c (4.5-6.0) % Lactic Acid (0.4-2.0) Uric Acid (2.6-6.0) mg/dL Calcium (8.4-10.2) mg/dL Total Bilirubin (0.2-1.3) mg/dL AST (14-36) U/L ALT (0-35) U/L Alkaline Phosphatase (38-126) U/L Serum Total Protein (6.3-8.2) g/dL Albumin (3.5-5.0) g/dL Rheumatoid Factor Scrn (Negative) SARS-CoV-2 (PCR) NEGATIVE (NEGATIVE) 03/12/21 Range/Units 07:28 WBC (4.0-10.5) K/mm3 RBC (4.1-5.4) M/mm3 Hgb (12.0-16.0) gm/dl Hct (35-47) % MCV (78-100) fl MCH (26-32) pg MCHC (32-36) g/dl RDW (11.5-14.0) % Plt Count (150-450) K/mm3 MPV (7.5-11.0) fl Segmented Neutrophils (36.0-66.0) % Band Neutrophils (0.0-2.0) % Lymphocytes (Manual) (24-44) % Monocytes (Manual) (0.0-12.0) % Basophils (Manual) (0.0-1.0) % Nucleated RBCs % Platelet Estimate (NORMAL) RBC Morphology Polychromasia Poikilocytosis Basophilic Stippling Anisocytosis ESR (0-20) mm/hr Sodium (137-145) mmol/L Potassium (3.5-5.1) mmol/L Chloride (98-107) mmol/L Carbon Dioxide (22-30) mmol/L Anion Gap (5-15) MEQ/L BUN (7-17) mg/dL Creatinine (0.52-1.04) mg/dL Estimated GFR ML/MIN Glucose (74-106) mg/dL POC Glucometer 291 H (74 to 106) mg/dL Hemoglobin A1c (4.5-6.0) % Lactic Acid (0.4-2.0) Uric Acid (2.6-6.0) mg/dL Calcium (8.4-10.2) mg/dL Total Bilirubin (0.2-1.3) mg/dL AST (14-36) U/L ALT (0-35) U/L Alkaline Phosphatase (38-126) U/L Serum Total Protein (6.3-8.2) g/dL Albumin (3.5-5.0) g/dL Rheumatoid Factor Scrn (Negative) SARS-CoV-2 (PCR) (NEGATIVE) Micro Results-Entire Visit: Accuchecks Date 03/12/21 Date 03/11/21 - Radiology Exams Ordered Rad Exams-Entire Visit: Radiology Procedures Category Date Time Status HAND (MINIMUM 3 VIEWS) Stat Exams 03/11/21 11:08 Completed KNEE (1 OR 2 VIEW) Stat Exams 03/11/21 10:37 Completed - Discharge Disposition: Home, Self-Care Condition: Good Prescriptions: New Potassium Chloride [Klor-Con M20] 20 meq PO DAILY #30 tab.er.prt Methylprednisolone Packet [Medrol Dosepack] 4 mg PO UD #21 packet Continue Metoprolol Tartrate 50 mg [Lopressor 50 MG] 50 mg PO BID Sitagliptin Phosphate [Januvia] 100 mg PO DAILY Hydralazine HCl 50 mg PO TID Furosemide 40 mg [Lasix 40 MG] 60 mg PO BID metOLazone [Metolazone] 2.5 mg PO DAILY Linezolid [Zyvox] 600 mg PO BID Sodium Bicarbonate 650 mg PO DAILY Outpatient Orders: BMP Time Frame: 1 Week, Facility: [facility], Location: [facility] Follow up with: ALYSSA BARGER MD [Primary Care Provider] - 2 weeks
[2021-03-12] MEDS: HUMALOG SQ PRN ×2 (09:02→13:42)
[2021-03-12] MEDS: Apresoline 25 MG TABLET PO SCH (09:03)
[2021-03-12] MEDS: Lopressor 50 MG PO SCH (09:03)
[2021-03-12] MEDS: solu-MEDROL 125 MG IV SCH (09:03)
[2021-03-12] MEDS: ZYVOX PO SCH (09:04)
[2021-03-12] MEDS ORDERED: SODIUM BICARBONATE PO SCH (10:00)
[2021-03-12] MEDS ORDERED: Zaroxolyn 2.5 MG PO SCH (10:00)
[2021-03-12] MEDS ORDERED: NON-FORMULARY ITEM (Sodium Bicarbonate 650 MG) PO SCH (10:00)
[2021-03-12 11:24] LABS: ANISOCYTOSIS 1+; BAND 1 % (0.0-2.0); Hypochromia 1+; Lymphocytes 13 % (24-44); Microcytosis 1+; Monocyte 6 % (0.0-12.0); Neutrophils 80 % (36.0-66.0); Platelet Estimate NORMAL (NORMAL); Total Cells Counted 100
[2021-03-12 13:36] VITALS: BP 147/68; PULSE 63; O2SAT 96
== END 2021-03-12 14:30 | disposition home or self-care (01) ==
LOC: ED 10:28 → MED SURG 14:52
PROVIDERS: ADMIT Family Medicine; ATTEND Family Medicine
DX: M10.9 Gout, unspecified (principal); M25.561 Pain in right knee; M79.644 Pain in right finger(s); E87.6 Hypokalemia; E11.621 Type 2 diabetes mellitus with foot ulcer; Z79.899 Other long term (current) drug therapy; I10 Essential (primary) hypertension; Z20.828 Contact with and (suspected) exposure to other viral communicable diseases
CPT/HCPCS: 36415; 73130; 73560; 80053; 82947; 83036; 83605; 84550; 85025; 85652; 86140; 86430; 96374; 96375; 99285; G0378; U0003; J1817; J2930; J3010; A9270-GY

== ENCOUNTER 2021-04-01 09:43 | Emergency (ER) | payer MEDICARE ==
[2021-04-01] MEDS ORDERED: PERCOCET TABLET 5/325MG PO ONE (10:17)
[2021-04-01] MEDS ORDERED: PERCOCET TABLET 5/325MG ONE (10:19)
--- NOTE | 2021-04-01 10:23 | ERPHSYRPT ---
- History of Present Illness Time Seen by Provider: 04/01/21 10:01 Source: patient Exam Limitations: no limitations Patient Subjective Stated Complaint: Pt states "I was here recently for this and my feet and legs hurt me so bad." Triage Nursing Assessment: PT presented alert and oriented X 3, skin pwd Pt ambualtes with a slow gait. Pt lower extremeties are tender to touch, left lower extremity slightly swollen, pt stated that is normal for her. Physician History: 85 years old female with history of coronary artery disease, congestive heart failure, diabetes mellitus, CKD, chronic pain lower extremities presented in the ER with bilateral feet sharp shooting pain moderate to severe intensity especially with touching across the distal feet/toes, ambulation and partial relief with being still. Does have chronic swelling of the left lower extremity which is not any worse than usual and is actually better. No pain in the legs. No fever or chills reported. Timing/Duration: week(s), constant, gradual onset, worse Severity: moderate Modifying Factors: Improves With: nothing Associated Symptoms: denies symptoms Allergies/Adverse Reactions: No Known Drug Allergies Allergy (Verified 03/11/21 10:40) Home Medications: Metoprolol Tartrate 50 mg [Lopressor 50 MG] 50 mg PO BID 02/12/19 [History] Sitagliptin Phosphate [Januvia] 100 mg PO DAILY 02/12/19 [History] Furosemide 40 mg [Lasix 40 MG] 60 mg PO BID 10/08/19 [History] Hydralazine HCl 50 mg PO TID 10/08/19 [History] Linezolid [Zyvox] 600 mg PO BID 03/11/21 [History] Sodium Bicarbonate 650 mg PO DAILY 03/11/21 [History] metOLazone [Metolazone] 2.5 mg PO DAILY 03/11/21 [History] Hx Tetanus, Diphtheria Vaccination/Date Given: Yes Hx Influenza Vaccination/Date Given: Yes Hx Pneumococcal Vaccination/Date Given: No Immunizations Up to Date: Yes Travel Risk - International Travel Have you traveled outside of the country in past 3 weeks: No - Coronavirus Screening Are you exhibiting any of the following symptoms?: No Close contact with a COVID-19 positive Pt in past 14-21 Days: No - Vaccine Status Have you recieved a Covid-19 vaccination: No - Review of Systems Constitutional: No Symptoms Ears, Nose, & Throat: No Symptoms Respiratory: No Symptoms Cardiac: No Symptoms Abdominal/Gastrointestinal: No Symptoms Genitourinary Symptoms: No Symptoms Musculoskeletal: Arthralgias, Joint Pain, Joint Swelling Skin: Skin Lesions Neurological: No Symptoms Psychological: No Symptoms Endocrine: No Symptoms Hematologic/Lymphatic: No Symptoms - Past Medical History Pertinent Past Medical History: Yes Neurological History: No Pertinent History ENT History: No Pertinent History Cardiac History: Coronary Artery Disease, Hypertension, Myocardial Infarction ([place]) Respiratory History: CHF Endocrine Medical History: Diabetes Type II Musculoskeletal History: Osteoarthritis GI Medical History: Other History: No Pertinent History Psycho-Social History: No Pertinent History Female Reproductive Disorders: No Pertinent History Other Medical History: CARDIAC STENT 01/02; Enlarged liver, open heart surgery 12/08/18 - Past Surgical History Past Surgical History: Yes Neuro Surgical History: No Pertinent History Cardiac: Angioplasty, CABG, Cardiac Catheterization, Cardiac Stent Respiratory: No Pertinent History Gastrointestinal: No Pertinent History Genitourinary: No Pertinent History Musculoskeletal: Other Female Surgical History: Hysterectomy Other Surgical History: cardiac stent x three December. CABG x 4 vessels in -2018, wound care for bilateral legs within the last year - Social History Smoking Status: Never smoker Exposure to second hand smoke: No Drug Use: none Patient Lives Alone: No - Female History Hx Now: No - Nursing Vital Signs Nursing Vital Signs: Initial Vital Signs Temperature 97.5 F 04/01/21 09:50 Pulse Rate 98 H 04/01/21 09:50 Respiratory Rate 22 04/01/21 09:50 Blood Pressure 170/92 04/01/21 09:50 O2 Sat by Pulse Oximetry 100 04/01/21 09:50 Pain Scale Pain Intensity 7 - Physical Exam General Appearance: no apparent distress, alert, anxiety Eye Exam: eyes nml inspection Ears, Nose, Throat Exam: normal ENT inspection, pharynx normal Neck Exam: normal inspection, non-tender, full range of motion Respiratory Exam: normal breath sounds, lungs clear Cardiovascular Exam: regular rate/rhythm, normal heart sounds Extremity Exam: other (Diffuse swelling left lower extremity without any erythema. Negative Homans' sign bilaterally. Weakly palpable pulses in dorsalis pedis bilaterally. Capillary refill 3 seconds. Sharp shooting pain with light palpation/touching distal feet/toes. Intact range of motion.) Neurologic Exam: alert, oriented x 3, cooperative, wool mixer II-XII nml as tested Skin Exam: normal color, other (Multiple areas of picking in the upper and lower extremities, back of neck with good granulation tissue. No induration.) SpO2 Interpretation: normal SpO2: 100 O2 Delivery: Room Air Ordered Tests: Medication Summary Discontinued Medications Generic Name Dose Route Start Last Admin Trade Name Freq PRN Reason Stop Dose Admin Oxycodone/Acetaminophen 1 tab 04/01/21 10:17 Percocet Tablet 5/325mg PO 04/01/21 10:18 STAT ONE - Progress Progress: improved Progress Note: 04/01/21 she is given symptomatic treatment for pain as I believe patient has neuropathic pain. Will start on Neurontin and follow-up outpatient follow-up with primary care. I have seen patient last month for neck swelling which was way worse than today's presentation. She has diffuse swelling but it is chronic. Do not think she needs duplex imaging. Her pain is reproducible with minimal touching. Discussed signs symptoms of worsening needing return to ER which she seems understanding. Stable for discharge. Counseled pt/family regarding: diagnosis, need for follow-up - Departure Departure Disposition: Home Clinical Impression: Neuropathic pain Condition: Stable Critical Care Time: No Referrals: ALYSSA BARGER MD [Primary Care Provider] - (1-2 days for reevaluation) Instructions: Peripheral Neuropathy (DC) Additional Instructions: Take pain medications as needed. Use cane/walker for ambulation all the times. Follow-up with primary care physician for reevaluation. Return to ER for worsening pain in the feet or if develop leg pain, more than usual swelling, redness etc. Prescriptions: Gabapentin 100 mg [Neurontin 100 MG] 100 mg PO TID PRN 4 Days #10 capsule PRN Reason: Pain
[2021-04-01 11:00] VITALS: BP 144/80; PULSE 92; O2SAT 98
== END 2021-04-01 11:17 | disposition home or self-care (01) ==
LOC: ED 09:43
DX: G62.9 Polyneuropathy, unspecified (principal); M79.672 Pain in left foot; M79.671 Pain in right foot; M79.89 Other specified soft tissue disorders; Z79.899 Other long term (current) drug therapy; E11.9 Type 2 diabetes mellitus without complications; I10 Essential (primary) hypertension; Z86.79 Personal history of other diseases of the circulatory system
CPT/HCPCS: 99283; A9270-GY

== ENCOUNTER 2021-04-06 16:06 | Observation (INO) | payer MEDICARE ==
[2021-04-06] MEDS ORDERED: CARDIZEM DRIP 100 MG/100 ML D5W 100 ML IV PRN (16:35)
[2021-04-06] MEDS: Lasix 40 MG/4 ML IV SCH (17:27)
[2021-04-06 18:37] LABS: Hematocrit 24.1 % (35-47); Hemoglobin 7.9 gm/dl (12.0-16.0); Mean Cell Volume 94.1 fl (78-100); Mean Corpuscular Hemoglobin 30.9 pg (26-32); Mean Corpuscular Hgb Concent. 32.8 g/dl (32-36); Mean Platelet Volume 9.8 fl (7.5-11.0); Platelet Count 300 K/mm3 (150-450); Red Blood Count 2.56 M/mm3 (4.1-5.4); Red Cell Distribution Width 19.7 % (11.5-14.0); White Blood Count 8.2 K/mm3 (4.0-10.5)
[2021-04-06 18:42] LABS: Appearance CLEAR (CLEAR); Bacteria RARE /HPF (NEGATIVE); Bilirubin NEGATIVE (NEGATIVE); Blood NEGATIVE Ery/ul (0-5); Glucose 50 mg/dL (NEGATIVE); Ketones NEGATIVE (NEGATIVE); Leukocyte Esterase TRACE (NEGATIVE); Nitrite NEGATIVE (NEGATIVE); Protein,Urine Dip NEGATIVE (Negative); Specific Gravity 1.006 (1.005-1.025); Urobilinogen NEGATIVE mg/dL (0-1); WBC 0-2 /HPF (0-5)
[2021-04-06 18:56] LABS: ALBUMIN 3.9 g/dL (3.5-5.0); ANION GAP 18.8 MEQ/L (5-15); BILIRUBIN,TOTAL 0.3 mg/dL (0.2-1.3); Calcium 8.8 mg/dL (8.4-10.2); Creatinine 1 1.6 mg/dL (0.52-1.04); EST GLOMERULAR FILTRATION RATE 32.6 ML/MIN; Potassium 3.2 mmol/L (3.5-5.1); TROPONIN 0.033 ng/mL (0.000-0.034); Total Protein 6.5 g/dL (6.3-8.2)
[2021-04-06] MEDS: NORCO 5/325 MG PO PRN ×2 (19:07→22:31)
[2021-04-06] MEDS: Klor Con 10 MEQ PO SCH (19:40)
[2021-04-06] MEDS ORDERED: Klor Con 10 MEQ PO ONE (19:42)
[2021-04-06] MEDS: Lopressor 50 MG PO SCH (19:46)
[2021-04-06] MEDS ORDERED: Levaquin 250MG/50ML D5W 250 MG/50 ML BAG IV ONE (20:00)
--- NOTE | 2021-04-06 21:07 | XRAY ---
Indication: CHF. Comparison: February 09, 2020. Portable chest demonstrates borderline cardiomegaly, less than before. There remains CABG surgery and cardiac valve replacement surgery. Lungs inflated again with minimal left base subsegmental atelectasis/scarring and tiny right costophrenic angle pleural effusion/thickening. No focal infiltrate, consolidation, or large effusion. Bony thorax intact again with osteopenia and degenerative changes. Impression: Nonacute chest with chronic features. Negative for acute pneumonic process or CHF.
[2021-04-06] MEDS: Apresoline 25 MG TABLET PO SCH (21:40)
[2021-04-06] MEDS ORDERED: ENOXAPARIN SODIUM SQ SCH (22:00)
[2021-04-06 23:48] LABS: BAND 1 % (0.0-2.0); Basophil 1 % (0.0-1.0); Eosinophil 1 % (0.00-3.0); Lymphocytes 19 % (24-44); Metamyelocyte 1 %; Monocyte 5 % (0.0-12.0); Neutrophils 72 % (36.0-66.0); Platelet Estimate NORMAL (NORMAL); Total Cells Counted 100
[2021-04-07] MEDS: NORCO 5/325 MG PO PRN ×4 (02:15→23:26)
[2021-04-07] MEDS: Lasix 40 MG/4 ML IV SCH ×2 (05:41→17:43)
[2021-04-07 06:42] LABS: Hematocrit 21.7 % (35-47); Hemoglobin 7.1 gm/dl (12.0-16.0); Mean Cell Volume 95.6 fl (78-100); Mean Corpuscular Hemoglobin 31.3 pg (26-32); Mean Corpuscular Hgb Concent. 32.7 g/dl (32-36); Mean Platelet Volume 9.5 fl (7.5-11.0); Platelet Count 243 K/mm3 (150-450); Red Blood Count 2.27 M/mm3 (4.1-5.4); Red Cell Distribution Width 19.8 % (11.5-14.0); White Blood Count 6.3 K/mm3 (4.0-10.5)
[2021-04-07 06:54] LABS: ALBUMIN 3.3 g/dL (3.5-5.0); ANION GAP 15.3 MEQ/L (5-15); BILIRUBIN,TOTAL 0.3 mg/dL (0.2-1.3); Calcium 8.4 mg/dL (8.4-10.2); Creatinine 1 1.79 mg/dL (0.52-1.04); EST GLOMERULAR FILTRATION RATE 28.6 ML/MIN; Potassium 3.5 mmol/L (3.5-5.1); Total Protein 5.8 g/dL (6.3-8.2)
[2021-04-07 07:13] LABS: BAND 2 % (0.0-2.0); Lymphocytes 8 % (24-44); Metamyelocyte 2 %; Monocyte 6 % (0.0-12.0); Neutrophils 82 % (36.0-66.0); Total Cells Counted 100
[2021-04-07 07:14] LABS: ANISOCYTOSIS 1+; Hypochromia 1+; Poikilocytosis 1+; Polychromasia 1+
[2021-04-07 07:17] LABS: Platelet Estimate NORMAL (NORMAL)
[2021-04-07] MEDS ORDERED: PHARMACY DOSING REQUEST MC ONE (08:00)
[2021-04-07] MEDS ORDERED: NON-FORMULARY ITEM (Sitagliptin Phosphate [Januvia] 100 MG) PO SCH (10:00)
[2021-04-07] MEDS ORDERED: NON-FORMULARY ITEM (Sodium Bicarbonate 650 MG) PO SCH (10:00)
[2021-04-07] MEDS: ENOXAPARIN SODIUM SQ SCH (10:56)
[2021-04-07] MEDS: Zaroxolyn 2.5 MG PO SCH (10:56)
[2021-04-07] MEDS: Apresoline 25 MG TABLET PO SCH ×3 (10:57→20:40)
[2021-04-07] MEDS: Lopressor 50 MG PO SCH ×2 (10:57→21:06)
[2021-04-07] MEDS: SODIUM BICARBONATE PO SCH (10:57)
[2021-04-07] MEDS: Januvia 50 MG PO SCH (10:57)
[2021-04-07] MEDS: Klor Con 10 MEQ PO SCH (10:58)
[2021-04-07] MEDS ORDERED: Lasix 40 MG/4 ML IV ONE (11:00)
[2021-04-07] MEDS ORDERED: Klor Con 10 MEQ PO ONE (11:00)
--- NOTE | 2021-04-07 11:00 | PCM.HP ---
History of Present Illness - Chief Complaint Chief Complaint: A FIB RVR History of Present Illness: is a 85 year old female. Direct admit from Dr Milan 's office - see his office visit notes/H&P. Medications & Allergies Home Medications: Home Medication List Metoprolol Tartrate 50 mg [Lopressor 50 MG] 50 mg PO BID 02/12/19 [History Confirmed 04/06/21] Sitagliptin Phosphate [Januvia] 100 mg PO DAILY 02/12/19 [History Confirmed 03/22 03/12] Furosemide 40 mg [Lasix 40 MG] 60 mg PO BID 10/08/19 [History Confirmed 04/06/21] Hydralazine HCl 50 mg PO TID 10/08/19 [History Confirmed 04/06/21] Sodium Bicarbonate 650 mg PO DAILY 03/11/21 [History Confirmed 04/06/21] metOLazone [Metolazone] 2.5 mg PO DAILY 03/11/21 [History Confirmed 04/06/21] Allergies/Adverse Reactions: Allergies Allergy/AdvReac Type Severity Reaction Status Date / Time No Known Drug Allergies Allergy Verified 03/11/21 10:40 - Past Medical History Past Medical History: Yes Neurological History: No Pertinent History ENT History: No Pertinent History Cardiac History: Coronary Artery Disease, Hypertension, Myocardial Infarction ([place]) Respiratory History: CHF Endocrine Medical History: Diabetes Type II Musculoskelatal History: Osteoarthritis GI Medical History: Other History: Renal Disease Pyscho-Social History: No Pertinent History Reproductive Disorders: No Pertinent History Comment: CARDIAC STENT 01/02; Enlarged liver, open heart surgery 12/08/18 - Past Surgical History Past Surgical History: Yes Neuro Surgical History: No Pertinent History Cardiac History: Angioplasty, CABG, Cardiac Catheterization, Cardiac Stent Respiratory Surgery: No Pertinent History GI Surgical History: No Pertinent History Genitourinary Surgical Hx: No Pertinent History Musculskeletal Surgical Hx: Other Female Surgical History: Hysterectomy Other Surgical History: cardiac stent x three December. CABG x 4 vessels in -2018, wound care for bilateral legs within the last year - Social History Smoking Status: Never smoker Exposure to second hand smoke: No Alcohol: None Drug Use: none - Physical Exam Vital Signs: Vital Signs - 24 hr Temp Pulse Resp BP Pulse Ox 04/07/21 08:00 98.4 F 80 16 124/61 97 04/07/21 04:20 98.6 F 82 18 119/63 97 04/07/21 03:54 67 04/07/21 00:01 98.7 F 67 16 101/56 97 04/06/21 19:50 100.5 F 82 18 139/61 98 04/06/21 19:34 80 04/06/21 17:44 98.7 F 136 H 20 143/55 97 04/06/21 16:41 98.7 F 136 H 20 143/88 97 Wound Assessment: Skin/Wound Assessment Wound/Incision Assessment Start: 04/06/21 17:20 Text: Status: Active Freq: Q6H Protocol: Document 04/07/21 08:00 MS (Rec: 04/07/21 08:39 MS [id number]) Wound/Incision Assessment Right Arm Wound Assessment Admission Wound Type ULCERATIONS Wound Stage Non Pressure Wound Comment MULTIPLE ULCERATIONS NOTED TO RIGHT ARM, OPEN TO AIR, NO DRAINAGE, PICTURE IN CHART Left Lower Calf Wound Assessment Admission Wound Type ULCERATION Wound Stage Non Pressure Wound Drainage Amount Minimal Drainage Description Purulent Drainage Odor None/Absent General Appearance Open to air,Draining Length (cm) (cm) 2 Width (cm) (cm) 1 Wound Bed Greatest Portion Yellow (Slough) Wound Bed Lesser Portion Pale Almond Surrounding Tissue Almond Comment PICTURE IN CHART Results - Labs Lab/Micro Results: Lab Results-Last 24 Hours 04/06/21 04/06/21 04/06/21 Range/Units 16:50 17:00 17:00 WBC (4.0-10.5) K/mm3 RBC (4.1-5.4) M/mm3 Hgb (12.0-16.0) gm/dl Hct (35-47) % MCV (78-100) fl MCH (26-32) pg MCHC (32-36) g/dl RDW (11.5-14.0) % Plt Count (150-450) K/mm3 MPV (7.5-11.0) fl Segmented Neutrophils (36.0-66.0) % Band Neutrophils (0.0-2.0) % Lymphocytes (Manual) (24-44) % Monocytes (Manual) (0.0-12.0) % Eosinophils (Manual) (0.00-3.0) % Basophils (Manual) (0.0-1.0) % Metamyelocytes % Hypochromia Platelet Estimate (NORMAL) RBC Morphology Polychromasia Poikilocytosis Anisocytosis Sodium (137-145) mmol/L Potassium (3.5-5.1) mmol/L Chloride (98-107) mmol/L Carbon Dioxide (22-30) mmol/L Anion Gap (5-15) MEQ/L BUN (7-17) mg/dL Creatinine (0.52-1.04) mg/dL Estimated GFR ML/MIN Glucose (74-106) mg/dL POC Glucometer (74 to 106) mg/dL Calcium (8.4-10.2) mg/dL Magnesium 2.1 (1.6-2.3) mg/dL Total Bilirubin (0.2-1.3) mg/dL AST (14-36) U/L ALT (0-35) U/L Alkaline Phosphatase (38-126) U/L Troponin I (0.000-0.034) ng/mL NT-Pro-B Natriuret Pep 45301 H (0-1800) pg/mL Serum Total Protein (6.3-8.2) g/dL Albumin (3.5-5.0) g/dL Urine Color (YELLOW) Urine Appearance (CLEAR) Urine pH (5-6) Ur Specific Declo (1.005-1.025) Urine Protein (Negative) Urine Ketones (NEGATIVE) Urine Blood (0-5) Jose/ul Urine Nitrite (NEGATIVE) Urine Bilirubin (NEGATIVE) Urine Urobilinogen (0-1) mg/dL Ur Leukocyte Esterase (NEGATIVE) Urine WBC (Auto) (0-5) /HPF Urine RBC (Auto) (0-2) /HPF U Hyaline Cast (Auto) (0-2) /LPF U Epithel Cells (Auto) (FEW) /HPF Urine Bacteria (Auto) (NEGATIVE) /HPF Urine Culture Reflexed (NO) Urine Glucose (NEGATIVE) mg/dL SARS-CoV-2 (PCR) NEGATIVE (NEGATIVE) 04/06/21 04/06/21 04/06/21 Range/Units 17:01 17:01 18:30 WBC 8.2 (4.0-10.5) K/mm3 RBC 2.56 L (4.1-5.4) M/mm3 Hgb 7.9 L (12.0-16.0) gm/dl Hct 24.1 L (35-47) % MCV 94.1 (78-100) fl MCH 30.9 (26-32) pg MCHC 32.8 (32-36) g/dl RDW 19.7 H (11.5-14.0) % Plt Count 300 (150-450) K/mm3 MPV 9.8 (7.5-11.0) fl Segmented Neutrophils 72 H (36.0-66.0) % Band Neutrophils 1 (0.0-2.0) % Lymphocytes (Manual) 19 L (24-44) % Monocytes (Manual) 5 (0.0-12.0) % Eosinophils (Manual) 1 (0.00-3.0) % Basophils (Manual) 1 (0.0-1.0) % Metamyelocytes 1 % Hypochromia Platelet Estimate NORMAL (NORMAL) RBC Morphology NORMAL Polychromasia Poikilocytosis Anisocytosis Sodium 132 L (137-145) mmol/L Potassium 3.2 L (3.5-5.1) mmol/L Chloride 91 L (98-107) mmol/L Carbon Dioxide 25 (22-30) mmol/L Anion Gap 18.8 H (5-15) MEQ/L BUN 38 H (7-17) mg/dL Creatinine 1.60 H (0.52-1.04) mg/dL Estimated GFR 32.6 ML/MIN Glucose 259 H (74-106) mg/dL POC Glucometer (74 to 106) mg/dL Calcium 8.8 (8.4-10.2) mg/dL Magnesium (1.6-2.3) mg/dL Total Bilirubin 0.30 (0.2-1.3) mg/dL AST 23 (14-36) U/L ALT 16 (0-35) U/L Alkaline Phosphatase 89 (38-126) U/L Troponin I 0.033 (0.000-0.034) ng/mL NT-Pro-B Natriuret Pep (0-1800) pg/mL Serum Total Protein 6.5 (6.3-8.2) g/dL Albumin 3.9 (3.5-5.0) g/dL Urine Color STRAW (YELLOW) Urine Appearance CLEAR (CLEAR) Urine pH 6.0 (5-6) Ur Specific Declo 1.006 (1.005-1.025) Urine Protein NEGATIVE (Negative) Urine Ketones NEGATIVE (NEGATIVE) Urine Blood NEGATIVE (0-5) Jose/ul Urine Nitrite NEGATIVE (NEGATIVE) Urine Bilirubin NEGATIVE (NEGATIVE) Urine Urobilinogen NEGATIVE (0-1) mg/dL Ur Leukocyte Esterase TRACE (NEGATIVE) Urine WBC (Auto) 0-2 (0-5) /HPF Urine RBC (Auto) NONE (0-2) /HPF U Hyaline Cast (Auto) 3-5 (0-2) /LPF U Epithel Cells (Auto) NONE (FEW) /HPF Urine Bacteria (Auto) RARE (NEGATIVE) /HPF Urine Culture Reflexed NO (NO) Urine Glucose 50 (NEGATIVE) mg/dL SARS-CoV-2 (PCR) (NEGATIVE) 04/06/21 04/07/21 04/07/21 Range/Units 20:47 06:30 06:30 WBC 6.3 (4.0-10.5) K/mm3 RBC 2.27 L (4.1-5.4) M/mm3 Hgb 7.1 L (12.0-16.0) gm/dl Hct 21.7 L (35-47) % MCV 95.6 (78-100) fl MCH 31.3 (26-32) pg MCHC 32.7 (32-36) g/dl RDW 19.8 H (11.5-14.0) % Plt Count 243 (150-450) K/mm3 MPV 9.5 (7.5-11.0) fl Segmented Neutrophils 82 H (36.0-66.0) % Band Neutrophils 2 (0.0-2.0) % Lymphocytes (Manual) 8 L (24-44) % Monocytes (Manual) 6 (0.0-12.0) % Eosinophils (Manual) (0.00-3.0) % Basophils (Manual) (0.0-1.0) % Metamyelocytes 2 % Hypochromia 1+ Platelet Estimate NORMAL (NORMAL) RBC Morphology ABNORMAL Polychromasia 1+ Poikilocytosis 1+ Anisocytosis 1+ Sodium 130 L (137-145) mmol/L Potassium 3.5 (3.5-5.1) mmol/L Chloride 90 L (98-107) mmol/L Carbon Dioxide 27 (22-30) mmol/L Anion Gap 15.3 H (5-15) MEQ/L BUN 39 H (7-17) mg/dL Creatinine 1.79 H (0.52-1.04) mg/dL Estimated GFR 28.6 ML/MIN Glucose 141 H (74-106) mg/dL POC Glucometer 217 H (74 to 106) mg/dL Calcium 8.4 (8.4-10.2) mg/dL Magnesium (1.6-2.3) mg/dL Total Bilirubin 0.30 (0.2-1.3) mg/dL AST 18 (14-36) U/L ALT 13 (0-35) U/L Alkaline Phosphatase 76 (38-126) U/L Troponin I (0.000-0.034) ng/mL NT-Pro-B Natriuret Pep 92965 H (0-1800) pg/mL Serum Total Protein 5.8 L (6.3-8.2) g/dL Albumin 3.3 L (3.5-5.0) g/dL Urine Color (YELLOW) Urine Appearance (CLEAR) Urine pH (5-6) Ur Specific Declo (1.005-1.025) Urine Protein (Negative) Urine Ketones (NEGATIVE) Urine Blood (0-5) Jose/ul Urine Nitrite (NEGATIVE) Urine Bilirubin (NEGATIVE) Urine Urobilinogen (0-1) mg/dL Ur Leukocyte Esterase (NEGATIVE) Urine WBC (Auto) (0-5) /HPF Urine RBC (Auto) (0-2) /HPF U Hyaline Cast (Auto) (0-2) /LPF U Epithel Cells (Auto) (FEW) /HPF Urine Bacteria (Auto) (NEGATIVE) /HPF Urine Culture Reflexed (NO) Urine Glucose (NEGATIVE) mg/dL SARS-CoV-2 (PCR) (NEGATIVE) 04/07/21 Range/Units 07:13 WBC (4.0-10.5) K/mm3 RBC (4.1-5.4) M/mm3 Hgb (12.0-16.0) gm/dl Hct (35-47) % MCV (78-100) fl MCH (26-32) pg MCHC (32-36) g/dl RDW (11.5-14.0) % Plt Count (150-450) K/mm3 MPV (7.5-11.0) fl Segmented Neutrophils (36.0-66.0) % Band Neutrophils (0.0-2.0) % Lymphocytes (Manual) (24-44) % Monocytes (Manual) (0.0-12.0) % Eosinophils (Manual) (0.00-3.0) % Basophils (Manual) (0.0-1.0) % Metamyelocytes % Hypochromia Platelet Estimate (NORMAL) RBC Morphology Polychromasia Poikilocytosis Anisocytosis Sodium (137-145) mmol/L Potassium (3.5-5.1) mmol/L Chloride (98-107) mmol/L Carbon Dioxide (22-30) mmol/L Anion Gap (5-15) MEQ/L BUN (7-17) mg/dL Creatinine (0.52-1.04) mg/dL Estimated GFR ML/MIN Glucose (74-106) mg/dL POC Glucometer 129 H (74 to 106) mg/dL Calcium (8.4-10.2) mg/dL Magnesium (1.6-2.3) mg/dL Total Bilirubin (0.2-1.3) mg/dL AST (14-36) U/L ALT (0-35) U/L Alkaline Phosphatase (38-126) U/L Troponin I (0.000-0.034) ng/mL NT-Pro-B Natriuret Pep (0-1800) pg/mL Serum Total Protein (6.3-8.2) g/dL Albumin (3.5-5.0) g/dL Urine Color (YELLOW) Urine Appearance (CLEAR) Urine pH (5-6) Ur Specific Declo (1.005-1.025) Urine Protein (Negative) Urine Ketones (NEGATIVE) Urine Blood (0-5) Jose/ul Urine Nitrite (NEGATIVE) Urine Bilirubin (NEGATIVE) Urine Urobilinogen (0-1) mg/dL Ur Leukocyte Esterase (NEGATIVE) Urine WBC (Auto) (0-5) /HPF Urine RBC (Auto) (0-2) /HPF U Hyaline Cast (Auto) (0-2) /LPF U Epithel Cells (Auto) (FEW) /HPF Urine Bacteria (Auto) (NEGATIVE) /HPF Urine Culture Reflexed (NO) Urine Glucose (NEGATIVE) mg/dL SARS-CoV-2 (PCR) (NEGATIVE) Accuchecks Date 04/07/21 - Radiology Impressions Radiology Exams & Impressions: Radiology Procedures Category Date Time Status CHEST 1 VIEW (PORTABLE) Stat Exams 04/06/21 16:34 Completed
--- NOTE | 2021-04-07 11:10 | PCM.NOTE ---
Date and Time: 04/07/21 1100. Patient was admitted direct adm from Dr Milan's office with Afib RVR. She was to start Cardiazem drip but during admission rate went down from, 136 afib to 90s then 81. This morning she is in sinus rate low 80s.She c/o fatigue 'just so tired " for several months but getting worse.She sees Dr Horner for CHF and does not have peripheral edema but has swollen abdomen"sometimes I look 9 months " . BNP 45,000 on admission and 43,400 this morning. Was started on Lasix 40mg IVP bid in ER. Patient states she has had to receive blood transfusion in the past .Hgb January 2020 was 11.9 and has been 7.9-10 in the past several months. Denies dark or bloody stools or abdominal pain. - Review of Systems Constitutional: Fatigue Eyes: No Symptoms Respiratory: No Symptoms Cardiac: Palpitations Abdominal/Gastrointestinal: No Symptoms Genitourinary Symptoms: No Symptoms Musculoskeletal: Other (left foot and ankle pain) Objective Exam Neurologic Exam: alert, oriented x 3 Skin Exam: pale (dusky) Wound Assessment: Skin/Wound Assessment Wound/Incision Assessment Start: 04/06/21 17:20 Text: Status: Active Freq: Q6H Protocol: Document 04/07/21 08:00 MS (Rec: 04/07/21 08:39 MS [id number]) Wound/Incision Assessment Right Arm Wound Assessment Admission Wound Type ULCERATIONS Wound Stage Non Pressure Wound Comment MULTIPLE ULCERATIONS NOTED TO RIGHT ARM, OPEN TO AIR, NO DRAINAGE, PICTURE IN CHART Left Lower Calf Wound Assessment Admission Wound Type ULCERATION Wound Stage Non Pressure Wound Drainage Amount Minimal Drainage Description Purulent Drainage Odor None/Absent General Appearance Open to air,Draining Length (cm) (cm) 2 Width (cm) (cm) 1 Wound Bed Greatest Portion Yellow (Slough) Wound Bed Lesser Portion Pale Blacktail Surrounding Tissue Blacktail Comment PICTURE IN CHART Eye Exam: eyes nml inspection Ears, Nose, Throat Exam: normal ENT inspection Neck Exam: normal inspection Respiratory Exam: normal breath sounds Cardiovascular Exam: other (rate 85 and regular,Tele showed afib on admission) Gastrointestinal/Abdomen Exam: normal bowel sounds (nontender), distention Extremity Exam: other (no edema) OBJECTIVE DATA Vital Signs: Vital Signs - 24 hr Temp Pulse Resp BP Pulse Ox 04/07/21 08:00 98.4 F 80 16 124/61 97 04/07/21 04:20 98.6 F 82 18 119/63 97 04/07/21 03:54 67 04/07/21 00:01 98.7 F 67 16 101/56 97 04/06/21 19:50 100.5 F 82 18 139/61 98 04/06/21 19:34 80 04/06/21 17:44 98.7 F 136 H 20 143/55 97 04/06/21 16:41 98.7 F 136 H 20 143/88 97 Pain Assessment - Last Documented Pain Intensity 8 Pain Scale Used 0-10 Pain Scale Intake and Output: Intake & Output 04/04/21 04/05/21 04/06/21 04/07/21 11:59 11:59 11:59 11:59 Intake Total 440 Output Total 1200 Balance -760 Weight 60.5 kg Lab Results: Lab Results-Last 24 Hours 04/06/21 04/06/21 04/06/21 Range/Units 16:50 17:00 17:00 WBC (4.0-10.5) K/mm3 RBC (4.1-5.4) M/mm3 Hgb (12.0-16.0) gm/dl Hct (35-47) % MCV (78-100) fl MCH (26-32) pg MCHC (32-36) g/dl RDW (11.5-14.0) % Plt Count (150-450) K/mm3 MPV (7.5-11.0) fl Segmented Neutrophils (36.0-66.0) % Band Neutrophils (0.0-2.0) % Lymphocytes (Manual) (24-44) % Monocytes (Manual) (0.0-12.0) % Eosinophils (Manual) (0.00-3.0) % Basophils (Manual) (0.0-1.0) % Metamyelocytes % Hypochromia Platelet Estimate (NORMAL) RBC Morphology Polychromasia Poikilocytosis Anisocytosis Sodium (137-145) mmol/L Potassium (3.5-5.1) mmol/L Chloride (98-107) mmol/L Carbon Dioxide (22-30) mmol/L Anion Gap (5-15) MEQ/L BUN (7-17) mg/dL Creatinine (0.52-1.04) mg/dL Estimated GFR ML/MIN Glucose (74-106) mg/dL POC Glucometer (74 to 106) mg/dL Calcium (8.4-10.2) mg/dL Magnesium 2.1 (1.6-2.3) mg/dL Total Bilirubin (0.2-1.3) mg/dL AST (14-36) U/L ALT (0-35) U/L Alkaline Phosphatase (38-126) U/L Troponin I (0.000-0.034) ng/mL NT-Pro-B Natriuret Pep 15903 H (0-1800) pg/mL Serum Total Protein (6.3-8.2) g/dL Albumin (3.5-5.0) g/dL Urine Color (YELLOW) Urine Appearance (CLEAR) Urine pH (5-6) Ur Specific [place] (1.005-1.025) Urine Protein (Negative) Urine Ketones (NEGATIVE) Urine Blood (0-5) Jose/ul Urine Nitrite (NEGATIVE) Urine Bilirubin (NEGATIVE) Urine Urobilinogen (0-1) mg/dL Ur Leukocyte Esterase (NEGATIVE) Urine WBC (Auto) (0-5) /HPF Urine RBC (Auto) (0-2) /HPF U Hyaline Cast (Auto) (0-2) /LPF U Epithel Cells (Auto) (FEW) /HPF Urine Bacteria (Auto) (NEGATIVE) /HPF Urine Culture Reflexed (NO) Urine Glucose (NEGATIVE) mg/dL SARS-CoV-2 (PCR) NEGATIVE (NEGATIVE) 04/06/21 04/06/21 04/06/21 Range/Units 17:01 17:01 18:30 WBC 8.2 (4.0-10.5) K/mm3 RBC 2.56 L (4.1-5.4) M/mm3 Hgb 7.9 L (12.0-16.0) gm/dl Hct 24.1 L (35-47) % MCV 94.1 (78-100) fl MCH 30.9 (26-32) pg MCHC 32.8 (32-36) g/dl RDW 19.7 H (11.5-14.0) % Plt Count 300 (150-450) K/mm3 MPV 9.8 (7.5-11.0) fl Segmented Neutrophils 72 H (36.0-66.0) % Band Neutrophils 1 (0.0-2.0) % Lymphocytes (Manual) 19 L (24-44) % Monocytes (Manual) 5 (0.0-12.0) % Eosinophils (Manual) 1 (0.00-3.0) % Basophils (Manual) 1 (0.0-1.0) % Metamyelocytes 1 % Hypochromia Platelet Estimate NORMAL (NORMAL) RBC Morphology NORMAL Polychromasia Poikilocytosis Anisocytosis Sodium 132 L (137-145) mmol/L Potassium 3.2 L (3.5-5.1) mmol/L Chloride 91 L (98-107) mmol/L Carbon Dioxide 25 (22-30) mmol/L Anion Gap 18.8 H (5-15) MEQ/L BUN 38 H (7-17) mg/dL Creatinine 1.60 H (0.52-1.04) mg/dL Estimated GFR 32.6 ML/MIN Glucose 259 H (74-106) mg/dL POC Glucometer (74 to 106) mg/dL Calcium 8.8 (8.4-10.2) mg/dL Magnesium (1.6-2.3) mg/dL Total Bilirubin 0.30 (0.2-1.3) mg/dL AST 23 (14-36) U/L ALT 16 (0-35) U/L Alkaline Phosphatase 89 (38-126) U/L Troponin I 0.033 (0.000-0.034) ng/mL NT-Pro-B Natriuret Pep (0-1800) pg/mL Serum Total Protein 6.5 (6.3-8.2) g/dL Albumin 3.9 (3.5-5.0) g/dL Urine Color STRAW (YELLOW) Urine Appearance CLEAR (CLEAR) Urine pH 6.0 (5-6) Ur Specific [place] 1.006 (1.005-1.025) Urine Protein NEGATIVE (Negative) Urine Ketones NEGATIVE (NEGATIVE) Urine Blood NEGATIVE (0-5) Jose/ul Urine Nitrite NEGATIVE (NEGATIVE) Urine Bilirubin NEGATIVE (NEGATIVE) Urine Urobilinogen NEGATIVE (0-1) mg/dL Ur Leukocyte Esterase TRACE (NEGATIVE) Urine WBC (Auto) 0-2 (0-5) /HPF Urine RBC (Auto) NONE (0-2) /HPF U Hyaline Cast (Auto) 3-5 (0-2) /LPF U Epithel Cells (Auto) NONE (FEW) /HPF Urine Bacteria (Auto) RARE (NEGATIVE) /HPF Urine Culture Reflexed NO (NO) Urine Glucose 50 (NEGATIVE) mg/dL SARS-CoV-2 (PCR) (NEGATIVE) 04/06/21 04/07/21 04/07/21 Range/Units 20:47 06:30 06:30 WBC 6.3 (4.0-10.5) K/mm3 RBC 2.27 L (4.1-5.4) M/mm3 Hgb 7.1 L (12.0-16.0) gm/dl Hct 21.7 L (35-47) % MCV 95.6 (78-100) fl MCH 31.3 (26-32) pg MCHC 32.7 (32-36) g/dl RDW 19.8 H (11.5-14.0) % Plt Count 243 (150-450) K/mm3 MPV 9.5 (7.5-11.0) fl Segmented Neutrophils 82 H (36.0-66.0) % Band Neutrophils 2 (0.0-2.0) % Lymphocytes (Manual) 8 L (24-44) % Monocytes (Manual) 6 (0.0-12.0) % Eosinophils (Manual) (0.00-3.0) % Basophils (Manual) (0.0-1.0) % Metamyelocytes 2 % Hypochromia 1+ Platelet Estimate NORMAL (NORMAL) RBC Morphology ABNORMAL Polychromasia 1+ Poikilocytosis 1+ Anisocytosis 1+ Sodium 130 L (137-145) mmol/L Potassium 3.5 (3.5-5.1) mmol/L Chloride 90 L (98-107) mmol/L Carbon Dioxide 27 (22-30) mmol/L Anion Gap 15.3 H (5-15) MEQ/L BUN 39 H (7-17) mg/dL Creatinine 1.79 H (0.52-1.04) mg/dL Estimated GFR 28.6 ML/MIN Glucose 141 H (74-106) mg/dL POC Glucometer 217 H (74 to 106) mg/dL Calcium 8.4 (8.4-10.2) mg/dL Magnesium (1.6-2.3) mg/dL Total Bilirubin 0.30 (0.2-1.3) mg/dL AST 18 (14-36) U/L ALT 13 (0-35) U/L Alkaline Phosphatase 76 (38-126) U/L Troponin I (0.000-0.034) ng/mL NT-Pro-B Natriuret Pep 13196 H (0-1800) pg/mL Serum Total Protein 5.8 L (6.3-8.2) g/dL Albumin 3.3 L (3.5-5.0) g/dL Urine Color (YELLOW) Urine Appearance (CLEAR) Urine pH (5-6) Ur Specific [place] (1.005-1.025) Urine Protein (Negative) Urine Ketones (NEGATIVE) Urine Blood (0-5) Jose/ul Urine Nitrite (NEGATIVE) Urine Bilirubin (NEGATIVE) Urine Urobilinogen (0-1) mg/dL Ur Leukocyte Esterase (NEGATIVE) Urine WBC (Auto) (0-5) /HPF Urine RBC (Auto) (0-2) /HPF U Hyaline Cast (Auto) (0-2) /LPF U Epithel Cells (Auto) (FEW) /HPF Urine Bacteria (Auto) (NEGATIVE) /HPF Urine Culture Reflexed (NO) Urine Glucose (NEGATIVE) mg/dL SARS-CoV-2 (PCR) (NEGATIVE) 04/07/21 Range/Units 07:13 WBC (4.0-10.5) K/mm3 RBC (4.1-5.4) M/mm3 Hgb (12.0-16.0) gm/dl Hct (35-47) % MCV (78-100) fl MCH (26-32) pg MCHC (32-36) g/dl RDW (11.5-14.0) % Plt Count (150-450) K/mm3 MPV (7.5-11.0) fl Segmented Neutrophils (36.0-66.0) % Band Neutrophils (0.0-2.0) % Lymphocytes (Manual) (24-44) % Monocytes (Manual) (0.0-12.0) % Eosinophils (Manual) (0.00-3.0) % Basophils (Manual) (0.0-1.0) % Metamyelocytes % Hypochromia Platelet Estimate (NORMAL) RBC Morphology Polychromasia Poikilocytosis Anisocytosis Sodium (137-145) mmol/L Potassium (3.5-5.1) mmol/L Chloride (98-107) mmol/L Carbon Dioxide (22-30) mmol/L Anion Gap (5-15) MEQ/L BUN (7-17) mg/dL Creatinine (0.52-1.04) mg/dL Estimated GFR ML/MIN Glucose (74-106) mg/dL POC Glucometer 129 H (74 to 106) mg/dL Calcium (8.4-10.2) mg/dL Magnesium (1.6-2.3) mg/dL Total Bilirubin (0.2-1.3) mg/dL AST (14-36) U/L ALT (0-35) U/L Alkaline Phosphatase (38-126) U/L Troponin I (0.000-0.034) ng/mL NT-Pro-B Natriuret Pep (0-1800) pg/mL Serum Total Protein (6.3-8.2) g/dL Albumin (3.5-5.0) g/dL Urine Color (YELLOW) Urine Appearance (CLEAR) Urine pH (5-6) Ur Specific [place] (1.005-1.025) Urine Protein (Negative) Urine Ketones (NEGATIVE) Urine Blood (0-5) Jose/ul Urine Nitrite (NEGATIVE) Urine Bilirubin (NEGATIVE) Urine Urobilinogen (0-1) mg/dL Ur Leukocyte Esterase (NEGATIVE) Urine WBC (Auto) (0-5) /HPF Urine RBC (Auto) (0-2) /HPF U Hyaline Cast (Auto) (0-2) /LPF U Epithel Cells (Auto) (FEW) /HPF Urine Bacteria (Auto) (NEGATIVE) /HPF Urine Culture Reflexed (NO) Urine Glucose (NEGATIVE) mg/dL SARS-CoV-2 (PCR) (NEGATIVE) Radiology Exams: Radiology Procedures Category Date Time Status CHEST 1 VIEW (PORTABLE) Stat Exams 04/06/21 16:34 Completed Assessment/Plan (1) Atrial fibrillation with RVR Current Visit: Yes Status: Resolved Assessment & Plan: reolved without the Cardiazem drip Code(s): I48.91 - UNSPECIFIED ATRIAL FIBRILLATION (2) CHF (congestive heart failure) Current Visit: Yes Status: Acute Qualifiers: Heart failure chronicity: acute on chronic Code(s): I50.9 - HEART FAILURE, UNSPECIFIED (3) Ulcer of left lower leg Current Visit: Yes Status: Chronic Qualifiers: Non-pressure ulcer stage: with fat layer exposed Qualified Code(s): L97.922 - Non-pressure chronic ulcer of unspecified part of left lower leg with fat layer exposed Assessment & Plan: Hx MRSA Code(s): L97.929 - NON-PRS CHRONIC ULC UNSP PRT OF L LOW LEG W UNSP SEVERITY (4) History of MRSA infection Current Visit: Yes Status: Acute Code(s): Z86.14 - PERSONAL HISTORY OF METHICILLIN RESIS STAPH INFECTION (5) Ankle pain Current Visit: Yes Status: Acute Assessment & Plan: uric acid pending,Hx gout Code(s): M25.579 - PAIN IN UNSPECIFIED ANKLE AND JOINTS OF UNSPECIFIED FOOT
[2021-04-07 12:52] LABS: ABO TYPING O; Antibody Screen NEGATIVE (NEGATIVE); RH TYPING NEGATIVE
[2021-04-07 12:55] LABS: CROSS MATCH (PRBC) COMPATIBLE (COMPATIBLE)
[2021-04-07] MEDS ORDERED: Sodium Chloride 0.9% 500 ML 500 ML IV SCH (13:15)
[2021-04-07 18:31] LABS: Hematocrit 27.8 % (35-47); Hemoglobin 9.1 gm/dl (12.0-16.0)
[2021-04-07] MEDS: Levaquin 250MG/50ML D5W 250 MG/50 ML BAG IV SCH (21:06)
[2021-04-08] MEDS: TYLENOL EXTRA STRENGTH 500 MG PO PRN (01:49)
[2021-04-08] MEDS: Lasix 40 MG/4 ML IV SCH (05:18)
[2021-04-08 06:56] LABS: Risk Ratio 5.9; Uric Acid 13.6 mg/dL (2.6-6.0)
[2021-04-08] MEDS: NORCO 5/325 MG PO PRN ×2 (08:15→21:02)
[2021-04-08] MEDS: HUMALOG SQ PRN ×2 (08:16→21:04)
[2021-04-08] MEDS: Zaroxolyn 2.5 MG PO SCH (10:11)
[2021-04-08] MEDS: Januvia 50 MG PO SCH (10:11)
[2021-04-08] MEDS: Klor Con 10 MEQ PO SCH ×2 (10:12→21:02)
[2021-04-08] MEDS: Lopressor 50 MG PO SCH ×2 (10:12→21:02)
[2021-04-08] MEDS: ENOXAPARIN SODIUM SQ SCH (10:12)
[2021-04-08] MEDS: SODIUM BICARBONATE PO SCH (10:12)
[2021-04-08] MEDS: Apresoline 25 MG TABLET PO SCH ×3 (10:12→21:29)
[2021-04-08 12:31] LABS: Hematocrit 29.2 % (35-47); Hemoglobin 9.5 gm/dl (12.0-16.0); Mean Cell Volume 93.6 fl (78-100); Mean Corpuscular Hemoglobin 30.4 pg (26-32); Mean Corpuscular Hgb Concent. 32.5 g/dl (32-36); Mean Platelet Volume 9.7 fl (7.5-11.0); Platelet Count 302 K/mm3 (150-450); Red Blood Count 3.12 M/mm3 (4.1-5.4); Red Cell Distribution Width 18.9 % (11.5-14.0); White Blood Count 8.5 K/mm3 (4.0-10.5)
[2021-04-08 12:39] LABS: ALBUMIN 3.7 g/dL (3.5-5.0); ANION GAP 17.3 MEQ/L (5-15); BILIRUBIN,TOTAL 0.3 mg/dL (0.2-1.3); Creatinine 1 1.85 mg/dL (0.52-1.04); EST GLOMERULAR FILTRATION RATE 27.5 ML/MIN; Potassium 3.4 mmol/L (3.5-5.1); Total Protein 6.3 g/dL (6.3-8.2)
--- NOTE | 2021-04-08 13:15 | PCM.NOTE ---
Date and Time: 04/08/21 1250 Subjective Assessment: c/o fatigue and forgetfulness,"stomach is swelling" - Review of Systems Constitutional: Fatigue, Lethargy Respiratory: No Symptoms Cardiac: No Symptoms Abdominal/Gastrointestinal: Other ("swollen belly like ") Genitourinary Symptoms: No Symptoms (appetite good,no N/V/D) Neurological: Other (memory loss,forgetfull repeating herself) Objective Exam General Appearance: mild distress (anxious,teary ,fearful daughter at bedside) Skin Exam: pale (dusky) Wound Assessment: Skin/Wound Assessment Wound/Incision Assessment Start: 04/06/21 17:20 Text: Status: Active Freq: Q6H Protocol: Document 04/08/21 07:42 MW (Rec: 04/08/21 07:55 MW [id number]) Wound/Incision Assessment Right Arm Wound Assessment Shift Assessment Wound Type ULCERATIONS Wound Stage Non Pressure Wound Comment Multiple scabbed areas noted to to RUE. No drainage noted. Left Lower Calf Wound Assessment Shift Assessment Wound Type ULCERATION Wound Stage Non Pressure Wound Drainage Amount Minimal Drainage Description Purulent Drainage Odor None/Absent General Appearance Open to air,Draining Length (cm) (cm) 2 Width (cm) (cm) 1 Wound Bed Greatest Portion Yellow (Slough) Wound Bed Lesser Portion Pale Odum Surrounding Tissue Odum Comment Pictures on chart. Wound Photo Photo Taken Yes Respiratory Exam: diminished breath sounds Cardiovascular Exam: regular rate/rhythm (see tele) Gastrointestinal/Abdomen Exam: distention (nontender) OBJECTIVE DATA Vital Signs: Vital Signs - 24 hr Temp Pulse Resp BP Pulse Ox 04/08/21 11:54 98.4 F 75 16 104/51 96 04/08/21 08:00 98.2 F 73 16 125/75 98 04/08/21 04:00 97 F 79 18 126/71 96 04/07/21 23:50 98.9 F 83 20 130/67 97 04/07/21 20:03 98.4 F 81 18 126/60 97 04/07/21 16:00 99.5 F 90 16 116/67 99 Pain Assessment - Last Documented Pain Intensity 0 Pain Scale Used 0-10 Pain Scale Intake and Output: Intake & Output 04/06/21 04/07/21 04/08/21 04/09/21 11:59 11:59 11:59 11:59 Intake Total 440 840 Output Total 1200 1600 Balance -760 -760 Weight 60.5 kg 60.3 kg Lab Results: Lab Results-Last 24 Hours 04/07/21 04/07/21 04/07/21 Range/Units 10:15 10:15 10:15 Hgb (12.0-16.0) gm/dl Hct (35-47) % POC Glucometer (74 to 106) mg/dL Hemoglobin A1c (4.5-6.0) % Uric Acid (2.6-6.0) mg/dL NT-Pro-B Natriuret Pep (0-1800) pg/mL Triglycerides (30-150) mg/dL Cholesterol (50-200) mg/dL LDL Cholesterol (30-100) mg/dL HDL Cholesterol (40-60) mg/dL Heart Disease Risk Ratio Vitamin B12 (239-931) pg/mL ABO Group O Rh Factor NEGATIVE Antibody Screen NEGATIVE (NEGATIVE) Crossmatch COMPATIBLE COMPATIBLE (COMPATIBLE) 04/07/21 04/07/21 04/07/21 Range/Units 16:05 18:29 21:10 Hgb 9.1 L D (12.0-16.0) gm/dl Hct 27.8 L (35-47) % POC Glucometer 172 H 211 H (74 to 106) mg/dL Hemoglobin A1c (4.5-6.0) % Uric Acid (2.6-6.0) mg/dL NT-Pro-B Natriuret Pep (0-1800) pg/mL Triglycerides (30-150) mg/dL Cholesterol (50-200) mg/dL LDL Cholesterol (30-100) mg/dL HDL Cholesterol (40-60) mg/dL Heart Disease Risk Ratio Vitamin B12 (239-931) pg/mL ABO Group Rh Factor Antibody Screen (NEGATIVE) Crossmatch (COMPATIBLE) 04/08/21 04/08/21 04/08/21 Range/Units 06:00 06:00 06:00 Hgb (12.0-16.0) gm/dl Hct (35-47) % POC Glucometer (74 to 106) mg/dL Hemoglobin A1c 7.78 H (4.5-6.0) % Uric Acid 13.6 H (2.6-6.0) mg/dL NT-Pro-B Natriuret Pep 76823 H (0-1800) pg/mL Triglycerides 189 H (30-150) mg/dL Cholesterol 165 (50-200) mg/dL LDL Cholesterol 84 (30-100) mg/dL HDL Cholesterol 28 L (40-60) mg/dL Heart Disease Risk Ratio 5.9 Vitamin B12 (239-931) pg/mL ABO Group Rh Factor Antibody Screen (NEGATIVE) Crossmatch (COMPATIBLE) 04/08/21 04/08/21 04/08/21 Range/Units 06:00 07:11 11:44 Hgb (12.0-16.0) gm/dl Hct (35-47) % POC Glucometer 152 H 165 H (74 to 106) mg/dL Hemoglobin A1c (4.5-6.0) % Uric Acid (2.6-6.0) mg/dL NT-Pro-B Natriuret Pep (0-1800) pg/mL Triglycerides (30-150) mg/dL Cholesterol (50-200) mg/dL LDL Cholesterol (30-100) mg/dL HDL Cholesterol (40-60) mg/dL Heart Disease Risk Ratio Vitamin B12 649 (239-931) pg/mL ABO Group Rh Factor Antibody Screen (NEGATIVE) Crossmatch (COMPATIBLE) Radiology Exams: Radiology Procedures Category Date Time Status CHEST 1 VIEW (PORTABLE) Stat Exams 04/06/21 16:34 Completed Multi-Disciplinary Progress Notes: Multi-Disciplinary Progress Notes 04/07/21 18:40 Case Management Note by Marlene Farley DISCHARGE PLAN REVIEWED PER CHART. NORMALLY PATIENT LIVES AT HOME WITH DAUGHTER/POA & LAY CAREGIVER, TENISHA MCCLELLAND [phone]. SHE IS INDEPENDENT WITH ORAL CARE, FEEDING AFTER SET UP, AND TOILETING ON BEDSIDE TOILET. SHE NEEDS ASSIST OF ONE WITH ALL OTHER ADL'S. SHE HAS A WALKER AND A BEDSIDE COMMODE AT HOME. RN NOTED THAT PATIENT MAY NEED REHAB AT A LTC FACILITY ON D/C. WILL CONTINUE TO MONITOR FOR ALL D/C NEEDS. Initialized on 04/07/21 18:40 - END OF NOTE Assessment/Plan (1) CHF (congestive heart failure) Current Visit: Yes Status: Chronic Qualifiers: Heart failure chronicity: acute on chronic Assessment & Plan: IV lasix ,ECHO Code(s): I50.9 - HEART FAILURE, UNSPECIFIED (2) Anemia Current Visit: Yes Status: Acute Qualifiers: Anemia type: unspecified type Qualified Code(s): D64.9 - Anemia, unspecified Assessment & Plan: HGB=7.9 up to 9.1 after 1 unit PRBCs Code(s): D64.9 - ANEMIA, UNSPECIFIED (3) Memory change Current Visit: Yes Status: Acute Code(s): R41.3 - OTHER AMNESIA (4) Paroxysmal A-fib Current Visit: Yes Status: Acute Assessment & Plan: sinus rythum currently,afib rvr on admission Code(s): I48.0 - PAROXYSMAL ATRIAL FIBRILLATION
[2021-04-08] MEDS ORDERED: Lasix 40 MG/4 ML IV ONE ×2 (14:30→20:00)
[2021-04-08] MEDS: solu-MEDROL 60 MG, Sterile H2O 10 ml 2 ML IV SCH ×4 (14:55→21:01)
[2021-04-08 15:54] LABS: ANISOCYTOSIS 1+; Lymphocytes 15 % (24-44); Monocyte 4 % (0.0-12.0); Neutrophils 81 % (36.0-66.0); Platelet Estimate NORMAL (NORMAL); Poikilocytosis 1+; Polychromasia 1+; Total Cells Counted 100
[2021-04-08] MEDS: Levaquin 250MG/50ML D5W 250 MG/50 ML BAG IV SCH (21:01)
[2021-04-08] MEDS ORDERED: solu-MEDROL 40 MG, Sterile H2O 10 ml 2 ML IV SCH ×2 (23:25)
[2021-04-08] MEDS ORDERED: xanAX 0.5 MG ONE (23:26)
[2021-04-08] MEDS: xanAX 0.5 MG PO ONE ×2 (23:27→23:30)
[2021-04-09] MEDS: NORCO 5/325 MG PO PRN ×2 (01:08→22:21)
[2021-04-09 05:32] LABS: Hematocrit 27.4 % (35-47); Hemoglobin 9.1 gm/dl (12.0-16.0); Mean Cell Volume 92.9 fl (78-100); Mean Corpuscular Hemoglobin 30.8 pg (26-32); Mean Corpuscular Hgb Concent. 33.2 g/dl (32-36); Platelet Count 264 K/mm3 (150-450); Red Blood Count 2.95 M/mm3 (4.1-5.4); Red Cell Distribution Width 18.5 % (11.5-14.0); White Blood Count 8.8 K/mm3 (4.0-10.5)
[2021-04-09] MEDS: solu-MEDROL 40 MG IV SCH ×3 (05:56→21:08)
[2021-04-09 06:18] LABS: ALBUMIN 3.6 g/dL (3.5-5.0); ANION GAP 16.1 MEQ/L (5-15); BILIRUBIN,TOTAL 0.2 mg/dL (0.2-1.3); Calcium 8.8 mg/dL (8.4-10.2); Creatinine 1 1.88 mg/dL (0.52-1.04); Potassium 3.2 mmol/L (3.5-5.1); Total Protein 6.2 g/dL (6.3-8.2)
[2021-04-09 07:09] LABS: ANISOCYTOSIS 1+; BAND 4 % (0.0-2.0); Hypochromia 1+; Lymphocytes 7 % (24-44); Microcytosis 1+; Monocyte 3 % (0.0-12.0); Neutrophils 86 % (36.0-66.0); Total Cells Counted 100; Toxic Granulation 1+
[2021-04-09 07:10] LABS: Platelet Estimate NORMAL (NORMAL); Poikilocytosis 1+; Schistocytes 1+
[2021-04-09] MEDS: HUMALOG SQ PRN ×4 (08:18→22:21)
--- NOTE | 2021-04-09 08:39 | PCM.NOTE ---
Date and Time: 04/09/21 0836 patient is confused today, answers most questions appropriately but slow to respond and forgetful of details she normally knows very well (like my connection with her family) she is eating breakfast and in no distress Objective Exam General Appearance: no apparent distress Neurologic Exam: alert, cooperative, No oriented x 3 Skin Exam: normal color, warm, dry Wound Assessment: Skin/Wound Assessment Wound/Incision Assessment Start: 04/06/21 17:20 Text: Status: Active Freq: Q6H Protocol: Document 04/09/21 08:00 AWG (Rec: 04/09/21 08:15 AWG [id number]) Wound/Incision Assessment Right Arm Wound Assessment Shift Assessment Wound Type ULCERATIONS Wound Stage Non Pressure Wound Comment Multiple scabbed areas noted to to RUE. No drainage noted. Remains true Left Lower Calf Wound Assessment Shift Assessment Wound Type ULCERATION Wound Stage Non Pressure Wound Drainage Amount Minimal Drainage Odor None/Absent General Appearance Open to air,Draining Length (cm) (cm) 2 Width (cm) (cm) 1 Wound Bed Greatest Portion Yellow (Slough) Wound Bed Lesser Portion Pale [place] Surrounding Tissue [place] Comment Pictures on chart. Remains true Wound Photo Photo Taken Yes Respiratory Exam: normal breath sounds, lungs clear, No respiratory distress Cardiovascular Exam: regular rate/rhythm, normal heart sounds Gastrointestinal/Abdomen Exam: soft, No tenderness, No mass Extremity Exam: pedal edema OBJECTIVE DATA Vital Signs: Vital Signs - 24 hr Temp Pulse Resp BP Pulse Ox 04/09/21 08:00 98.0 F 78 16 120/72 98 04/09/21 04:00 78 18 119/61 97 04/08/21 23:48 98.0 F 79 18 114/62 98 04/08/21 19:57 98.6 F 82 20 115/53 96 04/08/21 16:00 98.9 F 78 16 133/71 97 04/08/21 11:54 98.4 F 75 16 104/51 96 Pain Assessment - Last Documented Pain Intensity 0 Pain Scale Used 0-10 Pain Scale Intake and Output: Intake & Output 04/06/21 04/07/21 04/08/21 04/09/21 11:59 11:59 11:59 11:59 Intake Total 627 175 9876 Output Total 1200 1600 1800 Balance -158 -410 -103 Weight 60.5 kg 60.3 kg 58.9 kg Lab Results: Lab Results-Last 24 Hours 04/08/21 04/08/21 04/08/21 Range/Units 06:00 06:00 06:00 WBC 8.5 (4.0-10.5) K/mm3 RBC 3.12 L (4.1-5.4) M/mm3 Hgb 9.5 L (12.0-16.0) gm/dl Hct 29.2 L (35-47) % MCV 93.6 (78-100) fl MCH 30.4 (26-32) pg MCHC 32.5 (32-36) g/dl RDW 18.9 H (11.5-14.0) % Plt Count 302 (150-450) K/mm3 MPV 9.7 (7.5-11.0) fl Segmented Neutrophils 81 H (36.0-66.0) % Band Neutrophils (0.0-2.0) % Lymphocytes (Manual) 15 L (24-44) % Monocytes (Manual) 4 (0.0-12.0) % Hypochromia Toxic Granulation Platelet Estimate NORMAL (NORMAL) RBC Morphology ABNORMAL Polychromasia 1+ Poikilocytosis 1+ Anisocytosis 1+ Microcytosis Schistocytes Sodium 131 L (137-145) mmol/L Potassium 3.4 L (3.5-5.1) mmol/L Chloride 90 L (98-107) mmol/L Carbon Dioxide 28 (22-30) mmol/L Anion Gap 17.3 H (5-15) MEQ/L BUN 45 H (7-17) mg/dL Creatinine 1.85 H (0.52-1.04) mg/dL Estimated GFR 27.5 ML/MIN Glucose 159 H (74-106) mg/dL POC Glucometer (74 to 106) mg/dL Uric Acid (2.6-6.0) mg/dL Calcium 9.0 (8.4-10.2) mg/dL Total Bilirubin 0.30 (0.2-1.3) mg/dL AST 31 (14-36) U/L ALT 18 (0-35) U/L Alkaline Phosphatase 105 (38-126) U/L NT-Pro-B Natriuret Pep (0-1800) pg/mL Serum Total Protein 6.3 (6.3-8.2) g/dL Albumin 3.7 (3.5-5.0) g/dL Vitamin B12 649 (239-931) pg/mL 04/08/21 04/08/21 04/08/21 Range/Units 11:44 16:14 20:35 WBC (4.0-10.5) K/mm3 RBC (4.1-5.4) M/mm3 Hgb (12.0-16.0) gm/dl Hct (35-47) % MCV (78-100) fl MCH (26-32) pg MCHC (32-36) g/dl RDW (11.5-14.0) % Plt Count (150-450) K/mm3 MPV (7.5-11.0) fl Segmented Neutrophils (36.0-66.0) % Band Neutrophils (0.0-2.0) % Lymphocytes (Manual) (24-44) % Monocytes (Manual) (0.0-12.0) % Hypochromia Toxic Granulation Platelet Estimate (NORMAL) RBC Morphology Polychromasia Poikilocytosis Anisocytosis Microcytosis Schistocytes Sodium (137-145) mmol/L Potassium (3.5-5.1) mmol/L Chloride (98-107) mmol/L Carbon Dioxide (22-30) mmol/L Anion Gap (5-15) MEQ/L BUN (7-17) mg/dL Creatinine (0.52-1.04) mg/dL Estimated GFR ML/MIN Glucose (74-106) mg/dL POC Glucometer 165 H 141 H 302 H (74 to 106) mg/dL Uric Acid (2.6-6.0) mg/dL Calcium (8.4-10.2) mg/dL Total Bilirubin (0.2-1.3) mg/dL AST (14-36) U/L ALT (0-35) U/L Alkaline Phosphatase (38-126) U/L NT-Pro-B Natriuret Pep (0-1800) pg/mL Serum Total Protein (6.3-8.2) g/dL Albumin (3.5-5.0) g/dL Vitamin B12 (239-931) pg/mL 04/09/21 04/09/21 04/09/21 Range/Units 04:40 04:40 07:35 WBC 8.8 (4.0-10.5) K/mm3 RBC 2.95 L (4.1-5.4) M/mm3 Hgb 9.1 L (12.0-16.0) gm/dl Hct 27.4 L (35-47) % MCV 92.9 (78-100) fl MCH 30.8 (26-32) pg MCHC 33.2 (32-36) g/dl RDW 18.5 H (11.5-14.0) % Plt Count 264 (150-450) K/mm3 MPV 10.0 (7.5-11.0) fl Segmented Neutrophils 86 H (36.0-66.0) % Band Neutrophils 4 H (0.0-2.0) % Lymphocytes (Manual) 7 L (24-44) % Monocytes (Manual) 3 (0.0-12.0) % Hypochromia 1+ Toxic Granulation 1+ Platelet Estimate NORMAL (NORMAL) RBC Morphology ABNORMAL Polychromasia Poikilocytosis 1+ Anisocytosis 1+ Microcytosis 1+ Schistocytes 1+ Sodium 130 L (137-145) mmol/L Potassium 3.2 L (3.5-5.1) mmol/L Chloride 86 L (98-107) mmol/L Carbon Dioxide 30 (22-30) mmol/L Anion Gap 16.1 H (5-15) MEQ/L BUN 52 H (7-17) mg/dL Creatinine 1.88 H (0.52-1.04) mg/dL Estimated GFR 27.0 ML/MIN Glucose 290 H (74-106) mg/dL POC Glucometer 234 H (74 to 106) mg/dL Uric Acid 14.0 H (2.6-6.0) mg/dL Calcium 8.8 (8.4-10.2) mg/dL Total Bilirubin 0.20 (0.2-1.3) mg/dL AST 21 (14-36) U/L ALT 15 (0-35) U/L Alkaline Phosphatase 102 (38-126) U/L NT-Pro-B Natriuret Pep 62595 H (0-1800) pg/mL Serum Total Protein 6.2 L (6.3-8.2) g/dL Albumin 3.6 (3.5-5.0) g/dL Vitamin B12 (239-931) pg/mL Radiology Exams: Radiology Procedures Category Date Time Status ECHO W/2D AND DOPPLER [US] Routine Exams 04/09/21 Ordered Assessment/Plan (1) Ulcer of left lower leg Current Visit: Yes Status: Chronic Qualifiers: Non-pressure ulcer stage: with fat layer exposed Qualified Code(s): L97.922 - Non-pressure chronic ulcer of unspecified part of left lower leg with fat layer exposed Code(s): L97.929 - NON-PRS CHRONIC ULC UNSP PRT OF L LOW LEG W UNSP SEVERITY (2) Acute exacerbation of CHF (congestive heart failure) Current Visit: No Status: Acute Code(s): I50.9 - HEART FAILURE, UNSPECIFIED (3) Acute gout Current Visit: No Status: Acute Code(s): M10.9 - GOUT, UNSPECIFIED (4) DM2 (diabetes mellitus, type 2) Current Visit: No Status: Chronic Qualifiers: Diabetes mellitus fci insulin use: unspecified fci insulin use status Diabetes mellitus complication detail: with foot ulcer
[2021-04-09] MEDS ORDERED: K-LYTE 25 MEQ PO ONE (08:40)
[2021-04-09] MEDS: Apresoline 25 MG TABLET PO SCH ×3 (10:14→21:04)
[2021-04-09] MEDS: ENOXAPARIN SODIUM SQ SCH (10:15)
[2021-04-09] MEDS: Januvia 50 MG PO SCH (10:15)
[2021-04-09] MEDS: Lasix 40 MG/4 ML IV SCH ×2 (10:16→16:31)
[2021-04-09] MEDS: SODIUM BICARBONATE PO SCH (10:16)
[2021-04-09] MEDS: Klor Con 10 MEQ PO SCH ×2 (10:16→21:04)
[2021-04-09] MEDS: Lopressor 50 MG PO SCH ×2 (10:16→21:04)
[2021-04-09] MEDS: Zaroxolyn 2.5 MG PO SCH (10:17)
[2021-04-09] MEDS: TYLENOL EXTRA STRENGTH 500 MG PO PRN (10:19)
[2021-04-09] MEDS: BENADRYL 25 MG CAPSULE PO PRN ×2 (15:00→21:04)
[2021-04-09] MEDS ORDERED: Lasix 40 MG/4 ML IV ONE (20:00)
[2021-04-09] MEDS: Levaquin 250MG/50ML D5W 250 MG/50 ML BAG IV SCH (21:08)
[2021-04-09] MEDS: xanAX 0.25 MG PO PRN (22:21)
[2021-04-10 05:16] LABS: Hematocrit 25.8 % (35-47); Hemoglobin 8.3 gm/dl (12.0-16.0); Mean Cell Volume 95.2 fl (78-100); Mean Corpuscular Hemoglobin 30.6 pg (26-32); Mean Corpuscular Hgb Concent. 32.2 g/dl (32-36); Platelet Count 256 K/mm3 (150-450); Red Blood Count 2.71 M/mm3 (4.1-5.4); Red Cell Distribution Width 18.5 % (11.5-14.0)
[2021-04-10 06:06] LABS: ALBUMIN 3.4 g/dL (3.5-5.0); ALKALINE PHOSPHATASE 89 U/L (38-126); ANION GAP 17.1 MEQ/L (5-15); BILIRUBIN,TOTAL < 0.10 mg/dL (0.2-1.3); BLOOD UREA NITROGEN 63 mg/dL (7-17); CHLORIDE 82 mmol/L (98-107); Calcium 8.6 mg/dL (8.4-10.2); Carbon Dioxide 33 mmol/L (22-30); Creatinine 1 2.18 mg/dL (0.52-1.04); EST GLOMERULAR FILTRATION RATE 22.8 ML/MIN; Glucose 499 mg/dL (74-106); NT PRO BNP 42400 pg/mL (0-1800); SGOT/AST 22 U/L (14-36); SGPT/ALT 17 U/L (0-35); SODIUM 128 mmol/L (137-145); Total Protein 5.8 g/dL (6.3-8.2); Uric Acid 14.2 mg/dL (2.6-6.0)
[2021-04-10 06:12] LABS: BAND 3 % (0.0-2.0); Lymphocytes 7 % (24-44); Monocyte 2 % (0.0-12.0); Neutrophils 88 % (36.0-66.0); Platelet Estimate NORMAL (NORMAL); Total Cells Counted 100
[2021-04-10] MEDS: HUMALOG SQ PRN ×5 (06:19→21:17)
[2021-04-10] MEDS: solu-MEDROL 40 MG IV SCH ×3 (06:19→21:17)
--- NOTE | 2021-04-10 08:53 | PCM.NOTE ---
Date and Time: 04/10/2148 Subjective Assessment: Pt is oriented to place and time this morning. Tells me how Dr. Milan is related to her. Says she is doing pretty good for 85. - Review of Systems Constitutional: No Fever Abdominal/Gastrointestinal: No Vomiting Objective Exam General Appearance: no apparent distress, alert Neurologic Exam: oriented x 3, cooperative Skin Exam: normal color, warm, dry, No rash Wound Assessment: Skin/Wound Assessment Wound/Incision Assessment Start: 04/06/21 17:20 Text: Status: Active Freq: Q6H Protocol: Document 04/10/21 08:00 AWG (Rec: 04/10/21 08:18 AWG [id number]) Wound/Incision Assessment Right Arm Wound Assessment Shift Assessment Wound Type ULCERATIONS Wound Stage Non Pressure Wound Dressing Status Dry & Intact Drainage Amount None Comment DRESSINGS IN PLACE WITH SLEEVE Left Lower Calf Wound Assessment Shift Assessment Wound Type ULCERATION Wound Stage Non Pressure Wound Drainage Amount None Drainage Odor None/Absent General Appearance Open to air Length (cm) (cm) 2 Width (cm) (cm) 1 Wound Bed Greatest Portion Yellow (Slough) Wound Bed Lesser Portion Pale [place] Surrounding Tissue [place] Comment OPEN TO AIR Wound Photo Photo Taken Yes Eye Exam: eyes nml inspection Ears, Nose, Throat Exam: moist mucous membranes Neck Exam: normal inspection Respiratory Exam: diminished breath sounds (fair air exchange), No crackles/rales, No rhonchi, No wheezing Cardiovascular Exam: regular rate/rhythm, normal heart sounds, No murmur Gastrointestinal/Abdomen Exam: soft, normal bowel sounds, No tenderness, No distention, No mass, No guarding, No rebound Extremity Exam: No pedal edema, No swelling Back Exam: normal inspection, No rash OBJECTIVE DATA Vital Signs: Vital Signs - 24 hr Temp Pulse Resp BP BP Pulse Ox 04/10/21 08:00 97.6 F 81 14 148/78 100 04/10/21 04:00 97.6 F 82 18 138/76 97 04/10/21 00:00 98.2 F 71 20 133/69 97 04/09/21 19:35 98.0 F 85 18 110/71 97 04/09/21 16:00 98.1 F 63 16 117/60 98 04/09/21 12:00 98.1 F 56 L 16 100/53 100 Pain Assessment - Last Documented Pain Intensity 0 Pain Scale Used 0-10 Pain Scale Intake and Output: Intake & Output 04/07/21 04/08/21 04/09/21 04/10/21 11:59 11:59 11:59 11:59 Intake Total 022 932 9522 840 Output Total 1200 1600 1800 900 Balance -760 -760 -500 -60 Weight 60.5 kg 60.3 kg 58.9 kg 60.6 kg Lab Results: Lab Results-Last 24 Hours 04/09/21 04/09/21 04/09/21 Range/Units 11:37 16:40 20:41 WBC (4.0-10.5) K/mm3 RBC (4.1-5.4) M/mm3 Hgb (12.0-16.0) gm/dl Hct (35-47) % MCV (78-100) fl MCH (26-32) pg MCHC (32-36) g/dl RDW (11.5-14.0) % Plt Count (150-450) K/mm3 MPV (7.5-11.0) fl Segmented Neutrophils (36.0-66.0) % Band Neutrophils (0.0-2.0) % Lymphocytes (Manual) (24-44) % Monocytes (Manual) (0.0-12.0) % Platelet Estimate (NORMAL) RBC Morphology Sodium (137-145) mmol/L Potassium (3.5-5.1) mmol/L Chloride (98-107) mmol/L Carbon Dioxide (22-30) mmol/L Anion Gap (5-15) MEQ/L BUN (7-17) mg/dL Creatinine (0.52-1.04) mg/dL Estimated GFR ML/MIN Glucose (74-106) mg/dL POC Glucometer 197 H 223 H 294 H (74 to 106) mg/dL Uric Acid (2.6-6.0) mg/dL Calcium (8.4-10.2) mg/dL Total Bilirubin (0.2-1.3) mg/dL AST (14-36) U/L ALT (0-35) U/L Alkaline Phosphatase (38-126) U/L NT-Pro-B Natriuret Pep (0-1800) pg/mL Serum Total Protein (6.3-8.2) g/dL Albumin (3.5-5.0) g/dL 04/10/21 04/10/21 04/10/21 Range/Units 04:45 05:00 08:15 WBC 8.0 (4.0-10.5) K/mm3 RBC 2.71 L (4.1-5.4) M/mm3 Hgb 8.3 L (12.0-16.0) gm/dl Hct 25.8 L (35-47) % MCV 95.2 (78-100) fl MCH 30.6 (26-32) pg MCHC 32.2 (32-36) g/dl RDW 18.5 H (11.5-14.0) % Plt Count 256 (150-450) K/mm3 MPV 10.0 (7.5-11.0) fl Segmented Neutrophils 88 H (36.0-66.0) % Band Neutrophils 3 H (0.0-2.0) % Lymphocytes (Manual) 7 L (24-44) % Monocytes (Manual) 2 (0.0-12.0) % Platelet Estimate NORMAL (NORMAL) RBC Morphology NORMAL Sodium 128 L (137-145) mmol/L Potassium 4.0 D (3.5-5.1) mmol/L Chloride 82 L (98-107) mmol/L Carbon Dioxide 33 H (22-30) mmol/L Anion Gap 17.1 H (5-15) MEQ/L BUN 63 H (7-17) mg/dL Creatinine 2.18 H (0.52-1.04) mg/dL Estimated GFR 22.8 ML/MIN Glucose 499 H (74-106) mg/dL POC Glucometer 366 H (74 to 106) mg/dL Uric Acid 14.2 H (2.6-6.0) mg/dL Calcium 8.6 (8.4-10.2) mg/dL Total Bilirubin < 0.10 L (0.2-1.3) mg/dL AST 22 (14-36) U/L ALT 17 (0-35) U/L Alkaline Phosphatase 89 (38-126) U/L NT-Pro-B Natriuret Pep 23052 H (0-1800) pg/mL Serum Total Protein 5.8 L (6.3-8.2) g/dL Albumin 3.4 L (3.5-5.0) g/dL Radiology Exams: Radiology Procedures Category Date Time Status ECHO W/2D AND DOPPLER [US] Routine Exams 04/09/21 10:15 Taken Multi-Disciplinary Progress Notes: Multi-Disciplinary Progress Notes 04/09/21 12:44 Case Management Note by Emily Evans SPOKE WITH [facility] THEY ARE WORKING ON PRE-CERTIFICATION FOR ACCEPTANCE. THEY HAVE STARTED THIS PREVIOUSLY, PT FAMILY REACHED OUT TO THEM PRIOR TO HOSPITAL ADMISSION. THEY WILL DO [facility] PAPERWORK THERE. WILL PHONE US WITH ANY UPDATES ON ACCEPTANCE. Initialized on 04/09/21 12:44 - END OF NOTE Assessment/Plan (1) Acute exacerbation of CHF (congestive heart failure) Current Visit: No Status: Acute Assessment & Plan: Changed her 40mg lasix IV BID to 20mg IV BID due to increasing renal failure. Discussed briefly with pt. Recheck labs in a.m. Code(s): I50.9 - HEART FAILURE, UNSPECIFIED (2) Ulcer of left lower leg Current Visit: Yes Status: Chronic Qualifiers: Non-pressure ulcer stage: with fat layer exposed Qualified Code(s): L97.922 - Non-pressure chronic ulcer of unspecified part of left lower leg with fat layer exposed Code(s): L97.929 - NON-PRS CHRONIC ULC UNSP PRT OF L LOW LEG W UNSP SEVERITY (3) Acute on chronic renal failure Current Visit: Yes Status: Acute Qualifiers: Chronic kidney disease stage: stage 4 (severe) Code(s): N17.9 - ACUTE KIDNEY FAILURE, UNSPECIFIED; N18.9 - CHRONIC KIDNEY DISEASE, UNSPECIFIED (4) Gout Current Visit: Yes Status: Chronic Assessment & Plan: uric acid has been increasing - start allopurinol. 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 transplanted heart: hoh heart Associated angina: without angina Qualified Code(s): I25.810 - Atherosclerosis of coronary artery bypass graft(s) without angina pectoris Code(s): I25.810 - ATHEROSCLEROSIS OF CABG W/O ANGINA PECTORIS (7) DM2 (diabetes mellitus, type 2) Current Visit: No Status: Chronic Qualifiers: Diabetes mellitus oysterman insulin use: unspecified usp insulin use status Diabetes mellitus complication detail: with foot ulcer Assessment & Plan: BS elevated this morning to 499, then after SS insulin was still in the 300s. Using more sliding scale.
[2021-04-10] MEDS: Lopressor 50 MG PO SCH ×2 (09:43→21:17)
[2021-04-10] MEDS: Klor Con 10 MEQ PO SCH ×2 (09:43→21:16)
[2021-04-10] MEDS: Apresoline 25 MG TABLET PO SCH ×3 (09:43→21:17)
[2021-04-10] MEDS: Januvia 50 MG PO SCH (09:43)
[2021-04-10] MEDS: Zaroxolyn 2.5 MG PO SCH (09:43)
[2021-04-10] MEDS: ZYLOPRIM 100 MG PO SCH (09:43)
[2021-04-10] MEDS: ENOXAPARIN SODIUM SQ SCH (09:44)
[2021-04-10] MEDS: SODIUM BICARBONATE PO SCH (09:44)
[2021-04-10] MEDS: Lasix 40 MG/4 ML IV SCH ×2 (09:44→16:36)
[2021-04-10] MEDS: Levaquin 250MG/50ML D5W 250 MG/50 ML BAG IV SCH (21:17)
[2021-04-10] MEDS: xanAX 0.25 MG PO PRN (21:17)
[2021-04-10] MEDS: TYLENOL EXTRA STRENGTH 500 MG PO PRN (21:17)
[2021-04-11 05:15] LABS: Hematocrit 25.6 % (35-47); Hemoglobin 8.2 gm/dl (12.0-16.0); Mean Cell Volume 95.9 fl (78-100); Mean Corpuscular Hemoglobin 30.7 pg (26-32); Mean Platelet Volume 9.7 fl (7.5-11.0); Platelet Count 260 K/mm3 (150-450); Red Blood Count 2.67 M/mm3 (4.1-5.4); Red Cell Distribution Width 18.2 % (11.5-14.0); White Blood Count 9.7 K/mm3 (4.0-10.5)
[2021-04-11 05:38] LABS: ALBUMIN 3.4 g/dL (3.5-5.0); ALKALINE PHOSPHATASE 86 U/L (38-126); ANION GAP 16.9 MEQ/L (5-15); BILIRUBIN,TOTAL < 0.10 mg/dL (0.2-1.3); BLOOD UREA NITROGEN 73 mg/dL (7-17); CHLORIDE 83 mmol/L (98-107); Calcium 8.9 mg/dL (8.4-10.2); Carbon Dioxide 32 mmol/L (22-30); Creatinine 1 1.97 mg/dL (0.52-1.04); EST GLOMERULAR FILTRATION RATE 25.6 ML/MIN; Glucose 404 mg/dL (74-106); Potassium 4.1 mmol/L (3.5-5.1); SGOT/AST 22 U/L (14-36); SGPT/ALT 18 U/L (0-35); SODIUM 128 mmol/L (137-145); Total Protein 5.8 g/dL (6.3-8.2); Uric Acid 12.6 mg/dL (2.6-6.0)
[2021-04-11 06:03] LABS: NT PRO BNP 39900 pg/mL (0-1800)
[2021-04-11] MEDS: solu-MEDROL 40 MG IV SCH (06:17)
--- NOTE | 2021-04-11 07:45 | ECHO ---
Transthoracic echocardiographic examination and color Doppler was done on 04/09/2021. INDICATION: Congestive heart failure. IMPRESSION: 1) REGIONAL WALL MOTION SHOWED MILD HYPOKINESIA OF THE ANTERIOR SEPTAL WALL. LEFT VENTRICULAR EJECTION FRACTION BETWEEN 45 TO 50%. 2) TRACE MITRAL REGURGITATION. 3) MILD TRICUSPID REGURGITATION. RIGHT VENTRICULAR SYSTOLIC PRESSURE OF 47 MM OF MERCURY. 4) AORTIC VALVE SCLEROSIS WITH PEAK TRANSAORTIC GRADIENT OF 12 MM OF MERCURY. 5) MILD PULMONIC INSUFFICIENCY. 6) MILDLY DILATED RIGHT SIDE CHAMBERS. 7) LEFT VENTRICULAR DIASTOLIC DYSFUNCTION. 8) LEFT ATRIAL ENLARGEMENT. The left ventricle is visualized and demonstrated regional wall motion abnormality with mild hypokinesia of the anterior septal wall. Estimated global left ventricular ejection fraction is between 45 to 50%. There is mild left ventricular hypertrophy. The mitral valve is seen and this opens adequately. There is trace mitral regurgitation. The left atrium is mildly enlarged. Tissue Doppler study of the lateral mitral annulus suggestive of left ventricular diastolic dysfunction. The aortic valve is sclerotic and the peak gradient across the aortic valve is 12 mm of Mercury. The right side chambers are mildly dilated. There is mild tricuspid regurgitation. The right ventricular systolic pressure of 47 mm of Mercury. There is also mild pulmonic insufficiency.
[2021-04-11 08:23] LABS: BAND 8 % (0.0-2.0); Lymphocytes 8 % (24-44); Metamyelocyte 2 %; Monocyte 2 % (0.0-12.0); Myelocyte 3 %; Neutrophils 77 % (36.0-66.0); Platelet Estimate NORMAL (NORMAL); Total Cells Counted 100
[2021-04-11 08:25] LABS: ANISOCYTOSIS 1+; Hypochromia 1+; Poikilocytosis 1+; Polychromasia 1+
[2021-04-11] MEDS: HUMALOG SQ PRN ×2 (08:36→12:24)
--- NOTE | 2021-04-11 08:57 | PCM.DS ---
Discharge Summary Date of Admission: 04/06/21 16:22 Admitting Physician: ALYSSA BARGER Primary Care Provider: ALYSSA BARGER Allergies Allergies No Known Drug Allergies Allergy (Verified 03/11/21 10:40) Hospital Summary - Hospital Course Hospital Course: patient was admitted with acute exacerbation of chf, diuresed well, has had some intermittent confusion but she is alert and oriented today. prior to admission was seeking ecf placement, patient is alert and states she has to go home and won't go to the senior living. I spoke with her daughter Radha and she agrees to discharging home and that we cannot force her to go if she is not willing. [place] understands her medical condition but insists her kids live close and will help her. - Vitals & Intake/Output Vital Signs: Vital Signs Temperature 97.1 F 04/11/21 07:53 Pulse Rate 87 04/11/21 07:53 Respiratory Rate 16 04/11/21 07:53 Blood Pressure 144/80 04/11/21 07:53 O2 Sat by Pulse Oximetry 97 04/11/21 07:53 Intake & Output: Intake & Output 04/08/21 04/09/21 04/10/21 04/11/21 11:59 11:59 11:59 11:59 Intake Total 840 1300 1080 1080 Output Total 1600 1800 900 Balance -760 -919 135 7161 Weight 60.3 kg 58.9 kg 60.6 kg - Lab Result Diagrams: 04/11/21 04:30 04/11/21 04:30 Lab Results-Last 24 Hrs: Lab Results-Last 24 Hours 04/10/21 04/10/21 04/10/21 Range/Units 11:41 15:39 20:44 WBC (4.0-10.5) K/mm3 RBC (4.1-5.4) M/mm3 Hgb (12.0-16.0) gm/dl Hct (35-47) % MCV (78-100) fl MCH (26-32) pg MCHC (32-36) g/dl RDW (11.5-14.0) % Plt Count (150-450) K/mm3 MPV (7.5-11.0) fl Segmented Neutrophils (36.0-66.0) % Band Neutrophils (0.0-2.0) % Lymphocytes (Manual) (24-44) % Monocytes (Manual) (0.0-12.0) % Metamyelocytes % Myelocytes % Hypochromia Platelet Estimate (NORMAL) RBC Morphology Polychromasia Poikilocytosis Anisocytosis Sodium (137-145) mmol/L Potassium (3.5-5.1) mmol/L Chloride (98-107) mmol/L Carbon Dioxide (22-30) mmol/L Anion Gap (5-15) MEQ/L BUN (7-17) mg/dL Creatinine (0.52-1.04) mg/dL Estimated GFR ML/MIN Glucose (74-106) mg/dL POC Glucometer 264 H 327 H 434 H (74 to 106) mg/dL Uric Acid (2.6-6.0) mg/dL Calcium (8.4-10.2) mg/dL Total Bilirubin (0.2-1.3) mg/dL AST (14-36) U/L ALT (0-35) U/L Alkaline Phosphatase (38-126) U/L NT-Pro-B Natriuret Pep (0-1800) pg/mL Serum Total Protein (6.3-8.2) g/dL Albumin (3.5-5.0) g/dL 04/11/21 04/11/21 04/11/21 Range/Units 04:30 04:30 06:50 WBC 9.7 (4.0-10.5) K/mm3 RBC 2.67 L (4.1-5.4) M/mm3 Hgb 8.2 L (12.0-16.0) gm/dl Hct 25.6 L (35-47) % MCV 95.9 (78-100) fl MCH 30.7 (26-32) pg MCHC 32.0 (32-36) g/dl RDW 18.2 H (11.5-14.0) % Plt Count 260 (150-450) K/mm3 MPV 9.7 (7.5-11.0) fl Segmented Neutrophils 77 H (36.0-66.0) % Band Neutrophils 8 H (0.0-2.0) % Lymphocytes (Manual) 8 L (24-44) % Monocytes (Manual) 2 (0.0-12.0) % Metamyelocytes 2 % Myelocytes 3 % Hypochromia 1+ Platelet Estimate NORMAL (NORMAL) RBC Morphology ABNORMAL Polychromasia 1+ Poikilocytosis 1+ Anisocytosis 1+ Sodium 128 L (137-145) mmol/L Potassium 4.1 (3.5-5.1) mmol/L Chloride 83 L (98-107) mmol/L Carbon Dioxide 32 H (22-30) mmol/L Anion Gap 16.9 H (5-15) MEQ/L BUN 73 H (7-17) mg/dL Creatinine 1.97 H (0.52-1.04) mg/dL Estimated GFR 25.6 ML/MIN Glucose 404 H (74-106) mg/dL POC Glucometer 363 H (74 to 106) mg/dL Uric Acid 12.6 H (2.6-6.0) mg/dL Calcium 8.9 (8.4-10.2) mg/dL Total Bilirubin < 0.10 L (0.2-1.3) mg/dL AST 22 (14-36) U/L ALT 18 (0-35) U/L Alkaline Phosphatase 86 (38-126) U/L NT-Pro-B Natriuret Pep 36819 H (0-1800) pg/mL Serum Total Protein 5.8 L (6.3-8.2) g/dL Albumin 3.4 L (3.5-5.0) g/dL Micro Results-Entire Visit: Microbiology 04/07/21 12:00 Wound Culture - Final Wrist - Left NO GROWTH 04/06/21 19:15 Wound Culture - Final Calf - Left Lower Accuchecks Date 04/11/21 - Radiology Exams Ordered Rad Exams-Entire Visit: Radiology Procedures Category Date Time Status ECHO W/2D AND DOPPLER [US] Routine Exams 04/09/21 10:15 Draft - Procedures and Test Procedures and Tests throughout Hospitalization: Therapy Orders & Screens 04/06/21 17:20 OT Screen per Nursing Assess ONCE Comment: Protocol Order Physician Instructions: Greater than 3 points order OT Admission Screening Reason For Exam: Triggered on Admission Diagnosis: A FIB RVR Open Wound/Cellutlitis/Pressure Ulcers: Yes Acute Fx/ORIF/Change in wt bearing status: No Severe MUSCULOSKELETAL pain: No ADL Dysfunction: No Acute CVA w/Hemiparesis/Hemiplegia: No Decreased Functional Mobility/Strength: Yes Sprain/Strain: No Acute Post-op Mobility Dysfunction: No Total Points: 6 PT Screen per Nursing Assess ONCE Comment: Protocol Order Physician Instructions: Greater than 3 points order PT Admission Screenin Reason For Exam: Triggered on Admission Diagnosis: A FIB RVR Open Wound/Cellutlitis/Pressure Ulcers: Yes Acute Fx/ORIF/Change in wt bearing status: No Severe MUSCULOSKELETAL pain: No ADL Dysfunction: No Acute CVA w/Hemiparesis/Hemiplegia: No Decreased Functional Mobility/Strength: Yes Sprain/Strain: No Acute Post-op Mobility Dysfunction: No Total Points: 6 04/07/21 08:00 EKG ROUTINE Comment: Diagnosis: A FIB RVR 04/09/21 09:33 PT Eval & Treat (MD Order) ONCE Reason for Eval:: rehab placement Diagnosis: CHF, VASCULAR CONGESTION, CELLULITIS LEFT Discharge Exam General Appearance: no apparent distress, alert Neurologic Exam: alert, oriented x 3, cooperative, normal mood/affect, nml cerebellar function, sensation nml, No motor deficits Respiratory Exam: normal breath sounds, lungs clear, No respiratory distress Cardiovascular Exam: regular rate/rhythm, normal heart sounds Gastrointestinal/Abdomen Exam: soft, No tenderness, No mass Back Exam: normal inspection, normal range of motion, No CVA tenderness, No v ertebral tenderness Extremity Exam: normal inspection, normal range of motion Wound Assessment: Skin/Wound Assessment Wound/Incision Assessment Start: 04/06/21 17:20 Text: Status: Active Freq: Q6H Protocol: Document 04/11/21 08:40 RDUHNE (Rec: 04/11/21 08:40 RDNE [id number]) Wound/Incision Assessment Right Arm Wound Assessment Shift Assessment Dressing Status Dry & Intact Drainage Amount None Drainage Odor None/Absent Comment DRESSINGS IN PLACE WITH SLEEVE Left Lower Calf Wound Assessment Shift Assessment Wound Type ULCERATION Wound Stage Non Pressure Wound Drainage Amount None Drainage Odor None/Absent General Appearance Open to air Length (cm) (cm) 2 Width (cm) (cm) 1 Wound Bed Greatest Portion Yellow ([place]) Wound Bed Lesser Portion Pale [place] Surrounding Tissue [place] Comment OPEN TO AIR Wound Photo Photo Taken Yes Comment: previously taken and on chart Final Diagnosis/Problem List - Final Discharge Diagnosis/Problem (1) Ulcer of left lower leg Current Visit: Yes Status: Chronic Code(s): L97.929 - NON-PRS CHRONIC ULC UNSP PRT OF L LOW LEG W UNSP SEVERITY (2) Acute exacerbation of CHF (congestive heart failure) Current Visit: No Status: Acute Code(s): I50.9 - HEART FAILURE, UNSPECIFIED (3) Acute gout Current Visit: No Status: Acute Code(s): M10.9 - GOUT, UNSPECIFIED (4) DM2 (diabetes mellitus, type 2) Current Visit: No Status: Chronic - Discharge Disposition: Home, Self-Care Condition: Stable Prescriptions: New Allopurinol 100 mg [Zyloprim 100 mg] 100 mg PO DAILY #30 tablet Continue Metoprolol Tartrate 50 mg [Lopressor 50 MG] 50 mg PO BID Sitagliptin Phosphate [Januvia] 100 mg PO DAILY Hydralazine HCl 50 mg PO TID Furosemide 40 mg [Lasix 40 MG] 60 mg PO BID metOLazone [Metolazone] 2.5 mg PO DAILY Sodium Bicarbonate 650 mg PO DAILY Follow up with: ALYSSA BARGER MD [Primary Care Provider] - 1 Week JOLEEN ARANDA [ACTIVE STAFF] - Call for Appointment
[2021-04-11] MEDS ORDERED: SODIUM BICARBONATE PO SCH (10:00)
[2021-04-11] MEDS: Lasix 40 MG/4 ML IV SCH (10:23)
[2021-04-11] MEDS: Januvia 50 MG PO SCH (10:28)
[2021-04-11] MEDS: Zaroxolyn 2.5 MG PO SCH (10:28)
[2021-04-11] MEDS: Apresoline 25 MG TABLET PO SCH (10:28)
[2021-04-11] MEDS: Klor Con 10 MEQ PO SCH (10:28)
[2021-04-11] MEDS: ZYLOPRIM 100 MG PO SCH (10:29)
[2021-04-11] MEDS: Lopressor 50 MG PO SCH (10:29)
[2021-04-11] MEDS: ENOXAPARIN SODIUM SQ SCH (10:38)
[2021-04-11 11:50] VITALS: BP 140/79; PULSE 83; O2SAT 99
== END 2021-04-11 13:43 | disposition home or self-care (01) ==
LOC: INTOOBSV 16:22 → ICU 16:22
PROVIDERS: ADMIT Family Medicine; ATTEND Family Medicine
DX: L97.929 Non-pressure chronic ulcer of unspecified part of left lower leg with unspecified severity (principal); I50.9 Heart failure, unspecified; M10.9 Gout, unspecified; E11.9 Type 2 diabetes mellitus without complications; Z79.899 Other long term (current) drug therapy; I25.10 Atherosclerotic heart disease of native coronary artery without angina pectoris; I48.91 Unspecified atrial fibrillation; I10 Essential (primary) hypertension; Z86.14 Personal history of Methicillin resistant Staphylococcus aureus infection; M25.579 Pain in unspecified ankle and joints of unspecified foot; D64.9 Anemia, unspecified; R41.3 Other amnesia; Z20.828 Contact with and (suspected) exposure to other viral communicable diseases
CPT/HCPCS: 36415; 36430; 71045; 80053; 80061; 81001; 82607; 82947; 83036; 83721; 83735; 83880; 84484; 84550; 85014; 85018; 85025; 86850; 86900; 86901; 86922; 87070; 93005; 93268; 93306; 97110; 97162; G0378; P9016; U0003; J1650; J1817; J1940; J1956; J2920; J2930; A9270-GY

== ENCOUNTER 2021-04-22 09:01 | Observation (INO) | payer MEDICARE ==
[2021-04-22] MEDS ORDERED: MORPHINE SULFATE 2 MG INJ IV ONE (09:45)
[2021-04-22] MEDS ORDERED: Zofran 4 MG/2 ML VIAL IV ONE (09:45)
--- NOTE | 2021-04-22 09:52 | ERPHSYRPT ---
- History of Present Illness Patient Subjective Stated Complaint: Pt states "They don't want to take care of me anymore.". Pt daughter states "She was in the hospital for 5 days for fluid on her heart then she was released on the of last month and ever since she has been yelling and screaming and just out of her mind." Triage Nursing Assessment: Pt presented alert and oriented X 3, skin pwd Pt ambulates with a slow gait with assist of one. Pt able to do simple math. Pt speaks in clear full sentences pt in no apparent respiratory distress. Physician History: 85 years old female with history of hypertension, diabetes mellitus, congestive heart failure, paroxysmal atrial fibrillation, bilateral lower extremity pain who was recently admitted for atrial fibrillation, discharge almost 10 days ago presented with increasing confusion and agitation since at discharge by her daughter. Daughter reports last night she was really agitated and is complaining of pain in the feet more than the left and right and lower extremity pain which is there all the time. No swelling of lower extremities. Denies any fever chills cough or shortness of breath. Patient is awake alert and oriented, reports she wants to go home and her daughter is mean to her she does not want to take care of her. Daughter reports has been getting really difficult to handle her at home. Daughter wants patient to go [place] [facility] as she is unable to take care of her but patient refuses to go and adamant about going back home he does not want to stay in the hospital either. Patient does not seem confused or altered at all, conversing normally. Timing/Duration: day(s) (10), intermittent, worse Severity: moderate Associated Symptoms: denies symptoms Allergies/Adverse Reactions: No Known Drug Allergies Allergy (Verified 03/11/21 10:40) Home Medications: Metoprolol Tartrate 50 mg [Lopressor 50 MG] 50 mg PO BID 02/12/19 [History] Sitagliptin Phosphate [Januvia] 100 mg PO DAILY 02/12/19 [History] Furosemide 40 mg [Lasix 40 MG] 60 mg PO BID 10/08/19 [History] Hydralazine HCl 50 mg PO TID 10/08/19 [History] Sodium Bicarbonate 650 mg PO DAILY 03/11/21 [History] metOLazone [Metolazone] 2.5 mg PO DAILY 03/11/21 [History] Hx Tetanus, Diphtheria Vaccination/Date Given: Yes Hx Influenza Vaccination/Date Given: Yes Hx Pneumococcal Vaccination/Date Given: No Immunizations Up to Date: Yes Travel Risk - International Travel Have you traveled outside of the country in past 3 weeks: No - Coronavirus Screening Are you exhibiting any of the following symptoms?: No Close contact with a COVID-19 positive Pt in past 14-21 Days: No - Vaccine Status Have you recieved a Covid-19 vaccination: No - Review of Systems Constitutional: No Symptoms Eyes: No Symptoms Ears, Nose, & Throat: No Symptoms Respiratory: No Symptoms Cardiac: No Symptoms Abdominal/Gastrointestinal: No Symptoms Genitourinary Symptoms: No Symptoms Musculoskeletal: Joint Pain, Myalgias, No Fall Skin: No Symptoms Neurological: Irritability Endocrine: No Symptoms Hematologic/Lymphatic: No Symptoms Immunological/Allergic: No Symptoms - Past Medical History Pertinent Past Medical History: Yes Neurological History: No Pertinent History ENT History: No Pertinent History Cardiac History: Coronary Artery Disease, Hypertension, Myocardial Infarction (MS) Respiratory History: CHF Endocrine Medical History: Diabetes Type II Musculoskeletal History: Osteoarthritis GI Medical History: Other History: Renal Disease Psycho-Social History: No Pertinent History Female Reproductive Disorders: No Pertinent History Other Medical History: CARDIAC STENT 01/02; Enlarged liver, open heart surgery 12/08/18 - Past Surgical History Past Surgical History: Yes Neuro Surgical History: No Pertinent History Cardiac: Angioplasty, CABG, Cardiac Catheterization, Cardiac Stent Respiratory: No Pertinent History Gastrointestinal: No Pertinent History Genitourinary: No Pertinent History Musculoskeletal: Other Female Surgical History: Hysterectomy Other Surgical History: cardiac stent x three December. CABG x 4 vessels in -2018, wound care for bilateral legs within the last year - Social History Smoking Status: Never smoker Exposure to second hand smoke: No Drug Use: none Patient Lives Alone: Yes - Nursing Vital Signs Nursing Vital Signs: Initial Vital Signs Temperature 98.6 F 04/22/21 09:10 Pulse Rate 77 04/22/21 09:10 Respiratory Rate 20 04/22/21 09:10 Blood Pressure 123/71 04/22/21 09:10 O2 Sat by Pulse Oximetry 100 04/22/21 09:10 Pain Scale Pain Intensity 0 - Physical Exam General Appearance: no apparent distress, anxiety Eye Exam: PERRL/EOMI, eyes nml inspection Ears, Nose, Throat Exam: normal ENT inspection, TMs normal, pharynx normal, moist mucous membranes Neck Exam: normal inspection, non-tender, supple, full range of motion, No meningismus Respiratory Exam: normal breath sounds, lungs clear Cardiovascular Exam: regular rate/rhythm, normal heart sounds Gastrointestinal/Abdomen Exam: soft, normal bowel sounds Back Exam: normal inspection, normal range of motion Extremity Exam: other (Lateral leg sores/ulcers with good granulation tissue without any surrounding erythema or induration. Bilateral calf and feet tenderness. No obvious swelling.) Neurologic Exam: alert, oriented x 3, cooperative, program support assistant II-XII nml as tested, nml cerebellar function, sensation nml, No normal mood/affect, No motor deficits Skin Exam: normal color SpO2 Interpretation: normal SpO2: 100 O2 Delivery: Room Air Ordered Tests: Active Orders 24 hr Category Date Time Status IV Insertion STAT Care 04/22/21 09:44 Active CHEST 1 VIEW (PORTABLE) Stat Exams 04/22/21 09:45 Taken BLOOD CULTURE Stat Lab 04/22/21 09:44 Received CBC W DIFF Stat Lab 04/22/21 09:57 Completed CMP Stat Lab 04/22/21 09:57 Completed CULTURE,URINE Stat Lab 04/22/21 12:02 Received Lactic Acid Stat Lab 04/22/21 09:44 Completed Lactic Acid Stat Lab 04/22/21 12:13 Stop Req MAGNESIUM Stat Lab 04/22/21 09:57 Completed Manual Differential NC Stat Lab 04/22/21 09:57 Completed NT PRO BNP Stat Lab 04/22/21 09:57 Completed UA W/RFX UR CULTURE Stat Lab 04/22/21 12:12 Completed Transfer Order Routine Transfer 04/22/21 Ordered Medication Summary Generic Name Dose Route Start Last Admin Trade Name Freq PRN Reason Stop Dose Admin Potassium Chloride 20 meq in 100 mls @ 50 mls/hr 04/22/21 14:24 04/22/21 14:43 Potassium Chloride 20 Meq In Water 100ml IV 04/22/21 16:23 50 mls/hr STAT ONE Administration Potassium Chloride/Sodium Chloride 1,000 mls @ 100 mls/hr 04/22/21 14:30 04/22/21 15:02 Sodium Chloride 0.9% W/ 20 Meq Kcl/Liter IV 05/22/21 14:29 Not Given .Q10H SMITHA Sodium Chloride 1,000 mls @ 100 mls/hr 04/22/21 15:15 04/22/21 15:11 Sodium Chloride 0.9% 1000 Ml IV 05/22/21 15:14 100 mls/hr .Q10H SMITHA Administration Discontinued Medications Generic Name Dose Route Start Last Admin Trade Name Oma PRN Reason Stop Dose Admin Potassium Chloride Confirm 04/22/21 14:40 Potassium Chloride 20 Meq In Water 100ml Administered 04/22/21 14:41 Dose 100 mls @ ud IV .STK-MED ONE Morphine Sulfate 2 mg 04/22/21 09:45 04/22/21 10:55 Morphine Sulfate 2 Mg Inj IV 04/22/21 09:46 2 mg STAT ONE Administration Morphine Sulfate Confirm 04/22/21 10:53 Morphine Sulfate 2 Mg Inj Administered 04/22/21 10:54 Dose 2 mg .ROUTE .STK-MED ONE Ondansetron HCl 4 mg 04/22/21 09:45 04/22/21 10:55 Zofran 4 Mg/2 Ml Vial IV 04/22/21 09:46 4 mg STAT ONE Administration Ondansetron HCl Confirm 04/22/21 10:52 Zofran 4 Mg/2 Ml Vial Administered 04/22/21 10:53 Dose 4 mg .ROUTE .STK-MED ONE Potassium Bicarbonate 50 meq 04/22/21 14:24 04/22/21 14:43 K-Lyte 25 Meq PO 04/22/21 14:25 50 meq STAT ONE Administration Potassium Bicarbonate Confirm 04/22/21 14:40 K-Lyte 25 Meq Administered 04/22/21 14:41 Dose 25 meq .ROUTE .STK-MED ONE Potassium Bicarbonate Confirm 04/22/21 14:41 K-Lyte 25 Meq Administered 04/22/21 14:42 Dose 25 meq .ROUTE .STK-MED ONE Lab/Rad Data: Laboratory Result Diagrams 04/22/21 09:57 04/22/21 09:57 Laboratory Results 04/22/21 04/22/21 04/22/21 Range/Units 12:12 09:57 09:57 WBC 7.0 (4.0-10.5) K/mm3 RBC 3.18 L (4.1-5.4) M/mm3 Hgb 9.6 L (12.0-16.0) gm/dl Hct 28.7 L (35-47) % MCV 90.3 (78-100) fl MCH 30.2 (26-32) pg MCHC 33.4 (32-36) g/dl RDW 18.0 H (11.5-14.0) % Plt Count 259 (150-450) K/mm3 MPV 10.4 (7.5-11.0) fl Segmented Neutrophils 76 H (36.0-66.0) % Band Neutrophils 5 H (0.0-2.0) % Lymphocytes (Manual) 12 L (24-44) % Monocytes (Manual) 6 (0.0-12.0) % Basophils (Manual) 1 (0.0-1.0) % Platelet Estimate NORMAL (NORMAL) RBC Morphology NORMAL Sodium 130 L (137-145) mmol/L Potassium 3.0 L* (3.5-5.1) mmol/L Chloride 85 L (98-107) mmol/L Carbon Dioxide 27 (22-30) mmol/L Anion Gap 20.6 H (5-15) MEQ/L BUN 81 H (7-17) mg/dL Creatinine 3.15 H (0.52-1.04) mg/dL Estimated GFR 14.9 ML/MIN Glucose 180 H (74-106) mg/dL Lactic Acid (0.4-2.0) Calcium 9.2 (8.4-10.2) mg/dL Magnesium 2.2 (1.6-2.3) mg/dL Total Bilirubin 0.50 (0.2-1.3) mg/dL AST 25 (14-36) U/L ALT 17 (0-35) U/L Alkaline Phosphatase 98 (38-126) U/L NT-Pro-B Natriuret Pep 54843 H (0-1800) pg/mL Serum Total Protein 6.4 (6.3-8.2) g/dL Albumin 3.9 (3.5-5.0) g/dL Urine Color YELLOW (YELLOW) Urine Appearance CLEAR (CLEAR) Urine pH 7.0 (5-6) Ur Specific [place] 1.008 (1.005-1.025) Urine Protein NEGATIVE (Negative) Urine Ketones NEGATIVE (NEGATIVE) Urine Blood NEGATIVE (0-5) Jose/ul Urine Nitrite NEGATIVE (NEGATIVE) Urine Bilirubin NEGATIVE (NEGATIVE) Urine Urobilinogen NEGATIVE (0-1) mg/dL Ur Leukocyte Esterase NEGATIVE (NEGATIVE) Urine WBC (Auto) NONE SEEN (0-5) /HPF Urine RBC (Auto) NONE SEEN (0-2) /HPF U Hyaline Cast (Auto) 0-2 (0-2) /LPF U Epithel Cells (Auto) NONE (FEW) /HPF Urine Mucus (Auto) SLIGHT (NEGATIVE) /HPF Urine Culture Reflexed ORDERED SEPARATELY (NO) Urine Glucose NEGATIVE (NEGATIVE) mg/dL 04/22/21 Range/Units 09:44 WBC (4.0-10.5) K/mm3 RBC (4.1-5.4) M/mm3 Hgb (12.0-16.0) gm/dl Hct (35-47) % MCV (78-100) fl MCH (26-32) pg MCHC (32-36) g/dl RDW (11.5-14.0) % Plt Count (150-450) K/mm3 MPV (7.5-11.0) fl Segmented Neutrophils (36.0-66.0) % Band Neutrophils (0.0-2.0) % Lymphocytes (Manual) (24-44) % Monocytes (Manual) (0.0-12.0) % Basophils (Manual) (0.0-1.0) % Platelet Estimate (NORMAL) RBC Morphology Sodium (137-145) mmol/L Potassium (3.5-5.1) mmol/L Chloride (98-107) mmol/L Carbon Dioxide (22-30) mmol/L Anion Gap (5-15) MEQ/L BUN (7-17) mg/dL Creatinine (0.52-1.04) mg/dL Estimated GFR ML/MIN Glucose (74-106) mg/dL Lactic Acid 2.1 H (0.4-2.0) Calcium (8.4-10.2) mg/dL Magnesium (1.6-2.3) mg/dL Total Bilirubin (0.2-1.3) mg/dL AST (14-36) U/L ALT (0-35) U/L Alkaline Phosphatase (38-126) U/L NT-Pro-B Natriuret Pep (0-1800) pg/mL Serum Total Protein (6.3-8.2) g/dL Albumin (3.5-5.0) g/dL Urine Color (YELLOW) Urine Appearance (CLEAR) Urine pH (5-6) Ur Specific [place] (1.005-1.025) Urine Protein (Negative) Urine Ketones (NEGATIVE) Urine Blood (0-5) Jose/ul Urine Nitrite (NEGATIVE) Urine Bilirubin (NEGATIVE) Urine Urobilinogen (0-1) mg/dL Ur Leukocyte Esterase (NEGATIVE) Urine WBC (Auto) (0-5) /HPF Urine RBC (Auto) (0-2) /HPF U Hyaline Cast (Auto) (0-2) /LPF U Epithel Cells (Auto) (FEW) /HPF Urine Mucus (Auto) (NEGATIVE) /HPF Urine Culture Reflexed (NO) Urine Glucose (NEGATIVE) mg/dL - Progress Progress: improved Progress Note: 04/22/21 15:26 85 years old is evaluated for confusion, altered mental status. Patient was a wake alert and oriented on my initial evaluation. Later on during stay in the ER patient could not recognize her grandson which she is very close to. Her work-up showed normal white count, no UTI. Does have chemistry finding consistent with dehydration with acute on chronic renal failure and hypokalemia. She is given oral and IV potassium and fluids. Will hydrate her gently to make sure she does not go in congestive heart failure. Patient is later agreeable staying in the hospital. Discussed with and patient is accepted for admission. Discussed with .: Trudy Will see patient in: hospital (observation) Counseled pt/family regarding: lab results, diagnosis, need for follow-up, rad results - Departure Departure Disposition: Observation Clinical Impression: Hypokalemia, Encephalopathy Acute on chronic renal failure Qualifiers: Acute renal failure type: unspecified Chronic kidney disease stage: unspecified stage Qualified Code(s): N17.9 - Acute kidney failure, unspecified Condition: Stable Critical Care Time: No Referrals: ALYSSA BARGER MD [Primary Care Provider] -
[2021-04-22 10:15] LABS: Hematocrit 28.7 % (35-47); Hemoglobin 9.6 gm/dl (12.0-16.0); Mean Cell Volume 90.3 fl (78-100); Mean Corpuscular Hemoglobin 30.2 pg (26-32); Mean Corpuscular Hgb Concent. 33.4 g/dl (32-36); Mean Platelet Volume 10.4 fl (7.5-11.0); Platelet Count 259 K/mm3 (150-450); Red Blood Count 3.18 M/mm3 (4.1-5.4)
[2021-04-22] MEDS ORDERED: Zofran 4 MG/2 ML VIAL ONE (10:52)
[2021-04-22] MEDS ORDERED: MORPHINE SULFATE 2 MG INJ ONE (10:53)
[2021-04-22 11:02] LABS: BAND 5 % (0.0-2.0); Basophil 1 % (0.0-1.0); Lymphocytes 12 % (24-44); Monocyte 6 % (0.0-12.0); Neutrophils 76 % (36.0-66.0); Platelet Estimate NORMAL (NORMAL); Total Cells Counted 100
[2021-04-22 12:28] LABS: Appearance CLEAR (CLEAR); Bilirubin NEGATIVE (NEGATIVE); Blood NEGATIVE Ery/ul (0-5); Glucose NEGATIVE (NEGATIVE); Hyaline Casts 0-2 /LPF (0-2); Ketones NEGATIVE (NEGATIVE); Leukocyte Esterase NEGATIVE (NEGATIVE); Mucus SLIGHT /HPF (NEGATIVE); Nitrite NEGATIVE (NEGATIVE); Protein,Urine Dip NEGATIVE (Negative); Specific Gravity 1.008 (1.005-1.025); Urobilinogen NEGATIVE mg/dL (0-1)
[2021-04-22 12:30] LABS: RBC NONE SEEN /HPF (0-2); WBC NONE SEEN /HPF (0-5)
[2021-04-22 13:46] LABS: ALBUMIN 3.9 g/dL (3.5-5.0); ANION GAP 20.6 MEQ/L (5-15); BILIRUBIN,TOTAL 0.5 mg/dL (0.2-1.3); Calcium 9.2 mg/dL (8.4-10.2); Creatinine 1 3.15 mg/dL (0.52-1.04); EST GLOMERULAR FILTRATION RATE 14.9 ML/MIN; MAGNESIUM 2.2 mg/dL (1.6-2.3); Total Protein 6.4 g/dL (6.3-8.2)
[2021-04-22] MEDS ORDERED: K-LYTE 25 MEQ PO ONE (14:24)
[2021-04-22] MEDS ORDERED: POTASSIUM CHLORIDE 20 mEq IN WATER 100ML 20 MEQ/100 ML BAG IV ONE (14:24)
[2021-04-22] MEDS ORDERED: Sodium Chloride 0.9% W/ 20 mEq KCl/LITER 1,000 ML IV SCH (14:30)
[2021-04-22] MEDS ORDERED: POTASSIUM CHLORIDE 20 mEq IN WATER 100ML 100 ML IV ONE (14:40)
[2021-04-22] MEDS ORDERED: K-LYTE 25 MEQ ONE ×2 (14:40→14:41)
[2021-04-22] MEDS ORDERED: Sodium Chloride 0.9% 1000 ML 1,000 ML ONE (15:03)
[2021-04-22] MEDS ORDERED: Sodium Chloride 0.9% 1000 ML 1,000 ML IV SCH (15:15)
--- NOTE | 2021-04-22 17:28 | XRAY ---
Indication: Confusion. Comparison: April 06, 2021. Portable chest unchanged again demonstrating chronic left hemidiaphragm elevation with adjacent atelectasis/scarring, blunting right costophrenic angle, and borderline cardiomegaly with CABG/cardiac valve replacement surgery. No new/acute abnormalities.
[2021-04-22] MEDS ORDERED: DUONEB 0.5-3 MG/3 ml Neb IH PRN (17:32)
[2021-04-22] MEDS ORDERED: HUMALOG SQ PRN (17:32)
[2021-04-22] MEDS ORDERED: Zofran 4 MG/2 ML VIAL IV PRN (17:32)
[2021-04-22] MEDS ORDERED: Sodium Chloride 0.9% W/ 20 mEq KCl/LITER 1,000 ML IV ONE (19:51)
[2021-04-22] MEDS: Sodium Chloride 0.9% W/ 20 mEq KCl/LITER 1,000 ML IV SCH (20:05)
[2021-04-22] MEDS: Apresoline 25 MG TABLET PO SCH (21:31)
[2021-04-22] MEDS: Lopressor 50 MG PO SCH (21:31)
[2021-04-22] MEDS: Pepcid 20 MG VIAL IV SCH (21:31)
[2021-04-22] MEDS: Bactroban OINTMENT TP SCH (21:32)
[2021-04-23] MEDS: TYLENOL 325 MG PO PRN ×2 (04:15→21:22)
[2021-04-23] MEDS ORDERED: Sodium Chloride 0.9% 1000 ML 0 ML ONE (04:20)
[2021-04-23] MEDS: Sodium Chloride 0.9% W/ 20 mEq KCl/LITER 1,000 ML IV SCH ×2 (04:24→20:29)
[2021-04-23 05:12] LABS: Hematocrit 24.9 % (35-47); Hemoglobin 8.1 gm/dl (12.0-16.0); Mean Cell Volume 93.3 fl (78-100); Mean Corpuscular Hemoglobin 30.3 pg (26-32); Mean Corpuscular Hgb Concent. 32.5 g/dl (32-36); Platelet Count 224 K/mm3 (150-450); Red Blood Count 2.67 M/mm3 (4.1-5.4); Red Cell Distribution Width 18.3 % (11.5-14.0); White Blood Count 6.8 K/mm3 (4.0-10.5)
[2021-04-23 06:23] LABS: ANION GAP 14.9 MEQ/L (5-15); Calcium 8.3 mg/dL (8.4-10.2); Creatinine 1 2.82 mg/dL (0.52-1.04); EST GLOMERULAR FILTRATION RATE 16.9 ML/MIN
[2021-04-23 07:20] LABS: ANISOCYTOSIS 1+; BAND 5 % (0.0-2.0); Lymphocytes 10 % (24-44); Monocyte 2 % (0.0-12.0); Neutrophils 83 % (36.0-66.0); Platelet Estimate NORMAL (NORMAL); Total Cells Counted 100; Toxic Granulation 1+
--- NOTE | 2021-04-23 08:54 | PCM.HP ---
History of Present Illness - Chief Complaint Chief Complaint: Acute on chronic renal failure; hypokalemia History of Present Illness: is a 85 year old female who has been failing and admitted several times in the past few weeks, she has a history of chf s/p CABG and chronic gout, she is noncompliant with her medications recently and complains of "feeling bad" she denies chest pain, cough, shortness of breath, swelling in her legs, she couldn't sleep well the night before she came in but can't be more specific on her symptoms, she is alert and oriented this morning and answers questions appropriately, tells me her son stayed with her the night before she came, she had a bad night so he asked her if she wanted to go for a ride then brought her to the ER to be admitted, her potassium was low on arrival, she has been considering rehab stay but refused last hospital admission. - Review of Systems Constitutional: No Fever, No Chills Respiratory: No Cough, No Short Of Breath Cardiac: No Chest Pain, No Edema, No Syncope Genitourinary Symptoms: No Dysuria Skin: No Symptoms, No Rash All Other Systems: Reviewed and Negative Medications & Allergies Home Medications: Home Medication List Metoprolol Tartrate 50 mg [Lopressor 50 MG] 50 mg PO BID 02/12/19 [History Confirmed 04/22/21] Sitagliptin Phosphate [Januvia] 100 mg PO DAILY 02/12/19 [History Confirmed 04/22/21] Furosemide 40 mg [Lasix 40 MG] 60 mg PO BID 10/08/19 [History Confirmed 04/22/21] Hydralazine HCl 50 mg PO TID 10/08/19 [History Confirmed 04/22/21] Sodium Bicarbonate 650 mg PO DAILY 03/11/21 [History Confirmed 04/22/21] metOLazone [Metolazone] 2.5 mg PO DAILY 03/11/21 [History Confirmed 04/22/21] Allopurinol 100 mg [Zyloprim 100 mg] 100 mg PO DAILY #30 tablet 04/11/21 [Rx Confirmed 04/22/21] Aspirin EC 81 mg [Ecotrin 81 mg] 81 mg PO DAILY 04/22/21 [History Confirmed 04/22/21] Mupirocin [Bactroban OINTMENT] 22 gm TP BID 04/22/21 [History Confirmed 04/22/21] Allergies/Adverse Reactions: Allergies Allergy/AdvReac Type Severity Reaction Status Date / Time No Known Drug Allergies Allergy Verified 04/22/21 17:35 - Past Medical History Past Medical History: Yes Neurological History: Dementia ENT History: No Pertinent History Cardiac History: Arrhythmia, Coronary Artery Disease, Hypertension, Myocardial Infarction (DC) Respiratory History: CHF Endocrine Medical History: Diabetes Type II Musculoskelatal History: Osteoarthritis GI Medical History: Other History: Renal Disease Pyscho-Social History: No Pertinent History Reproductive Disorders: No Pertinent History Comment: CARDIAC STENT 01/02; Enlarged liver, open heart surgery 12/08/18 - Female History Hx Last Menstrual Period: N/A Are you now?: No - Past Surgical History Past Surgical History: Yes Neuro Surgical History: No Pertinent History Cardiac History: Angioplasty, CABG, Cardiac Catheterization, Cardiac Stent Respiratory Surgery: No Pertinent History GI Surgical History: No Pertinent History Genitourinary Surgical Hx: No Pertinent History Musculskeletal Surgical Hx: Other Female Surgical History: Hysterectomy Other Surgical History: cardiac stent x three December. CABG x 4 vessels in -2018, wound care for bilateral legs within the last year - Social History Smoking Status: Never smoker Exposure to second hand smoke: No Alcohol: None Drug Use: none - Physical Exam Vital Signs: Vital Signs - 24 hr Temp Pulse Resp BP Pulse Ox 04/23/21 04:00 98.4 F 67 16 129/61 95 04/23/21 00:00 97.4 F 71 18 95/50 97 04/22/21 20:00 98.0 F 68 18 108/54 96 04/22/21 18:35 67 16 97 04/22/21 18:19 97.3 F 70 18 119/68 100 04/22/21 15:30 100 04/22/21 14:36 62 20 106/53 98 04/22/21 13:47 97.6 F 67 20 131/67 98 04/22/21 12:12 61 19 131/65 100 04/22/21 11:12 98.6 F 71 20 124/55 98 04/22/21 10:40 69 22 99/70 98 04/22/21 09:10 98.6 F 77 20 123/71 100 General Appearance: no apparent distress Neurologic Exam: alert, oriented x 3, cooperative Respiratory Exam: normal breath sounds, lungs clear, No respiratory distress Cardiovascular Exam: regular rate/rhythm, normal heart sounds, normal peripheral pulses Gastrointestinal/Abdomen Exam: soft, normal bowel sounds, No tenderness, No mass Extremity Exam: other (chronic venous stasis changes and wounds to lower legs, no redness or drainage, no significant swelling) Results - Labs Lab/Micro Results: Lab Results-Last 24 Hours 04/22/21 04/22/21 04/22/21 Range/Units 09:44 09:57 09:57 WBC 7.0 (4.0-10.5) K/mm3 RBC 3.18 L (4.1-5.4) M/mm3 Hgb 9.6 L (12.0-16.0) gm/dl Hct 28.7 L (35-47) % MCV 90.3 (78-100) fl MCH 30.2 (26-32) pg MCHC 33.4 (32-36) g/dl RDW 18.0 H (11.5-14.0) % Plt Count 259 (150-450) K/mm3 MPV 10.4 (7.5-11.0) fl Segmented Neutrophils 76 H (36.0-66.0) % Band Neutrophils 5 H (0.0-2.0) % Lymphocytes (Manual) 12 L (24-44) % Monocytes (Manual) 6 (0.0-12.0) % Basophils (Manual) 1 (0.0-1.0) % Toxic Granulation Platelet Estimate NORMAL (NORMAL) RBC Morphology NORMAL Anisocytosis Sodium 130 L (137-145) mmol/L Potassium 3.0 L* (3.5-5.1) mmol/L Chloride 85 L (98-107) mmol/L Carbon Dioxide 27 (22-30) mmol/L Anion Gap 20.6 H (5-15) MEQ/L BUN 81 H (7-17) mg/dL Creatinine 3.15 H (0.52-1.04) mg/dL Estimated GFR 14.9 ML/MIN Glucose 180 H (74-106) mg/dL POC Glucometer (74 to 106) mg/dL Lactic Acid 2.1 H (0.4-2.0) Calcium 9.2 (8.4-10.2) mg/dL Magnesium 2.2 (1.6-2.3) mg/dL Total Bilirubin 0.50 (0.2-1.3) mg/dL AST 25 (14-36) U/L ALT 17 (0-35) U/L Alkaline Phosphatase 98 (38-126) U/L NT-Pro-B Natriuret Pep 86404 H (0-1800) pg/mL Serum Total Protein 6.4 (6.3-8.2) g/dL Albumin 3.9 (3.5-5.0) g/dL Urine Color (YELLOW) Urine Appearance (CLEAR) Urine pH (5-6) Ur Specific [place] (1.005-1.025) Urine Protein (Negative) Urine Ketones (NEGATIVE) Urine Blood (0-5) Jose/ul Urine Nitrite (NEGATIVE) Urine Bilirubin (NEGATIVE) Urine Urobilinogen (0-1) mg/dL Ur Leukocyte Esterase (NEGATIVE) Urine WBC (Auto) (0-5) /HPF Urine RBC (Auto) (0-2) /HPF U Hyaline Cast (Auto) (0-2) /LPF U Epithel Cells (Auto) (FEW) /HPF Urine Mucus (Auto) (NEGATIVE) /HPF Urine Culture Reflexed (NO) Urine Glucose (NEGATIVE) mg/dL SARS-CoV-2 (PCR) (NEGATIVE) 04/22/21 04/22/21 04/22/21 Range/Units 12:12 15:31 20:00 WBC (4.0-10.5) K/mm3 RBC (4.1-5.4) M/mm3 Hgb (12.0-16.0) gm/dl Hct (35-47) % MCV (78-100) fl MCH (26-32) pg MCHC (32-36) g/dl RDW (11.5-14.0) % Plt Count (150-450) K/mm3 MPV (7.5-11.0) fl Segmented Neutrophils (36.0-66.0) % Band Neutrophils (0.0-2.0) % Lymphocytes (Manual) (24-44) % Monocytes (Manual) (0.0-12.0) % Basophils (Manual) (0.0-1.0) % Toxic Granulation Platelet Estimate (NORMAL) RBC Morphology Anisocytosis Sodium (137-145) mmol/L Potassium 3.6 (3.5-5.1) mmol/L Chloride (98-107) mmol/L Carbon Dioxide (22-30) mmol/L Anion Gap (5-15) MEQ/L BUN (7-17) mg/dL Creatinine (0.52-1.04) mg/dL Estimated GFR ML/MIN Glucose (74-106) mg/dL POC Glucometer (74 to 106) mg/dL Lactic Acid (0.4-2.0) Calcium (8.4-10.2) mg/dL Magnesium (1.6-2.3) mg/dL Total Bilirubin (0.2-1.3) mg/dL AST (14-36) U/L ALT (0-35) U/L Alkaline Phosphatase (38-126) U/L NT-Pro-B Natriuret Pep (0-1800) pg/mL Serum Total Protein (6.3-8.2) g/dL Albumin (3.5-5.0) g/dL Urine Color YELLOW (YELLOW) Urine Appearance CLEAR (CLEAR) Urine pH 7.0 (5-6) Ur Specific [place] 1.008 (1.005-1.025) Urine Protein NEGATIVE (Negative) Urine Ketones NEGATIVE (NEGATIVE) Urine Blood NEGATIVE (0-5) Jose/ul Urine Nitrite NEGATIVE (NEGATIVE) Urine Bilirubin NEGATIVE (NEGATIVE) Urine Urobilinogen NEGATIVE (0-1) mg/dL Ur Leukocyte Esterase NEGATIVE (NEGATIVE) Urine WBC (Auto) NONE SEEN (0-5) /HPF Urine RBC (Auto) NONE SEEN (0-2) /HPF U Hyaline Cast (Auto) 0-2 (0-2) /LPF U Epithel Cells (Auto) NONE (FEW) /HPF Urine Mucus (Auto) SLIGHT (NEGATIVE) /HPF Urine Culture Reflexed ORDERED SEPARATELY (NO) Urine Glucose NEGATIVE (NEGATIVE) mg/dL SARS-CoV-2 (PCR) NEGATIVE (NEGATIVE) 04/22/21 04/23/21 04/23/21 Range/Units 21:03 04:15 04:15 WBC 6.8 (4.0-10.5) K/mm3 RBC 2.67 L (4.1-5.4) M/mm3 Hgb 8.1 L (12.0-16.0) gm/dl Hct 24.9 L (35-47) % MCV 93.3 (78-100) fl MCH 30.3 (26-32) pg MCHC 32.5 (32-36) g/dl RDW 18.3 H (11.5-14.0) % Plt Count 224 (150-450) K/mm3 MPV 10.0 (7.5-11.0) fl Segmented Neutrophils 83 H (36.0-66.0) % Band Neutrophils 5 H (0.0-2.0) % Lymphocytes (Manual) 10 L (24-44) % Monocytes (Manual) 2 (0.0-12.0) % Basophils (Manual) (0.0-1.0) % Toxic Granulation 1+ Platelet Estimate NORMAL (NORMAL) RBC Morphology ABNORMAL Anisocytosis 1+ Sodium 133 L (137-145) mmol/L Potassium 4.0 (3.5-5.1) mmol/L Chloride 89 L (98-107) mmol/L Carbon Dioxide 33 H (22-30) mmol/L Anion Gap 14.9 (5-15) MEQ/L BUN 80 H (7-17) mg/dL Creatinine 2.82 H (0.52-1.04) mg/dL Estimated GFR 16.9 ML/MIN Glucose 132 H (74-106) mg/dL POC Glucometer 206 H (74 to 106) mg/dL Lactic Acid (0.4-2.0) Calcium 8.3 L (8.4-10.2) mg/dL Magnesium (1.6-2.3) mg/dL Total Bilirubin (0.2-1.3) mg/dL AST (14-36) U/L ALT (0-35) U/L Alkaline Phosphatase (38-126) U/L NT-Pro-B Natriuret Pep (0-1800) pg/mL Serum Total Protein (6.3-8.2) g/dL Albumin (3.5-5.0) g/dL Urine Color (YELLOW) Urine Appearance (CLEAR) Urine pH (5-6) Ur Specific [place] (1.005-1.025) Urine Protein (Negative) Urine Ketones (NEGATIVE) Urine Blood (0-5) Jose/ul Urine Nitrite (NEGATIVE) Urine Bilirubin (NEGATIVE) Urine Urobilinogen (0-1) mg/dL Ur Leukocyte Esterase (NEGATIVE) Urine WBC (Auto) (0-5) /HPF Urine RBC (Auto) (0-2) /HPF U Hyaline Cast (Auto) (0-2) /LPF U Epithel Cells (Auto) (FEW) /HPF Urine Mucus (Auto) (NEGATIVE) /HPF Urine Culture Reflexed (NO) Urine Glucose (NEGATIVE) mg/dL SARS-CoV-2 (PCR) (NEGATIVE) 04/23/21 Range/Units 08:03 WBC (4.0-10.5) K/mm3 RBC (4.1-5.4) M/mm3 Hgb (12.0-16.0) gm/dl Hct (35-47) % MCV (78-100) fl MCH (26-32) pg MCHC (32-36) g/dl RDW (11.5-14.0) % Plt Count (150-450) K/mm3 MPV (7.5-11.0) fl Segmented Neutrophils (36.0-66.0) % Band Neutrophils (0.0-2.0) % Lymphocytes (Manual) (24-44) % Monocytes (Manual) (0.0-12.0) % Basophils (Manual) (0.0-1.0) % Toxic Granulation Platelet Estimate (NORMAL) RBC Morphology Anisocytosis Sodium (137-145) mmol/L Potassium (3.5-5.1) mmol/L Chloride (98-107) mmol/L Carbon Dioxide (22-30) mmol/L Anion Gap (5-15) MEQ/L BUN (7-17) mg/dL Creatinine (0.52-1.04) mg/dL Estimated GFR ML/MIN Glucose (74-106) mg/dL POC Glucometer 148 H (74 to 106) mg/dL Lactic Acid (0.4-2.0) Calcium (8.4-10.2) mg/dL Magnesium (1.6-2.3) mg/dL Total Bilirubin (0.2-1.3) mg/dL AST (14-36) U/L ALT (0-35) U/L Alkaline Phosphatase (38-126) U/L NT-Pro-B Natriuret Pep (0-1800) pg/mL Serum Total Protein (6.3-8.2) g/dL Albumin (3.5-5.0) g/dL Urine Color (YELLOW) Urine Appearance (CLEAR) Urine pH (5-6) Ur Specific [place] (1.005-1.025) Urine Protein (Negative) Urine Ketones (NEGATIVE) Urine Blood (0-5) Jose/ul Urine Nitrite (NEGATIVE) Urine Bilirubin (NEGATIVE) Urine Urobilinogen (0-1) mg/dL Ur Leukocyte Esterase (NEGATIVE) Urine WBC (Auto) (0-5) /HPF Urine RBC (Auto) (0-2) /HPF U Hyaline Cast (Auto) (0-2) /LPF U Epithel Cells (Auto) (FEW) /HPF Urine Mucus (Auto) (NEGATIVE) /HPF Urine Culture Reflexed (NO) Urine Glucose (NEGATIVE) mg/dL SARS-CoV-2 (PCR) (NEGATIVE) Microbiology 04/22/21 12:02 Urine Culture - Preliminary Catherized NO GROWTH TO DATE Accuchecks Date 04/22/21 - Radiology Impressions Radiology Exams & Impressions: Radiology Procedures Category Date Time Status CHEST 1 VIEW (PORTABLE) Stat Exams 04/22/21 09:45 Completed Assessment/Plan (1) Acute on chronic renal failure Current Visit: Yes Status: Acute Qualifiers: Acute renal failure type: unspecified Chronic kidney disease stage: unspecified stage Qualified Code(s): N17.9 - Acute kidney failure, unspecified; N18.9 - Chronic kidney disease, unspecified Assessment & Plan: gentle hydration, will follow. slight improvement in GFR since admission. Code(s): N17.9 - ACUTE KIDNEY FAILURE, UNSPECIFIED; N18.9 - CHRONIC KIDNEY DISEASE, UNSPECIFIED (2) Hypokalemia Current Visit: Yes Status: Acute Assessment & Plan: replaced potassium deficit Code(s): E87.6 - HYPOKALEMIA (3) CAD (coronary artery disease) of artery bypass graft Current Visit: No Status: Chronic Qualifiers: Code(s): I25.810 - ATHEROSCLEROSIS OF CABG W/O ANGINA PECTORIS (4) CHF (congestive heart failure) Current Visit: No Status: Chronic Code(s): I50.9 - HEART FAILURE, UNSPECIFIED (5) DM2 (diabetes mellitus, type 2) Current Visit: No Status: Chronic (6) Failure to thrive in adult Current Visit: Yes Status: Acute Assessment & Plan: needs ECF placement, noncompliant and family is clearly unable to care for her in the home.
[2021-04-23] MEDS ORDERED: NON-FORMULARY ITEM (Sitagliptin Phosphate [Januvia] 100 MG) PO SCH (10:00)
[2021-04-23] MEDS ORDERED: NON-FORMULARY ITEM (Sodium Bicarbonate 650 MG) PO SCH (10:00)
[2021-04-23] MEDS: Pepcid 20 MG VIAL IV SCH ×2 (10:23→21:23)
[2021-04-23] MEDS: LASIX 20 MG PO SCH ×2 (10:27→16:42)
[2021-04-23] MEDS: Januvia 50 MG PO SCH (10:27)
[2021-04-23] MEDS: ECOTRIN 81 MG PO SCH (10:28)
[2021-04-23] MEDS: Zaroxolyn 2.5 MG PO SCH (10:29)
[2021-04-23] MEDS: Lopressor 50 MG PO SCH ×2 (10:29→21:23)
[2021-04-23] MEDS: Apresoline 25 MG TABLET PO SCH ×3 (10:30→21:22)
[2021-04-23] MEDS: ZYLOPRIM 100 MG PO SCH (10:31)
[2021-04-23] MEDS: SODIUM BICARBONATE PO SCH (10:31)
[2021-04-23] MEDS: Bactroban OINTMENT TP SCH ×2 (10:35→21:21)
[2021-04-23 16:22] LABS: Folate (Folic Acid) 13.8 ng/mL (2.76 - >20)
[2021-04-24 05:06] LABS: Absolute Neutrophil Ct (ANC) 4.99 (1.4-6.9); BASOPHIL % 1.3 % (0.0-0.4); Basophil (Absolute #) 0.08 (0-0.4); Eosinophil % 0.3 % (0.00-5.0); Eosinophil (Absolute #) 0.02 (0-0.5); Hematocrit 24.5 % (35-47); Hemoglobin 7.7 gm/dl (12.0-16.0); Lymphocyte (Absolute #) 0.53 (1.0-4.6); Lymphocytes % 8.5 % (24.0-44.0); Mean Cell Volume 95.7 fl (78-100); Mean Corpuscular Hemoglobin 30.1 pg (26-32); Mean Corpuscular Hgb Concent. 31.4 g/dl (32-36); Monocyte (Absolute #) 0.59 (0.0-1.3); Monocytes % 9.5 % (0.0-12.0); Neutrophil % 80.4 % (36.0-66.0); Platelet Count 216 K/mm3 (150-450); Red Blood Count 2.56 M/mm3 (4.1-5.4); Red Cell Distribution Width 18.5 % (11.5-14.0); White Blood Count 6.2 K/mm3 (4.0-10.5)
[2021-04-24 05:33] LABS: Eosinophil 1 % (0.00-3.0); Lymphocytes 9 % (24-44); Microcytosis 1+; Monocyte 2 % (0.0-12.0); Neutrophils 88 % (36.0-66.0); Platelet Estimate NORMAL (NORMAL); Total Cells Counted 100
[2021-04-24 06:02] LABS: ANION GAP 14.2 MEQ/L (5-15); Calcium 8.5 mg/dL (8.4-10.2); Creatinine 1 2.64 mg/dL (0.52-1.04); EST GLOMERULAR FILTRATION RATE 18.3 ML/MIN; MAGNESIUM 2.1 mg/dL (1.6-2.3); Potassium 3.1 mmol/L (3.5-5.1)
--- NOTE | 2021-04-24 08:40 | PCM.NOTE ---
Date and Time: 04/24/21833 Subjective Assessment: Pt is "feeling good." no complaints. - Review of Systems Constitutional: No Fever Abdominal/Gastrointestinal: No Vomiting Objective Exam General Appearance: no apparent distress, alert Neurologic Exam: oriented x 3, cooperative Skin Exam: normal color, warm, dry, No rash Respiratory Exam: normal breath sounds, crackles/rales (bibasilar), No rhonchi, No wheezing Cardiovascular Exam: normal heart sounds, irregular, No murmur Gastrointestinal/Abdomen Exam: soft, normal bowel sounds, No tenderness, No distention, No mass, No guarding, No rebound Extremity Exam: No pedal edema, No swelling Back Exam: normal inspection, No rash OBJECTIVE DATA Vital Signs: Vital Signs - 24 hr Temp Pulse Resp BP Pulse Ox 04/24/21 04:42 97.1 F 88 16 123/57 93 L 04/24/21 03:49 18 04/23/21 23:51 98 F 56 L 20 90/51 95 04/23/21 23:50 18 04/23/21 20:00 16 04/23/21 19:09 97.6 F 55 L 16 116/54 100 04/23/21 16:00 97.9 F 68 16 112/77 97 04/23/21 12:00 97.0 F 62 18 124/56 98 Pain Assessment - Last Documented Pain Intensity 0 Pain Scale Used 0-10 Pain Scale Intake and Output: Intake & Output 04/21/21 04/22/21 04/23/21 04/24/21 11:59 11:59 11:59 11:59 Intake Total 1590 2271 Output Total 500 250 Balance 1090 2021 Weight 55.7 kg 55 kg 57.7 kg Lab Results: Lab Results-Last 24 Hours 04/23/21 04/23/21 04/23/21 Range/Units 04:15 04:15 11:43 WBC (4.0-10.5) K/mm3 RBC (4.1-5.4) M/mm3 Hgb (12.0-16.0) gm/dl Hct (35-47) % MCV (78-100) fl MCH (26-32) pg MCHC (32-36) g/dl RDW (11.5-14.0) % Plt Count (150-450) K/mm3 MPV (7.5-11.0) fl Gran % (36.0-66.0) % Eos # (Auto) (0-0.5) Absolute Lymphs (auto) (1.0-4.6) Absolute Monos (auto) (0.0-1.3) Lymphocytes % (24.0-44.0) % Monocytes % (0.0-12.0) % Eosinophils % (0.00-5.0) % Basophils % (0.0-0.4) % Absolute Granulocytes (1.4-6.9) Segmented Neutrophils (36.0-66.0) % Lymphocytes (Manual) (24-44) % Monocytes (Manual) (0.0-12.0) % Eosinophils (Manual) (0.00-3.0) % Basophils # (0-0.4) Platelet Estimate (NORMAL) RBC Morphology Microcytosis Sodium (137-145) mmol/L Potassium (3.5-5.1) mmol/L Chloride (98-107) mmol/L Carbon Dioxide (22-30) mmol/L Anion Gap (5-15) MEQ/L BUN (7-17) mg/dL Creatinine (0.52-1.04) mg/dL Estimated GFR ML/MIN Glucose (74-106) mg/dL POC Glucometer 189 H (74 to 106) mg/dL Calcium (8.4-10.2) mg/dL Magnesium (1.6-2.3) mg/dL Iron 58 (37-170) ug/dL Ferritin 709 H (11.1-264) ng/mL Vitamin B12 837 (239-931) pg/mL Folic Acid 13.8 (2.76 - >20) ng/mL 04/23/21 04/23/21 04/24/21 Range/Units 16:48 20:40 04:00 WBC 6.2 (4.0-10.5) K/mm3 RBC 2.56 L (4.1-5.4) M/mm3 Hgb 7.7 L (12.0-16.0) gm/dl Hct 24.5 L (35-47) % MCV 95.7 (78-100) fl MCH 30.1 (26-32) pg MCHC 31.4 L (32-36) g/dl RDW 18.5 H (11.5-14.0) % Plt Count 216 (150-450) K/mm3 MPV 10.0 (7.5-11.0) fl Gran % 80.4 H (36.0-66.0) % Eos # (Auto) 0.02 (0-0.5) Absolute Lymphs (auto) 0.53 L (1.0-4.6) Absolute Monos (auto) 0.59 (0.0-1.3) Lymphocytes % 8.5 L (24.0-44.0) % Monocytes % 9.5 (0.0-12.0) % Eosinophils % 0.3 (0.00-5.0) % Basophils % 1.3 (0.0-0.4) % Absolute Granulocytes 4.99 (1.4-6.9) Segmented Neutrophils 88 H (36.0-66.0) % Lymphocytes (Manual) 9 L (24-44) % Monocytes (Manual) 2 (0.0-12.0) % Eosinophils (Manual) 1 (0.00-3.0) % Basophils # 0.08 (0-0.4) Platelet Estimate NORMAL (NORMAL) RBC Morphology ABNORMAL Microcytosis 1+ Sodium (137-145) mmol/L Potassium (3.5-5.1) mmol/L Chloride (98-107) mmol/L Carbon Dioxide (22-30) mmol/L Anion Gap (5-15) MEQ/L BUN (7-17) mg/dL Creatinine (0.52-1.04) mg/dL Estimated GFR ML/MIN Glucose (74-106) mg/dL POC Glucometer 146 H 173 H (74 to 106) mg/dL Calcium (8.4-10.2) mg/dL Magnesium (1.6-2.3) mg/dL Iron (37-170) ug/dL Ferritin (11.1-264) ng/mL Vitamin B12 (239-931) pg/mL Folic Acid (2.76 - >20) ng/mL 04/24/21 04/24/21 Range/Units 04:25 07:42 WBC (4.0-10.5) K/mm3 RBC (4.1-5.4) M/mm3 Hgb (12.0-16.0) gm/dl Hct (35-47) % MCV (78-100) fl MCH (26-32) pg MCHC (32-36) g/dl RDW (11.5-14.0) % Plt Count (150-450) K/mm3 MPV (7.5-11.0) fl Gran % (36.0-66.0) % Eos # (Auto) (0-0.5) Absolute Lymphs (auto) (1.0-4.6) Absolute Monos (auto) (0.0-1.3) Lymphocytes % (24.0-44.0) % Monocytes % (0.0-12.0) % Eosinophils % (0.00-5.0) % Basophils % (0.0-0.4) % Absolute Granulocytes (1.4-6.9) Segmented Neutrophils (36.0-66.0) % Lymphocytes (Manual) (24-44) % Monocytes (Manual) (0.0-12.0) % Eosinophils (Manual) (0.00-3.0) % Basophils # (0-0.4) Platelet Estimate (NORMAL) RBC Morphology Microcytosis Sodium 134 L (137-145) mmol/L Potassium 3.1 L D (3.5-5.1) mmol/L Chloride 92 L (98-107) mmol/L Carbon Dioxide 31 H (22-30) mmol/L Anion Gap 14.2 (5-15) MEQ/L BUN 73 H (7-17) mg/dL Creatinine 2.64 H (0.52-1.04) mg/dL Estimated GFR 18.3 ML/MIN Glucose 151 H (74-106) mg/dL POC Glucometer 124 H (74 to 106) mg/dL Calcium 8.5 (8.4-10.2) mg/dL Magnesium 2.1 (1.6-2.3) mg/dL Iron (37-170) ug/dL Ferritin (11.1-264) ng/mL Vitamin B12 (239-931) pg/mL Folic Acid (2.76 - >20) ng/mL Radiology Exams: Radiology Procedures Category Date Time Status CHEST 1 VIEW (PORTABLE) Stat Exams 04/22/21 09:45 Completed Multi-Disciplinary Progress Notes: Multi-Disciplinary Progress Notes 04/23/21 16:05 (created 04/24/21 06:56) Case Management Note by Kathy Marino REFERRAL SENT TO [facility] PER FAMILY REQUEST FOR REHAB STAY Initialized on 04/24/21 06:56 - END OF NOTE 04/23/21 12:01 Case Management Note by Ayana Arriaza Addendum entered by Ayana Arriaza 04/23/21 13:28: PRIOR TO RECENT DECLINE PATIENT WAS COMPLETELY INDEPENDENT AT HOME WITH HER WALKER, NOT NEEDING ASSISTANCE Original Note: S/W DAUGHTER- REGARDING CASE MANAGEMENT NEEDS- SHE REPORTS PATIENT DOES NOT DO HER ADLS INDEPENDENTLY. SHE REPORST PATIENT REQUIRES ASSISTANCE OUT OF BED AND WITH DRESSING. SHE REPORTS SHE IS ABLE TO AMBULATE WITH HER WALKER BUT IS SLOW AND AT RISK FOR FALLING. DAUGHTER REPORTS SHE FEELS LIKE PATIENT NEEDS 24 HR CARE AT HOME. PATIENT HAS [facility]. THEY WERE NOTIFIED SHE WAS HERE. THEY WILL NEED NOTIFIED AT TIME OF DC AT [phone]. THEY WILL NEED FAXED THE DC INSTRUCTIONS, DC MED LIST, AND DC SUMMARY (IF AVAILABLE) FAXED TO THEM AT [phone] Initialized on 04/23/21 12:01 - END OF NOTE 04/23/21 11:30 (created 04/23/21 12:11) Case Management Note by Ayana Arriaza TS/W PRIMARY NURSE- SHE NOTES THAT PATIENT WILL SEEM A&O AT FIRST BUT WITH TIME S/W HER SHE NOTICES THAT SHE IS CONFUSED. SHE ALSO REPORTS AT NIGHT SHE IS E XTREMELY CONFUSED. WILL S/W PHYSICIAN ABOUT PATIENT'S LEVEL OF COMPETENCY Initialized on 04/23/21 12:11 - END OF NOTE Assessment/Plan (1) Anemia Current Visit: No Status: Acute Qualifiers: Anemia type: unspecified type Qualified Code(s): D64.9 - Anemia, un specified Assessment & Plan: Transfuse 1 unit PRBC. Code(s): D64.9 - ANEMIA, UNSPECIFIED (2) Acute on chronic renal failure Current Visit: Yes Status: Acute Qualifiers: Acute renal failure type: unspecified Chronic kidney disease stage: unspecified stage Qualified Code(s): N17.9 - Acute kidney failure, unspecified; N18.9 - Chronic kidney disease, unspecified Assessment & Plan: slow, mild improvements in kidney function - to 18.3 from 16.9 this morning. Will consult nephrology. Code(s): N17.9 - ACUTE KIDNEY FAILURE, UNSPECIFIED; N18.9 - CHRONIC KIDNEY DISEASE, UNSPECIFIED (3) Failure to thrive in adult Current Visit: Yes Status: Acute (4) Hypokalemia Current Visit: Yes Status: Chronic Code(s): E87.6 - HYPOKALEMIA (5) CAD (coronary artery disease) of artery bypass graft Current Visit: No Status: Chronic Qualifiers: [place] vs. transplanted heart: [place] heart Associated angina: without angina Qualified Code(s): I25.810 - Atherosclerosis of coronary artery bypass graft(s) without angina pectoris Code(s): I25.810 - ATHEROSCLEROSIS OF CABG W/O ANGINA PECTORIS (6) CHF (congestive heart failure) Current Visit: No Status: Chronic Code(s): I50.9 - HEART FAILURE, UNSPECIFIED (7) DM2 (diabetes mellitus, type 2) Current Visit: No Status: Chronic
[2021-04-24] MEDS: ZYLOPRIM 100 MG PO SCH (09:03)
[2021-04-24] MEDS: Apresoline 25 MG TABLET PO SCH ×3 (09:03→22:49)
[2021-04-24] MEDS: Zaroxolyn 2.5 MG PO SCH (09:03)
[2021-04-24] MEDS: Lopressor 50 MG PO SCH ×2 (09:03→22:49)
[2021-04-24] MEDS: Bactroban OINTMENT TP SCH ×2 (09:03→22:49)
[2021-04-24] MEDS: Pepcid 20 MG VIAL IV SCH ×2 (09:03→22:49)
[2021-04-24] MEDS: Januvia 50 MG PO SCH (09:03)
[2021-04-24] MEDS: ECOTRIN 81 MG PO SCH (09:03)
[2021-04-24] MEDS: LASIX 20 MG PO SCH ×2 (09:03→17:01)
[2021-04-24] MEDS: SODIUM BICARBONATE PO SCH (09:04)
[2021-04-24] MEDS: Klor Con 10 MEQ PO SCH (09:07)
[2021-04-24] MEDS ORDERED: Sodium Chloride 0.9% 500 ML 500 ML IV SCH (10:15)
[2021-04-24 10:39] LABS: ABO TYPING O; Antibody Screen NEGATIVE (NEGATIVE); RH TYPING NEGATIVE
[2021-04-24 10:40] LABS: CROSS MATCH (PRBC) COMPATIBLE (COMPATIBLE)
[2021-04-24 14:49] LABS: Hematocrit 30.4 % (35-47); Hemoglobin 9.8 gm/dl (12.0-16.0)
[2021-04-24] MEDS: Sodium Chloride 0.9% W/ 20 mEq KCl/LITER 1,000 ML IV SCH (17:02)
[2021-04-25] MEDS: TYLENOL 325 MG PO PRN ×2 (01:23→21:40)
--- NOTE | 2021-04-25 09:47 | PCM.NOTE ---
Date and Time: 04/25/21942 Subjective Assessment: patient states she feels well today, no specific complaints. she insists she wants to go home and not go to a [facility]. she has periods where she is disoriented and significantly demented, mostly at night but is lucid and able to function during the day. Objective Exam General Appearance: no apparent distress Neurologic Exam: alert, cooperative Respiratory Exam: normal breath sounds, lungs clear, No respiratory distress Cardiovascular Exam: regular rate/rhythm, normal heart sounds Gastrointestinal/Abdomen Exam: soft, No tenderness, No mass Extremity Exam: normal inspection, normal range of motion OBJECTIVE DATA Vital Signs: Vital Signs - 24 hr Temp Pulse Resp BP Pulse Ox 04/25/21 07:00 97.5 F 57 L 18 132/62 99 04/25/21 03:00 98.1 F 65 18 119/55 97 04/24/21 23:00 98 F 69 16 136/60 96 04/24/21 19:30 97.8 F 74 18 109/57 97 04/24/21 18:00 98.0 F 63 16 115/53 100 04/24/21 14:57 63 115/53 04/24/21 11:00 98.0 F 66 16 111/56 100 Pain Assessment - Last Documented Pain Intensity 0 Pain Scale Used [facility] Intake and Output: Intake & Output 04/22/21 04/23/21 04/24/21 04/25/21 11:59 11:59 11:59 11:59 Intake Total 1590 2271 1220 Output Total 414 486 1978 Balance 1090 1721 -1030 Weight 55.7 kg 55 kg 57.7 kg Lab Results: Lab Results-Last 24 Hours 04/24/21 04/24/21 04/24/21 Range/Units 09:40 11:50 14:45 Hgb 9.8 L D (12.0-16.0) gm/dl Hct 30.4 L (35-47) % POC Glucometer 122 H (74 to 106) mg/dL ABO Group O Rh Factor NEGATIVE Antibody Screen NEGATIVE (NEGATIVE) Crossmatch COMPATIBLE (COMPATIBLE) 04/24/21 04/24/21 04/25/21 Range/Units 15:49 21:06 06:57 Hgb (12.0-16.0) gm/dl Hct (35-47) % POC Glucometer 138 H 181 H 128 H (74 to 106) mg/dL ABO Group Rh Factor Antibody Screen (NEGATIVE) Crossmatch (COMPATIBLE) Multi-Disciplinary Progress Notes: Multi-Disciplinary Progress Notes 04/24/21 17:15 Physical Therapy Note by Mary Anguiano PT. SEEN BY PT BID THIS DATE. SUPINE TO SIT PERFORMED W/ CGA-MIN ASSIST; SOME DIFFICULTY NOTED W/ MOVING OUT OF HOSPITAL BED. SIT TO STAND MOD I. PT. DEMONSTRATED PROPER HAND POSITIONING FROM BED W/ SIT TO STAND. PT. AMBULATED ~ 40' W/ ROLLER WALKER THIS AM AND CGA-SBA. SHORT DISTANCE PT'S HEMGLOBIN WAS ~ 7 AND WAS TO RECEIVED BLOOD TRANSFUSION. PT RECEIVED INFUSION AND HGB WAS WNL. PT. AGREEABLE TO P.T. THIS PM. PERFORMED BED MOBILITY W/ CGA-MIN ASSIST D/T HOSPITAL BED; AMBULATED TO BATHROM W/ SBA; PERFORMED TOILET TRANSFER W/ CGA- SBA D/T SLIGHT UNSTEADINESS AND DECREASED PT. CONFIDENCE W/ HAND POSITIONING IN BATHROOM. PT. AMBULATED 160' W/ ROLLR WALKER AND SBA. NL STRIDE LENGTH AND RHIANNON. NO INSTABILITY W/ NEGOTIATING TURNS. FEEL SLIGHT UNSTEADINESS W/ TRANSFERS D/T DEMENTIA AND DECREASED SAFETY AWARENESS WHICH IMPROVES W/ V.C. WILL CONT. W/ PT UNTIL D/C. AWAITING INSURANCE DECISION RE: SNF STAY FOR REHAB. Initialized on 04/24/21 17:15 - END OF NOTE 04/24/21 11:47 Case Management Note by Emily Evans AND THIS NURSE SPOKE WITH ASHLIE ABOUT POSSIBLE INSURANCE REFUSAL FOR REHAB STAY, PER AMAYA. DISCUSSED OPTIONS FOR PRIVATE PAY VS. PROVATE PAY SITTERS IN THE HOME. DAUGHTER STATES SHE NEEDS TO SPEAK WITH OTHER SIBLINGS. ENCOURAGED HER TO BEGIN CONVERSATION FOR PLAN IF INSURANCE DOES NOT APPROVE REHAB STAY, SHE DOES NOT FEEL THE PT WILL BE SAFE AT HOME ALONE WITHOUT 24/7 CARE. Initialized on 04/24/21 11:47 - END OF NOTE Assessment/Plan (1) Acute on chronic renal failure Current Visit: Yes Status: Acute Qualifiers: Acute renal failure type: unspecified Chronic kidney disease stage: unspecified stage Qualified Code(s): N17.9 - Acute kidney failure, unspecified; N18.9 - Chronic kidney disease, unspecified Assessment & Plan: Dr Baker consulted, recheck labs today. Code(s): N17.9 - ACUTE KIDNEY FAILURE, UNSPECIFIED; N18.9 - CHRONIC KIDNEY DISEASE, UNSPECIFIED (2) Hypokalemia Current Visit: Yes Status: Chronic Assessment & Plan: replaced Code(s): E87.6 - HYPOKALEMIA (3) CAD (coronary artery disease) of artery bypass graft Current Visit: No Status: Chronic Qualifiers: [place] vs. transplanted heart: [place] heart Associated angina: without angina Qualified Code(s): I25.810 - Atherosclerosis of coronary artery bypass graft(s) without angina pectoris Code(s): I25.810 - ATHEROSCLEROSIS OF CABG W/O ANGINA PECTORIS (4) CHF (congestive heart failure) Current Visit: No Status: Chronic Assessment & Plan: appears euvolemic on exam currently Code(s): I50.9 - HEART FAILURE, UNSPECIFIED (5) DM2 (diabetes mellitus, type 2) Current Visit: No Status: Chronic (6) Dementia Current Visit: Yes Status: Acute Assessment & Plan: patient's mental status waxes and wanes significantly. spoke with daughter Radha as insurance won't cover rehab stay unless patient needs 1 1/2 hours of therapy per day, she will need sitters at home or assisted living. family will discuss, sounds like they will arrange caretakers, has [facility] Code(s): F03.90 - UNSPECIFIED DEMENTIA WITHOUT BEHAVIORAL DISTURBANCE
[2021-04-25] MEDS: Apresoline 25 MG TABLET PO SCH ×3 (09:59→21:23)
[2021-04-25] MEDS: LASIX 20 MG PO SCH (09:59)
[2021-04-25] MEDS: ECOTRIN 81 MG PO SCH (09:59)
[2021-04-25] MEDS: Lopressor 50 MG PO SCH ×2 (09:59→21:25)
[2021-04-25] MEDS: Klor Con 10 MEQ PO SCH ×2 (09:59→21:25)
[2021-04-25] MEDS: ZYLOPRIM 100 MG PO SCH (09:59)
[2021-04-25] MEDS: Januvia 50 MG PO SCH (09:59)
[2021-04-25] MEDS: Zaroxolyn 2.5 MG PO SCH (09:59)
[2021-04-25] MEDS: Pepcid 20 MG VIAL IV SCH ×3 (10:00→21:42)
[2021-04-25] MEDS: SODIUM BICARBONATE PO SCH (10:00)
[2021-04-25] MEDS: Bactroban OINTMENT TP SCH ×2 (10:10→21:24)
[2021-04-25 11:28] LABS: ANION GAP 14.2 MEQ/L (5-15); Calcium 8.7 mg/dL (8.4-10.2); Creatinine 1 2.22 mg/dL (0.52-1.04); EST GLOMERULAR FILTRATION RATE 22.3 ML/MIN
[2021-04-25 11:35] LABS: Hematocrit 27.3 % (35-47); Hemoglobin 8.9 gm/dl (12.0-16.0); Mean Cell Volume 91.6 fl (78-100); Mean Corpuscular Hemoglobin 29.9 pg (26-32); Mean Corpuscular Hgb Concent. 32.6 g/dl (32-36); Mean Platelet Volume 9.9 fl (7.5-11.0); Platelet Count 225 K/mm3 (150-450); Red Blood Count 2.98 M/mm3 (4.1-5.4); Red Cell Distribution Width 17.8 % (11.5-14.0); White Blood Count 6.5 K/mm3 (4.0-10.5)
[2021-04-25] MEDS ORDERED: K-LYTE 25 MEQ PO ONE (14:00)
[2021-04-25 14:06] LABS: Lymphocytes 12 % (24-44); Monocyte 7 % (0.0-12.0); Neutrophils 81 % (36.0-66.0); Platelet Estimate NORMAL (NORMAL); Total Cells Counted 100; Toxic Granulation 1+
[2021-04-25 14:07] LABS: ANISOCYTOSIS 1+; Microcytosis 1+
[2021-04-25 15:13] LABS: Methylmalonic Acid 632 nmol/L (0-378)
--- NOTE | 2021-04-25 15:38 | CONS ---
CONSULT DATE: 04/25/2021 REASON FOR CONSULT: Evaluation of acute kidney injury and hypokalemia. HISTORY: Miss Carolina Pisano is an 85 year-old lady who is well known to me. The patient has history of chronic kidney disease stage IV. Last available creatinine in the office in December was around 2.4 mg%. She is very noncompliant. She has EF of about 50%, status post coronary artery bypass graft, chronic gout. Misses office appointments. She is on high dose diuretics because of potential for leg swelling. The patient was feeling and was admitted through the emergency room. Creatinine was more than 3. The patient was given IV diuretics. Creatinine today is 2.2 mg%. Given her high creatinine, not feeling well, a renal consultation was called. REVIEW OF SYSTEMS: The patient states that she did not have any chest pain, cough, shortness of breath, swelling in the legs was much better than what it had been. Hemoglobin was low at 8.9. Blood sugar was around 170. Sodium levels were 131. No vomiting or diarrhea. She was feeling weak but no focal weaknesses. No reported seizures. No blurry vision. Rest of the system review was negative. All systems were reviewed and pertinent mentioned here. PAST MEDICAL HISTORY: Diabetes mellitus type II. Congestive heart failure. Hypertension. chronic gout. History of dementia. Coronary artery disease. Osteoarthritis. PAST SURGICAL HISTORY: History of cardiac catheterization. Cardiac stent. Hysterectomy. Lumpectomy because of breast cancer. MEDICATIONS: Home medications were reviewed and they included Lasix 60 mg b.i.d., Metolazone 2.5 mg daily, Allopurinol 100 mg daily, hydralazine 50 t.i.d., sodium bicarbonate 650 mg daily. ALLERGIES: NKDA. SOCIAL HISTORY: Nonsmoker. Relatively noncompliant, has poor insight. PHYSICAL EXAMINATION: Reveals a lady who was seen on Med/Surg floor. Vital signs were reviewed. HEENT: Normocephalic, atraumatic, pale conjunctivae. NECK: Supple. CHEST: Clear. CVS: S1, S2 normal. ABDOMEN: Soft, nontender. No organomegaly. EXTREMITIES: No cyanosis, clubbing or edema. SKIN: No skin rash. Skin turgor is decreased. MUSCULOSKELETAL: No acute joint swelling or redness noted. NEUROLOGIC: Alert, awake, oriented x3. No asterixis. LAB DATA AND TESTS: Labs were reviewed and pertinent labs at this time: Hemoglobin 8.9, creatinine 2.22. ASSESSMENT: 1) Acute kidney injury on chronic kidney disease stage IV: Renal function back to baseline at this time. At discharge we will need to titrate her diuretics. We will probably reduce Lasix to 40 mg twice a day and reduce metolazone to twice a week instead of every day. Bicarb levels are normal and no fluid overload. The patient is non-oliguric. No need for renal replacement therapy. No worse signs of edema. 2) Hypokalemia because of aggressive diuresis. Continue to replace potassium, monitor magnesium levels. 3) Hyponatremia because of free fluid intake, low osmolar diet, use of metolazone. Would recommend 1500 fluid restriction at discharge. Would recommend cutting back on metolazone to twice weekly. 4) Anemia, not otherwise specified: Monitor iron profile, need for IV iron and support in supplementation. 5) Diabetes mellitus type II: Management as per Dr. Milan. I will closely follow the patient. Follow up in the office.
[2021-04-25 16:40] LABS: Folate (Folic Acid) 14.3 ng/mL (2.76 - >20)
[2021-04-25] MEDS ORDERED: RETACRIT SQ SCH (17:00)
[2021-04-25] MEDS: Lasix 40 MG PO SCH (17:38)
[2021-04-25] MEDS: Sodium Chloride 0.9% W/ 20 mEq KCl/LITER 1,000 ML IV SCH (19:27)
[2021-04-26] MEDS: TYLENOL 325 MG PO PRN (02:11)
[2021-04-26] MEDS: Sodium Chloride 0.9% W/ 20 mEq KCl/LITER 1,000 ML IV SCH (02:57)
[2021-04-26 05:03] LABS: Hematocrit 25.4 % (35-47); Hemoglobin 8.2 gm/dl (12.0-16.0); Mean Corpuscular Hgb Concent. 32.3 g/dl (32-36); Mean Platelet Volume 9.7 fl (7.5-11.0); Platelet Count 201 K/mm3 (150-450); Red Blood Count 2.73 M/mm3 (4.1-5.4); Red Cell Distribution Width 17.6 % (11.5-14.0); White Blood Count 4.6 K/mm3 (4.0-10.5)
[2021-04-26 05:17] LABS: ANION GAP 11.8 MEQ/L (5-15); Calcium 8.7 mg/dL (8.4-10.2); Creatinine 1 2.36 mg/dL (0.52-1.04); EST GLOMERULAR FILTRATION RATE 20.8 ML/MIN; MAGNESIUM 1.8 mg/dL (1.6-2.3); Potassium 3.1 mmol/L (3.5-5.1)
[2021-04-26 06:52] VITALS: BP 115/57; PULSE 62; O2SAT 98
[2021-04-26] MEDS ORDERED: K-LYTE 25 MEQ PO ONE (09:30)
--- NOTE | 2021-04-26 09:33 | PCM.DS ---
Discharge Summary Date of Admission: 04/22/21 17:22 Admitting Physician: NIDHI PIZARRO Consults: Consults on Case 04/24/21 08:41 Consult Nephrology ROUTINE Primary Care Provider: ALYSSA BARGER TASNEEM Allergies Allergies No Known Drug Allergies Allergy (Verified 04/22/21 17:35) Hospital Summary - Hospital Course Hospital Course: patient admitted, has failure to thrive, some mild dementia at times and history of chronic kidney disease and chf, her kidney function was increased above baseline, Dr Baker consulted and made recommendations. insurance denies rehab stay, she has home health and family will arrange sitters for night. - Vitals & Intake/Output Vital Signs: Vital Signs Temperature 98.2 F 04/26/21 06:51 Pulse Rate 62 04/26/21 06:51 Respiratory Rate 18 04/26/21 06:51 Blood Pressure 115/57 04/26/21 06:51 O2 Sat by Pulse Oximetry 98 04/26/21 06:51 Intake & Output: Intake & Output 04/23/21 04/24/21 04/25/21 04/26/21 11:59 11:59 11:59 11:59 Intake Total 1590 2271 1220 700 Output Total 602 647 6467 1400 Balance 1090 1721 -1030 -700 Weight 55 kg 57.7 kg 58.2 kg 58.6 kg - Lab Result Diagrams: 04/26/21 04:22 04/26/21 04:22 Lab Results-Last 24 Hrs: Lab Results-Last 24 Hours 04/23/21 04/25/21 04/25/21 Range/Units 04:15 11:00 11:14 WBC 6.5 (4.0-10.5) K/mm3 RBC 2.98 L (4.1-5.4) M/mm3 Hgb 8.9 L (12.0-16.0) gm/dl Hct 27.3 L (35-47) % MCV 91.6 (78-100) fl MCH 29.9 (26-32) pg MCHC 32.6 (32-36) g/dl RDW 17.8 H (11.5-14.0) % Plt Count 225 (150-450) K/mm3 MPV 9.9 (7.5-11.0) fl Segmented Neutrophils 81 H (36.0-66.0) % Lymphocytes (Manual) 12 L (24-44) % Monocytes (Manual) 7 (0.0-12.0) % Toxic Granulation 1+ Platelet Estimate NORMAL (NORMAL) RBC Morphology ABNORMAL Anisocytosis 1+ Microcytosis 1+ Sodium (137-145) mmol/L Potassium (3.5-5.1) mmol/L Chloride (98-107) mmol/L Carbon Dioxide (22-30) mmol/L Anion Gap (5-15) MEQ/L BUN (7-17) mg/dL Creatinine (0.52-1.04) mg/dL Estimated GFR ML/MIN Glucose (74-106) mg/dL POC Glucometer 162 H (74 to 106) mg/dL Calcium (8.4-10.2) mg/dL Magnesium (1.6-2.3) mg/dL Iron (37-170) ug/dL Vitamin B12 (239-931) pg/mL Methylmalonic Acid 632 H (0-378) nmol/L MMA Disclaimer Comment (.) Folic Acid (2.76 - >20) ng/mL 04/25/21 04/25/21 04/25/21 Range/Units 11:14 11:14 11:14 WBC (4.0-10.5) K/mm3 RBC (4.1-5.4) M/mm3 Hgb (12.0-16.0) gm/dl Hct (35-47) % MCV (78-100) fl MCH (26-32) pg MCHC (32-36) g/dl RDW (11.5-14.0) % Plt Count (150-450) K/mm3 MPV (7.5-11.0) fl Segmented Neutrophils (36.0-66.0) % Lymphocytes (Manual) (24-44) % Monocytes (Manual) (0.0-12.0) % Toxic Granulation Platelet Estimate (NORMAL) RBC Morphology Anisocytosis Microcytosis Sodium 131 L (137-145) mmol/L Potassium 3.0 L* (3.5-5.1) mmol/L Chloride 91 L (98-107) mmol/L Carbon Dioxide 30 (22-30) mmol/L Anion Gap 14.2 (5-15) MEQ/L BUN 62 H (7-17) mg/dL Creatinine 2.22 H (0.52-1.04) mg/dL Estimated GFR 22.3 ML/MIN Glucose 170 H (74-106) mg/dL POC Glucometer (74 to 106) mg/dL Calcium 8.7 (8.4-10.2) mg/dL Magnesium (1.6-2.3) mg/dL Iron 34 L (37-170) ug/dL Vitamin B12 839 (239-931) pg/mL Methylmalonic Acid (0-378) nmol/L MMA Disclaimer (.) Folic Acid 14.3 (2.76 - >20) ng/mL 04/25/21 04/25/21 04/25/21 Range/Units 16:22 16:55 21:15 WBC (4.0-10.5) K/mm3 RBC (4.1-5.4) M/mm3 Hgb (12.0-16.0) gm/dl Hct (35-47) % MCV (78-100) fl MCH (26-32) pg MCHC (32-36) g/dl RDW (11.5-14.0) % Plt Count (150-450) K/mm3 MPV (7.5-11.0) fl Segmented Neutrophils (36.0-66.0) % Lymphocytes (Manual) (24-44) % Monocytes (Manual) (0.0-12.0) % Toxic Granulation Platelet Estimate (NORMAL) RBC Morphology Anisocytosis Microcytosis Sodium (137-145) mmol/L Potassium 4.1 D (3.5-5.1) mmol/L Chloride (98-107) mmol/L Carbon Dioxide (22-30) mmol/L Anion Gap (5-15) MEQ/L BUN (7-17) mg/dL Creatinine (0.52-1.04) mg/dL Estimated GFR ML/MIN Glucose (74-106) mg/dL POC Glucometer 139 H 131 H (74 to 106) mg/dL Calcium (8.4-10.2) mg/dL Magnesium (1.6-2.3) mg/dL Iron (37-170) ug/dL Vitamin B12 (239-931) pg/mL Methylmalonic Acid (0-378) nmol/L MMA Disclaimer (.) Folic Acid (2.76 - >20) ng/mL 04/26/21 04/26/21 04/26/21 Range/Units 04:22 04:22 06:27 WBC 4.6 (4.0-10.5) K/mm3 RBC 2.73 L (4.1-5.4) M/mm3 Hgb 8.2 L (12.0-16.0) gm/dl Hct 25.4 L (35-47) % MCV 93.0 (78-100) fl MCH 30.0 (26-32) pg MCHC 32.3 (32-36) g/dl RDW 17.6 H (11.5-14.0) % Plt Count 201 (150-450) K/mm3 MPV 9.7 (7.5-11.0) fl Segmented Neutrophils (36.0-66.0) % Lymphocytes (Manual) (24-44) % Monocytes (Manual) (0.0-12.0) % Toxic Granulation Platelet Estimate (NORMAL) RBC Morphology Anisocytosis Microcytosis Sodium 131 L (137-145) mmol/L Potassium 3.1 L D (3.5-5.1) mmol/L Chloride 89 L (98-107) mmol/L Carbon Dioxide 33 H (22-30) mmol/L Anion Gap 11.8 (5-15) MEQ/L BUN 64 H (7-17) mg/dL Creatinine 2.36 H (0.52-1.04) mg/dL Estimated GFR 20.8 ML/MIN Glucose 210 H (74-106) mg/dL POC Glucometer 179 H (74 to 106) mg/dL Calcium 8.7 (8.4-10.2) mg/dL Magnesium 1.8 (1.6-2.3) mg/dL Iron (37-170) ug/dL Vitamin B12 (239-931) pg/mL Methylmalonic Acid (0-378) nmol/L MMA Disclaimer (.) Folic Acid (2.76 - >20) ng/mL Micro Results-Entire Visit: Microbiology 04/22/21 12:02 Urine Culture - Final Catherized NO GROWTH 04/22/21 09:57 Blood Culture - Preliminary Blood NO GROWTH TO DATE Accuchecks Date 04/25/21 Date 04/25/21 Date 04/25/21 Time 21:38 - Procedures and Test Procedures and Tests throughout Hospitalization: Therapy Orders & Screens 04/22/21 20:57 Respiratory Therapy Assessment DAILY Comment: Diagnosis: Acute on chronic renal failure; hypokalemia 04/23/21 11:58 PT Eval & Treat ( Order) ONCE Reason for Eval:: WEAKNESS Diagnosis: Acute on chronic renal failure; hypokalemia Discharge Exam General Appearance: no apparent distress Neurologic Exam: alert, cooperative Respiratory Exam: normal breath sounds, lungs clear, No respiratory distress Cardiovascular Exam: regular rate/rhythm, normal heart sounds Gastrointestinal/Abdomen Exam: soft, No tenderness, No mass Extremity Exam: normal inspection, normal range of motion Skin Exam: normal color, warm, dry Final Diagnosis/Problem List - Final Discharge Diagnosis/Problem (1) Acute on chronic renal failure Current Visit: Yes Status: Acute Code(s): N17.9 - ACUTE KIDNEY FAILURE, UNSPECIFIED; N18.9 - CHRONIC KIDNEY DISEASE, UNSPECIFIED (2) Hypokalemia Current Visit: Yes Status: Chronic Code(s): E87.6 - HYPOKALEMIA (3) CAD (coronary artery disease) of artery bypass graft Current Visit: No Status: Chronic Code(s): I25.810 - ATHEROSCLEROSIS OF CABG W/O ANGINA PECTORIS (4) CHF (congestive heart failure) Current Visit: No Status: Chronic Code(s): I50.9 - HEART FAILURE, UNSPE CIFIED (5) DM2 (diabetes mellitus, type 2) Current Visit: No Status: Chronic (6) Dementia Current Visit: Yes Status: Acute Code(s): F03.90 - UNSPECIFIED DEMENTIA WITHOUT BEHAVIORAL DISTURBANCE - Discharge Disposition: Home, Self-Care Condition: Stable Prescriptions: New Potassium Chloride 10 Meq Tab* [Klor Con 10 MEQ] 10 meq PO BID #60 tab Furosemide 40 mg [Lasix 40 MG] 40 mg PO BID DIURETIC #60 tablet Metolazone 2.5 mg [Zaroxolyn 2.5 MG] 2.5 mg PO MoTh #8 tablet Continue Metoprolol Tartrate 50 mg [Lopressor 50 MG] 50 mg PO BID Sitagliptin Phosphate [Januvia] 100 mg PO DAILY Hydralazine HCl 50 mg PO TID Sodium Bicarbonate 650 mg PO DAILY Allopurinol 100 mg [Zyloprim 100 mg] 100 mg PO DAILY #30 tablet Mupirocin [Bactroban OINTMENT] 22 gm TP BID Aspirin EC 81 mg [Ecotrin 81 mg] 81 mg PO DAILY Discontinued Furosemide 40 mg [Lasix 40 MG] 60 mg PO BID metOLazone [Metolazone] 2.5 mg PO DAILY Follow up with: GENESIS BAKER [CONSULTING PHYSICIAN] - 1 Week (Follow up 7-10 days after discharge.)
[2021-04-26] MEDS ORDERED: Zaroxolyn 2.5 MG PO SCH (10:00)
[2021-04-26] MEDS: Apresoline 25 MG TABLET PO SCH (10:04)
[2021-04-26] MEDS: Klor Con 10 MEQ PO SCH (10:04)
[2021-04-26] MEDS: ZYLOPRIM 100 MG PO SCH (10:04)
[2021-04-26] MEDS: Januvia 50 MG PO SCH (10:04)
[2021-04-26] MEDS: Lasix 40 MG PO SCH (10:04)
[2021-04-26] MEDS: ECOTRIN 81 MG PO SCH (10:04)
[2021-04-26] MEDS: Lopressor 50 MG PO SCH (10:04)
[2021-04-26] MEDS: Bactroban OINTMENT TP SCH (10:04)
[2021-04-26] MEDS: SODIUM BICARBONATE PO SCH (10:06)
[2021-04-26] MEDS: Pepcid 20 MG VIAL IV SCH (10:09)
[2021-04-26 14:09] LABS: ANISOCYTOSIS 1+; BAND 2 % (0.0-2.0); Lymphocytes 14 % (24-44); Monocyte 3 % (0.0-12.0); Neutrophils 81 % (36.0-66.0); Platelet Estimate NORMAL (NORMAL); Total Cells Counted 100
== END 2021-04-26 12:05 | disposition home or self-care (01) ==
LOC: ED 09:01 → MED SURG 17:22
PROVIDERS: ADMIT General Practice; ATTEND Family Medicine
DX: N17.9 Acute kidney failure, unspecified (principal); I13.0 Hypertensive heart and chronic kidney disease with heart failure and stage 1 through stage 4 chronic kidney disease, or unspecified chronic kidney disease; E11.22 Type 2 diabetes mellitus with diabetic chronic kidney disease; N18.4 Chronic kidney disease, stage 4 (severe); R41.0 Disorientation, unspecified; Z79.899 Other long term (current) drug therapy; E87.6 Hypokalemia; M79.89 Other specified soft tissue disorders; E87.1 Hypo-osmolality and hyponatremia; D64.9 Anemia, unspecified; R62.7 Adult failure to thrive; F03.90 Unspecified dementia, unspecified severity, without behavioral disturbance, psychotic disturbance, mood disturbance, and anxiety; I25.810 Atherosclerosis of coronary artery bypass graft(s) without angina pectoris; Z20.828 Contact with and (suspected) exposure to other viral communicable diseases
CPT/HCPCS: 36415; 36430; 71045; 80048; 80053; 81001; 82607; 82728; 82746; 82947; 83540; 83605; 83735; 83880; 83921; 84132; 85014; 85018; 85025; 86850; 86900; 86901; 86922; 87040; 87086; 93268; 94760; 96360; 96365; 96366; 96374; 96375; 97161; 97530; 99285; G0378; P9016; U0003; J1817; J2270; J2405; J3480; A9270-GY; Q5106

== ENCOUNTER 2021-10-06 18:05 | Observation (INO) | payer MEDICARE ==
[2021-10-06 19:22] LABS: Hematocrit 30.9 % (35-47); Hemoglobin 10.5 gm/dl (12.0-16.0); Mean Cell Volume 95.7 fl (78-100); Mean Corpuscular Hemoglobin 32.5 pg (26-32); Mean Platelet Volume 9.3 fl (7.5-11.0); Platelet Count 221 K/mm3 (150-450); Red Blood Count 3.23 M/mm3 (4.1-5.4); Red Cell Distribution Width 17.8 % (11.5-14.0); White Blood Count 3.2 K/mm3 (4.0-10.5)
--- NOTE | 2021-10-06 19:34 | ERPHSYRPT ---
- History of Present Illness Time Seen by Provider: 10/06/21 18:13 Source: patient Exam Limitations: no limitations Patient Subjective Stated Complaint: PT states "I hurt all over and I do not feel good." Triage Nursing Assessment: Pt presented alert and oriented X 3, skin pwd pt ambulates with an upright steady gait, able to speak in clear full sentences pt has intermittant cough. pt slightly anxious. Physician History: 86 years old female with multiple medical problems presented in the ER chief complaint of generalized weakness fatigue tiredness and not feeling well. Patient reports she is hurting all over. Family reports she is lying on the bed for the last 3 to 4 days and not acting herself with decreased oral intake. Unvaccinated for COVID-19 and has a positive contact with known COVID-19. Has chronic lower extremity pains it is not any worse than usual. Not a good historian and history is limited. Timing/Duration: week(s), worse Severity: moderate Associated Symptoms: denies symptoms Allergies/Adverse Reactions: No Known Drug Allergies Allergy (Verified 04/22/21 17:35) Home Medications: Metoprolol Tartrate 50 mg [Lopressor 50 MG] 50 mg PO BID 02/12/19 [History] Sitagliptin Phosphate [Januvia] 100 mg PO DAILY 02/12/19 [History] Hydralazine HCl 50 mg PO TID 10/08/19 [History] Sodium Bicarbonate 650 mg PO DAILY 03/11/21 [History] Aspirin EC 81 mg [Ecotrin 81 mg] 81 mg PO DAILY 04/22/21 [History] Mupirocin [Bactroban OINTMENT] 22 gm TP BID 04/22/21 [History] Hx Tetanus, Diphtheria Vaccination/Date Given: Yes Hx Influenza Vaccination/Date Given: Yes Hx Pneumococcal Vaccination/Date Given: No Immunizations Up to Date: Yes Travel Risk - International Travel Have you traveled outside of the country in past 3 weeks: No - Coronavirus Screening Are you exhibiting any of the following symptoms?: No Close contact with a COVID-19 positive Pt in past 14-21 Days: No - Vaccine Status Have you recieved a Covid-19 vaccination: No - Review of Systems Constitutional: No Symptoms Eyes: No Symptoms Ears, Nose, & Throat: No Symptoms Respiratory: No Symptoms Cardiac: No Symptoms Abdominal/Gastrointestinal: No Symptoms Genitourinary Symptoms: No Symptoms Musculoskeletal: Myalgias Skin: No Symptoms Neurological: No Symptoms Psychological: No Symptoms Endocrine: No Symptoms Hematologic/Lymphatic: No Symptoms Immunological/Allergic: No Symptoms - Past Medical History Pertinent Past Medical History: Yes Neurological History: Dementia ENT History: No Pertinent History Cardiac History: Arrhythmia, Coronary Artery Disease, Hypertension, Myocardial Infarction ([place]) Respiratory History: CHF Endocrine Medical History: Diabetes Type II Musculoskeletal History: Osteoarthritis GI Medical History: Other History: Renal Disease Psycho-Social History: No Pertinent History Female Reproductive Disorders: No Pertinent History Other Medical History: CARDIAC STENT 01/02; Enlarged liver, open heart surgery 12/08/18 - Past Surgical History Past Surgical History: Yes Neuro Surgical History: No Pertinent History Cardiac: Angioplasty, CABG, Cardiac Catheterization, Cardiac Stent Respiratory: No Pertinent History Gastrointestinal: No Pertinent History Genitourinary: No Pertinent History Musculoskeletal: Other Female Surgical History: Hysterectomy Other Surgical History: cardiac stent x three December. CABG x 4 vessels in , wound care for bilateral legs within the last year - Social History Smoking Status: Never smoker Exposure to second hand smoke: No Drug Use: none Patient Lives Alone: Yes - Female History Hx Now: No - Nursing Vital Signs Nursing Vital Signs: Initial Vital Signs Temperature 97.9 F 10/06/21 18:09 Pulse Rate 74 10/06/21 18:09 Respiratory Rate 20 10/06/21 18:09 Blood Pressure 168/70 10/06/21 18:09 O2 Sat by Pulse Oximetry 97 10/06/21 18:09 Pain Scale Pain Intensity 7 - Physical Exam General Appearance: no apparent distress, alert, anxiety Eye Exam: PERRL/EOMI, eyes nml inspection Ears, Nose, Throat Exam: normal ENT inspection, TMs normal, pharynx normal, moist mucous membranes Neck Exam: normal inspection, non-tender, supple, full range of motion Respiratory Exam: normal breath sounds, rhonchi Cardiovascular Exam: regular rate/rhythm, normal heart sounds Gastrointestinal/Abdomen Exam: soft, normal bowel sounds, No tenderness Back Exam: normal inspection, normal range of motion Extremity Exam: normal inspection, normal range of motion Neurologic Exam: alert, oriented x 3, cooperative, cable tv installer II-XII nml as tested Skin Exam: normal color SpO2 Interpretation: normal SpO2: 97 O2 Delivery: Room Air - Course EKG Interpreted by Me: RATE, Sinus Rhythm, NORMAL AXIS, prolonged QT interval, Non-specific ST Changes, Other (Diffuse T wave inversions) Ordered Tests: Active Orders 24 hr Category Date Time Status CHEST 1 VIEW (PORTABLE) Stat Exams 10/06/21 18:56 Completed CBC W DIFF Stat Lab 10/06/21 19:16 Completed CMP Stat Lab 10/06/21 19:16 Completed CULTURE,URINE Stat Lab 10/06/21 20:13 Received Lactic Acid Stat Lab 10/06/21 19:14 Completed MAGNESIUM Stat Lab 10/06/21 19:16 Completed Manual Differential NC Stat Lab 10/06/21 19:16 Completed NT PRO BNP Stat Lab 10/06/21 19:16 Completed TROPONIN Q3H Lab 10/06/21 19:16 Completed TROPONIN Q3H Lab 10/06/21 22:00 Completed TROPONIN Q3H Lab 10/07/21 01:00 Ordered TROPONIN Q3H Lab 10/07/21 04:00 Ordered TROPONIN Q3H Lab 10/07/21 07:00 Ordered UA W/RFX UR CULTURE Stat Lab 10/06/21 20:13 Completed Transfer Order Routine Transfer 10/06/21 Ordered Medication Summary Generic Name Dose Route Start Last Admin Trade Name Freq PRN Reason Stop Dose Admin Potassium Chloride/Sodium Chloride 1,000 mls @ 125 mls/hr 10/06/21 20:30 10/06/21 20:20 Sodium Chloride 0.9% W/ 20 Meq Kcl/Liter IV 11/05/21 20:29 125 mls/hr .Q8H SMITHA Administration Ceftriaxone Sodium/Dextrose 1 g in 50 mls @ 100 mls/hr 10/06/21 22:32 10/06/21 22:36 Rocephin 1 Gm-D5w 50 Ml Bag IV 10/06/21 23:01 100 mls/hr STAT STA 100 mls/hr Administration Discontinued Medications Generic Name Dose Route Start Last Admin Trade Name Freq PRN Reason Stop Dose Admin Acetaminophen 1,000 mg 10/06/21 21:56 10/06/21 21:58 Acetaminophen 500 Mg Tablet PO 10/06/21 21:57 1,000 mg STAT STA Administration Acetaminophen Confirm 10/06/21 21:57 Acetaminophen 500 Mg Tablet Administered 10/06/21 21:58 Dose 1,000 mg .ROUTE .STK-MED ONE Dexamethasone Sodium Phosphate 6 mg 10/06/21 22:26 10/06/21 22:36 Dexamethasone Sod Phosphate 10 Mg/Ml IV 10/06/21 22:27 6 mg STAT ONE Administration Dexamethasone Sodium Phosphate Confirm 10/06/21 22:35 Dexamethasone Sod Phosphate 10 Mg/Ml Administered 10/06/21 22:36 Dose 10 mg .ROUTE .STK-MED ONE Sodium Chloride Confirm 10/06/21 20:16 Sodium Chloride 0.9% 1000 Ml Administered 10/06/21 20:17 Dose 1,000 mls @ ud .ROUTE .STK-MED ONE Ceftriaxone Sodium/Dextrose Confirm 10/06/21 22:35 Rocephin 1 Gm-D5w 50 Ml Bag Administered 10/06/21 22:36 Dose 1 g in 50 mls @ ud IV .STK-MED ONE Lab/Rad Data: Laboratory Result Diagrams 10/06/21 19:16 10/06/21 19:16 Laboratory Results 10/06/21 10/06/21 10/06/21 Range/Units 22:00 21:06 20:13 WBC (4.0-10.5) K/mm3 RBC (4.1-5.4) M/mm3 Hgb (12.0-16.0) gm/dl Hct (35-47) % MCV (78-100) fl MCH (26-32) pg MCHC (32-36) g/dl RDW (11.5-14.0) % Plt Count (150-450) K/mm3 MPV (7.5-11.0) fl Sodium (137-145) mmol/L Potassium (3.5-5.1) mmol/L Chloride (98-107) mmol/L Carbon Dioxide (22-30) mmol/L Anion Gap (5-15) MEQ/L BUN (7-17) mg/dL Creatinine (0.52-1.04) mg/dL Estimated GFR ML/MIN Glucose (74-106) mg/dL Lactic Acid (0.4-2.0) Calcium (8.4-10.2) mg/dL Magnesium (1.6-2.3) mg/dL Total Bilirubin (0.2-1.3) mg/dL AST (14-36) U/L ALT (0-35) U/L Alkaline Phosphatase (38-126) U/L Troponin I 0.057 H* (0.000-0.034) ng/mL NT-Pro-B Natriuret Pep (0-1800) pg/mL Serum Total Protein (6.3-8.2) g/dL Albumin (3.5-5.0) g/dL Urine Color YELLOW (YELLOW) Urine Appearance SLIGHTLY CLOUDY (CLEAR) Urine pH 6.0 (5-6) Ur Specific [place] 1.011 (1.005-1.025) Urine Protein 30 (Negative) Urine Ketones NEGATIVE (NEGATIVE) Urine Blood NEGATIVE (0-5) Jose/ul Urine Nitrite NEGATIVE (NEGATIVE) Urine Bilirubin NEGATIVE (NEGATIVE) Urine Urobilinogen NEGATIVE (0-1) mg/dL Ur Leukocyte Esterase SMALL (NEGATIVE) Urine WBC (Auto) 16-25 (0-5) /HPF Urine RBC (Auto) 3-5 (0-2) /HPF U Epithel Cells (Auto) RARE (FEW) /HPF Urine Bacteria (Auto) MODERATE (NEGATIVE) /HPF Urine Mucus (Auto) SLIGHT (NEGATIVE) /HPF Urine Culture Reflexed YES (NO) Urine Glucose NEGATIVE (NEGATIVE) mg/dL Influenza Type A Ag NEGATIVE (NEGATIVE) Influenza Type B Ag NEGATIVE (NEGATIVE) RSV (PCR) NEGATIVE (Negative) SARS-CoV-2 (PCR) POSITIVE A (NEGATIVE) 10/06/21 10/06/21 10/06/21 Range/Units 19:16 19:16 19:16 WBC 3.2 L (4.0-10.5) K/mm3 RBC 3.23 L (4.1-5.4) M/mm3 Hgb 10.5 L (12.0-16.0) gm/dl Hct 30.9 L (35-47) % MCV 95.7 (78-100) fl MCH 32.5 H (26-32) pg MCHC 34.0 (32-36) g/dl RDW 17.8 H (11.5-14.0) % Plt Count 221 (150-450) K/mm3 MPV 9.3 (7.5-11.0) fl Sodium 133 L (137-145) mmol/L Potassium 3.4 L (3.5-5.1) mmol/L Chloride 91 L (98-107) mmol/L Carbon Dioxide 28 (22-30) mmol/L Anion Gap 16.7 H (5-15) MEQ/L BUN 58 H (7-17) mg/dL Creatinine 2.43 H (0.52-1.04) mg/dL Estimated GFR 20.1 ML/MIN Glucose 95 (74-106) mg/dL Lactic Acid (0.4-2.0) Calcium 8.6 (8.4-10.2) mg/dL Magnesium 2.2 (1.6-2.3) mg/dL Total Bilirubin 0.60 (0.2-1.3) mg/dL AST 42 H (14-36) U/L ALT 18 (0-35) U/L Alkaline Phosphatase 115 (38-126) U/L Troponin I 0.062 H* (0.000-0.034) ng/mL NT-Pro-B Natriuret Pep 27466 H (0-1800) pg/mL Serum Total Protein 6.2 L (6.3-8.2) g/dL Albumin 4.0 (3.5-5.0) g/dL Urine Color (YELLOW) Urine Appearance (CLEAR) Urine pH (5-6) Ur Specific [place] (1.005-1.025) Urine Protein (Negative) Urine Ketones (NEGATIVE) Urine Blood (0-5) Jose/ul Urine Nitrite (NEGATIVE) Urine Bilirubin (NEGATIVE) Urine Urobilinogen (0-1) mg/dL Ur Leukocyte Esterase (NEGATIVE) Urine WBC (Auto) (0-5) /HPF Urine RBC (Auto) (0-2) /HPF U Epithel Cells (Auto) (FEW) /HPF Urine Bacteria (Auto) (NEGATIVE) /HPF Urine Mucus (Auto) (NEGATIVE) /HPF Urine Culture Reflexed (NO) Urine Glucose (NEGATIVE) mg/dL Influenza Type A Ag (NEGATIVE) Influenza Type B Ag (NEGATIVE) RSV (PCR) (Negative) SARS-CoV-2 (PCR) (NEGATIVE) 10/06/21 Range/Units 19:14 WBC (4.0-10.5) K/mm3 RBC (4.1-5.4) M/mm3 Hgb (12.0-16.0) gm/dl Hct (35-47) % MCV (78-100) fl MCH (26-32) pg MCHC (32-36) g/dl RDW (11.5-14.0) % Plt Count (150-450) K/mm3 MPV (7.5-11.0) fl Sodium (137-145) mmol/L Potassium (3.5-5.1) mmol/L Chloride (98-107) mmol/L Carbon Dioxide (22-30) mmol/L Anion Gap (5-15) MEQ/L BUN (7-17) mg/dL Creatinine (0.52-1.04) mg/dL Estimated GFR ML/MIN Glucose (74-106) mg/dL Lactic Acid 1.0 (0.4-2.0) Calcium (8.4-10.2) mg/dL Magnesium (1.6-2.3) mg/dL Total Bilirubin (0.2-1.3) mg/dL AST (14-36) U/L ALT (0-35) U/L Alkaline Phosphatase (38-126) U/L Troponin I (0.000-0.034) ng/mL NT-Pro-B Natriuret Pep (0-1800) pg/mL Serum Total Protein (6.3-8.2) g/dL Albumin (3.5-5.0) g/dL Urine Color (YELLOW) Urine Appearance (CLEAR) Urine pH (5-6) Ur Specific [place] (1.005-1.025) Urine Protein (Negative) Urine Ketones (NEGATIVE) Urine Blood (0-5) Jose/ul Urine Nitrite (NEGATIVE) Urine Bilirubin (NEGATIVE) Urine Urobilinogen (0-1) mg/dL Ur Leukocyte Esterase (NEGATIVE) Urine WBC (Auto) (0-5) /HPF Urine RBC (Auto) (0-2) /HPF U Epithel Cells (Auto) (FEW) /HPF Urine Bacteria (Auto) (NEGATIVE) /HPF Urine Mucus (Auto) (NEGATIVE) /HPF Urine Culture Reflexed (NO) Urine Glucose (NEGATIVE) mg/dL Influenza Type A Ag (NEGATIVE) Influenza Type B Ag (NEGATIVE) RSV (PCR) (Negative) SARS-CoV-2 (PCR) (NEGATIVE) - Progress Progress: unchanged Progress Note: 10/06/21 22:30 86 years old is evaluated for generalized weakness fatigue and tiredness. She is started on fluids, work-up showed white count of 3.2 and acute on chronic kidney failure and UTI. Given a dose of antibiotics. Chest x-ray negative for any acute findings. Patient is initially admitted to Dr. Díaz but her COVID- 19 is positive, discussed with Dr. Sullivan and patient is admitted to COVID floor. We will give a dose of Decadron but will hold off on remdesivir as patient does not seem to have any respiratory symptoms and maintaining oxygen saturation on room air around 96%. Discussed with Dr.: Felicia, Other (Dr. Wilkins) Will see patient in: hospital (observation) Counseled pt/family regarding: lab results, diagnosis, rad results - Departure Departure Disposition: Observation Clinical Impression: Acute UTI, Generalized weakness, COVID-19 virus detected Acute on chronic kidney failure Qualifiers: Acute renal failure type: unspecified Chronic kidney disease stage: unspecified stage Qualified Code(s): N17.9 - Acute kidney failure, unspecified Condition: Stable Critical Care Time: No Referrals: ALYSSA BARGER MD [Primary Care Provider] - Follow up/PCP as directed
[2021-10-06 19:39] LABS: ANION GAP 16.7 MEQ/L (5-15); BILIRUBIN,TOTAL 0.6 mg/dL (0.2-1.3); Calcium 8.6 mg/dL (8.4-10.2); Creatinine 1 2.43 mg/dL (0.52-1.04); EST GLOMERULAR FILTRATION RATE 20.1 ML/MIN; Potassium 3.4 mmol/L (3.5-5.1); Total Protein 6.2 g/dL (6.3-8.2)
[2021-10-06 19:40] LABS: MAGNESIUM 2.2 mg/dL (1.6-2.3)
--- NOTE | 2021-10-06 19:43 | XRAY ---
Indication: General weakness 3 days. Comparison: April 22, 2021. Portable chest unchanged again demonstrating chronic left hemidiaphragm elevation with adjacent atelectasis/scarring, cardiomegaly with CABG/cardiac valve replacement surgery, osteopenia, and mild bony degenerative changes. No new/acute findings.
[2021-10-06] MEDS ORDERED: Sodium Chloride 0.9% 1000 ML 0 ML ONE (20:16)
[2021-10-06] MEDS: Sodium Chloride 0.9% W/ 20 mEq KCl/LITER 1,000 ML IV SCH (20:20)
[2021-10-06 20:42] LABS: Appearance SLIGHTLY CLOUDY (CLEAR); Bacteria MODERATE /HPF (NEGATIVE); Bilirubin NEGATIVE (NEGATIVE); Blood NEGATIVE Ery/ul (0-5); Epithelial Cells RARE /HPF (FEW); Glucose NEGATIVE (NEGATIVE); Ketones NEGATIVE (NEGATIVE); Leukocyte Esterase SMALL (NEGATIVE); Mucus SLIGHT /HPF (NEGATIVE); Nitrite NEGATIVE (NEGATIVE); Protein,Urine Dip 30 (Negative); Specific Gravity 1.011 (1.005-1.025); Urobilinogen NEGATIVE mg/dL (0-1)
[2021-10-06] MEDS ORDERED: TYLENOL EXTRA STRENGTH 500 MG PO STA (21:56)
[2021-10-06] MEDS ORDERED: TYLENOL EXTRA STRENGTH 500 MG ONE (21:57)
[2021-10-06 22:16] LABS: INFLUENZA A NEGATIVE (NEGATIVE); INFLUENZA B NEGATIVE (NEGATIVE); RESPIRATORY SYNCTIAL VIRUS NEGATIVE (Negative)
[2021-10-06 22:22] LABS: SARS-CoV-2 Xpert Express POSITIVE (NEGATIVE)
[2021-10-06] MEDS ORDERED: DECADRON 10MG INJ. IV ONE (22:26)
[2021-10-06] MEDS ORDERED: ROCEPHIN 1 Gm-D5w 50 ml Bag** 1 G/50 ML IVPB IV STA (22:32)
[2021-10-06] MEDS ORDERED: DECADRON 10MG INJ. ONE (22:35)
[2021-10-06] MEDS ORDERED: ROCEPHIN 1 Gm-D5w 50 ml Bag** 1 G/50 ML IVPB IV ONE (22:35)
[2021-10-06] MEDS ORDERED: MORPHINE SULFATE 2 MG INJ IV ONE (22:59)
[2021-10-06] MEDS ORDERED: Zofran 4 MG/2 ML VIAL IV ONE (23:00)
[2021-10-06] MEDS ORDERED: MORPHINE SULFATE 2 MG INJ ONE (23:01)
[2021-10-06] MEDS ORDERED: Zofran 4 MG/2 ML VIAL ONE (23:01)
[2021-10-06] MEDS ORDERED: DUONEB 0.5-3 MG/3 ml Neb IH PRN (23:16)
[2021-10-06] MEDS ORDERED: TYLENOL 325 MG PO PRN (23:16)
[2021-10-06] MEDS ORDERED: HUMALOG SQ PRN (23:16)
[2021-10-07 00:36] LABS: Lymphocytes 18 % (24-44); Monocyte 14 % (0.0-12.0); Neutrophils 68 % (36.0-66.0); Platelet Estimate NORMAL (NORMAL); Total Cells Counted 100
[2021-10-07 00:37] LABS: ANISOCYTOSIS 1+
[2021-10-07] MEDS: Sodium Chloride 0.9% W/ 20 mEq KCl/LITER 1,000 ML IV SCH ×2 (04:18→11:38)
[2021-10-07 04:57] LABS: Hematocrit 27.6 % (35-47); Hemoglobin 9.1 gm/dl (12.0-16.0); Mean Cell Volume 97.2 fl (78-100); Mean Platelet Volume 10.3 fl (7.5-11.0); Platelet Count 186 K/mm3 (150-450); Red Blood Count 2.84 M/mm3 (4.1-5.4); Red Cell Distribution Width 17.7 % (11.5-14.0); White Blood Count 3.4 K/mm3 (4.0-10.5)
[2021-10-07 05:14] LABS: ALBUMIN 3.7 g/dL (3.5-5.0); ANION GAP 14.2 MEQ/L (5-15); BILIRUBIN,TOTAL 0.5 mg/dL (0.2-1.3); Creatinine 1 2.49 mg/dL (0.52-1.04); EST GLOMERULAR FILTRATION RATE 19.5 ML/MIN; Potassium 3.7 mmol/L (3.5-5.1); Total Protein 6.1 g/dL (6.3-8.2)
[2021-10-07] MEDS ORDERED: ENOXAPARIN SODIUM SQ SCH (10:00)
[2021-10-07] MEDS ORDERED: Ativan 0.5 MG PO PRN (11:21)
[2021-10-07] MEDS: Januvia 50 MG PO SCH (11:22)
[2021-10-07] MEDS: Apresoline 25 MG TABLET PO SCH ×3 (11:22→22:13)
[2021-10-07] MEDS: ECOTRIN 81 MG PO SCH (11:23)
[2021-10-07] MEDS: ZYLOPRIM 100 MG PO SCH (11:23)
[2021-10-07] MEDS: Klor Con 10 MEQ PO SCH ×2 (11:23→22:13)
[2021-10-07] MEDS: Lasix 40 MG PO SCH ×2 (11:23→16:03)
[2021-10-07] MEDS: Lopressor 50 MG PO SCH ×2 (11:23→22:15)
[2021-10-07] MEDS: ENOXAPARIN SODIUM SQ SCH (11:24)
[2021-10-07] MEDS: DECADRON 10MG INJ. IV SCH (11:24)
[2021-10-07] MEDS: PROTONIX 40 MG IV IV SCH (11:24)
[2021-10-07 13:14] LABS: BAND 6 % (0.0-2.0); Lymphocytes 9 % (24-44); Monocyte 2 % (0.0-12.0); Neutrophils 83 % (36.0-66.0); Total Cells Counted 100
[2021-10-07 13:15] LABS: Hypochromia 1+; Platelet Estimate NORMAL (NORMAL)
[2021-10-07] MEDS ORDERED: NON-FORMULARY ITEM (Hydralazine Hcl [Hydralazine Hcl] 50 MG Tablet) PO SCH (15:00)
[2021-10-07] MEDS ORDERED: ROCEPHIN 1 Gm-D5w 50 ml Bag** 1 G/50 ML IVPB IV SCH (22:00)
[2021-10-08] MEDS ORDERED: Zaroxolyn 2.5 MG PO SCH (10:00)
[2021-10-08] MEDS ORDERED: SITAGLIPTIN PHOSPHATE 100 MG PO SCH (10:00)
[2021-10-08] MEDS: DECADRON 10MG INJ. IV SCH (10:27)
[2021-10-08] MEDS: ENOXAPARIN SODIUM SQ SCH (10:27)
[2021-10-08] MEDS: ECOTRIN 81 MG PO SCH (10:27)
[2021-10-08] MEDS: Lasix 40 MG PO SCH (10:27)
[2021-10-08] MEDS: Klor Con 10 MEQ PO SCH (10:27)
[2021-10-08] MEDS: Lopressor 50 MG PO SCH (10:27)
[2021-10-08] MEDS: Apresoline 25 MG TABLET PO SCH (10:28)
[2021-10-08] MEDS: Januvia 50 MG PO SCH (10:28)
[2021-10-08] MEDS: PROTONIX 40 MG IV IV SCH (10:28)
[2021-10-08] MEDS: ZYLOPRIM 100 MG PO SCH (10:29)
[2021-10-08 10:37] VITALS: PULSE 53
[2021-10-08 12:22] VITALS: BP 138/67; O2SAT 100
--- NOTE | 2021-10-08 13:55 | HP ---
CHIEF COMPLAINT: "I hurt all over, do not feel well, increasing pain and weakness and maybe confusion for three days". HISTORY OF PRESENT ILLNESS: She is 86 years old and showed up in the emergency room in the evening. I believe the family, of course, brought her in. She is not particularly a good historian. 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 Always pleasant and definitely having problems remembering things. TRAVEL RISK: None. CORONAVIRUS SCREENING: No COVID vaccines. MEDICATIONS: Lopressor 50 q.d., Januvia 100 q.d., hydralazine 50 t.i.d., sodium bicarb 650 q.d., aspirin 81 q.d. and Bactroban ointment any open areas twice a day. ALLERGIES: NKDA. PAST MEDICAL/SURGICAL HISTORY: She apparently has some Alzheimer's type dementia. She lives in a house I assume with close follow up from her three children who live in [place]. The patient has had hypertension, myocardial infarction in the distant past. Diabetes mellitus type II well controlled. Arthritis of the knees. She has been a for over four years. 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 It was kind of an interesting job in its time. Other history: The patient did have a stent December 2012. She had some type of open heart surgery November 2018. I assume they mean a coronary artery bypass graft. REVIEW OF SYSTEMS: CONSTITUTIONAL: Just the weakness, achiness. HEENT: No problems hearing or seeing. Can taste food. CHEST: She denies any coughing. Denies shortness of breath. ABDOMEN: No nausea or vomiting. Not eating well. EXTREMITIES: Aching, hurting all over. SOCIAL HISTORY: No smoking history. PHYSICAL EXAMINATION: The patient is alert, very orientated. She knows she is in [facility] and she is glad she is in [place] instead of [place]. She sometimes makes silly statements like "I am going to call the police if you do not send me home" but then she retracts it, knowing it is nonsense. VITAL SIGNS: Temperature 97F, pulse 70, respirations 20, blood pressure 168/70. O2 saturation on room air is 97%. GENERAL APPEARANCE: She looks like a strong, healthy, 86-year-old lady. HEENT: Normal. NECK: Supple without adenopathy. CHEST: Few crackles bilateral. CVS: Regular rate. No murmurs or gallops. ABDOMEN: Soft. No masses or organomegaly. LAB DATA AND TESTS: White count decreased at 3.2 from COVID. Hemoglobin 10.5, PLT count 221,000. Lactic acid was normal. IMPRESSION: The patient has increased weakness, myalgia due to COVID. I am not for sure how well her blood sugar is doing at home because it was somewhat high here. PLAN: The patient will be observed at least through today and probably will be able to send her home. All of the cardiac enzymes were normal which initially they were minimally elevated x1 and then came down to normal. She has no chest pain. EKG shows no acute infarctions. Chest x-ray showed some cardiomegaly with coronary artery bypass/cardiac valve replacement surgery, osteopenia, multiple degenerative changes. EKG showed some T-wave inversion in II and III. However troponins were not elevated and no old EKG's. Prolonged QT syndrome. She definitely has history of coronary artery disease which seems to be stable. She has some renal insufficiency mild why she probably takes the baking soda. However due to the COVID, I am going to hold off on that a day or two. PROGNOSIS: Overall is quite good.
== END 2021-10-08 12:59 | disposition home or self-care (01) ==
LOC: ED 18:05 → MED SURG 23:15
PROVIDERS: ADMIT Family Medicine; ATTEND Family Medicine
DX: U07.1 COVID-19 (principal); N39.0 Urinary tract infection, site not specified; N17.9 Acute kidney failure, unspecified; I10 Essential (primary) hypertension; E11.9 Type 2 diabetes mellitus without complications; I25.10 Atherosclerotic heart disease of native coronary artery without angina pectoris; I25.2 Old myocardial infarction; Z20.828 Contact with and (suspected) exposure to other viral communicable diseases; Z79.899 Other long term (current) drug therapy
CPT/HCPCS: 0241U; 36415; 71045; 80053; 81001; 82947; 83605; 83735; 83880; 84484; 85025; 85379; 87077; 87086; 87186; 93005; 93268; 96374; 96375; 99285; G0378; J0696; J1100; J1650; J1817; J2270; J2405; A9270-GY

== ENCOUNTER 2021-10-10 14:47 | Emergency (ER) | payer MEDICARE ==
[2021-10-10] MEDS ORDERED: Sodium Chloride 0.9% 500 ML 500 ML IV ONE ×2 (15:08→15:10)
--- NOTE | 2021-10-10 15:27 | XRAY ---
Indication: Weakness. Positive Covid 19. Comparison: October 06, 2021. Portable chest demonstrates new mild diffuse bilateral patchy airspace disease. Stable chronic left hemidiaphragm elevation with adjacent atelectasis/scarring and cardiomegaly with CABG/cardiac valve replacement surgery.
[2021-10-10 16:09] LABS: Hematocrit 26.5 % (35-47); Hemoglobin 8.9 gm/dl (12.0-16.0); Mean Cell Volume 95.7 fl (78-100); Mean Corpuscular Hemoglobin 32.1 pg (26-32); Mean Corpuscular Hgb Concent. 33.6 g/dl (32-36); Mean Platelet Volume 10.6 fl (7.5-11.0); Platelet Count 169 K/mm3 (150-450); Red Blood Count 2.77 M/mm3 (4.1-5.4); Red Cell Distribution Width 17.6 % (11.5-14.0); White Blood Count 3.4 K/mm3 (4.0-10.5)
--- NOTE | 2021-10-10 16:16 | ERPHSYRPT ---
- History of Present Illness Time Seen by Provider: 10/10/21 14:51 Source: patient Exam Limitations: no limitations Patient Subjective Stated Complaint: Pt states "I am sorry I am back, but I just cannot take care of myself right now." Triage Nursing Assessment: Pt presented alert and oriented X3, skin pwd Pt ambulates with an upright steady gait, able to speak in clear full sentences pt moaning and grunting with each move, pt able to stand with assist of one and cane. Physician History: 86 years old female with multiple medical problems who was recently admitted for generalized weakness fatigue with a positive COVID returns to ER with generalized weakness and inability to take care of self as patient lives alone. Patient states "I cannot take care of myself and need help". Denies any difficulty breathing, chest pain palpitations or abdominal pain nausea vomiting. Does have decreased oral intake than usual. Denies any urinary symptoms. Patient is able to ambulate with cane. Reports she aches all over but subjective fever and chills. Patient is maintaining oxygen saturation are 97% on room air with stable vitals. Not in any distress. Allergies/Adverse Reactions: No Known Drug Allergies Allergy (Verified 04/22/21 17:35) Home Medications: Metoprolol Tartrate 50 mg [Lopressor 50 MG] 50 mg PO BID 02/12/19 [History] Sitagliptin Phosphate [Januvia] 100 mg PO DAILY 02/12/19 [History] Hydralazine HCl 50 mg PO TID 10/08/19 [History] Sodium Bicarbonate 650 mg PO DAILY 03/11/21 [History] Aspirin EC 81 mg [Ecotrin 81 mg] 81 mg PO DAILY 04/22/21 [History] Potassium Chloride 10 Meq Tab* [Klor Con 10 MEQ] 20 meq PO BID 10/07/21 [History] Hx Tetanus, Diphtheria Vaccination/Date Given: Yes Hx Influenza Vaccination/Date Given: Yes Hx Pneumococcal Vaccination/Date Given: No Immunizations Up to Date: Yes Travel Risk - International Travel Have you traveled outside of the country in past 3 weeks: No - Coronavirus Screening Are you exhibiting any of the following symptoms?: No Close contact with a COVID-19 positive Pt in past 14-21 Days: No - Vaccine Status Have you recieved a Covid-19 vaccination: No - Review of Systems Constitutional: Fever, Chills, Fatigue, Weakness Eyes: No Symptoms Ears, Nose, & Throat: No Symptoms Respiratory: Cough Cardiac: No Symptoms Abdominal/Gastrointestinal: No Symptoms Genitourinary Symptoms: No Symptoms Musculoskeletal: Myalgias Skin: No Symptoms Neurological: No Symptoms Endocrine: No Symptoms Hematologic/Lymphatic: No Symptoms Immunological/Allergic: No Symptoms - Past Medical History Pertinent Past Medical History: Yes Neurological History: No Pertinent History ENT History: No Pertinent History Cardiac History: Congestive Heart Failure, Hypertension Respiratory History: No Pertinent History Endocrine Medical History: Diabetes Type II Musculoskeletal History: Osteoarthritis GI Medical History: Other History: Renal Disease Psycho-Social History: No Pertinent History Female Reproductive Disorders: No Pertinent History Other Medical History: CARDIAC STENT 01/02; Enlarged liver, open heart surgery 12/08/18. Recalled history. Patient is poor historian - Past Surgical History Past Surgical History: Yes Neuro Surgical History: No Pertinent History Cardiac: Angioplasty, CABG, Cardiac Catheterization, Cardiac Stent Respiratory: No Pertinent History Gastrointestinal: No Pertinent History Genitourinary: No Pertinent History Musculoskeletal: Other Female Surgical History: Hysterectomy Other Surgical History: cardiac stent x three December. CABG x 4 vessels in , wound care for bilateral legs within the last year. recalled history. Patient is a poor historian - Social History Smoking Status: Never smoker Exposure to second hand smoke: No Drug Use: none Patient Lives Alone: Yes - Female History Hx Now: No - Nursing Vital Signs Nursing Vital Signs: Initial Vital Signs Temperature 97.9 F 10/10/21 14:56 Pulse Rate 83 10/10/21 14:56 Respiratory Rate 24 10/10/21 14:56 Blood Pressure 155/70 10/10/21 14:56 O2 Sat by Pulse Oximetry 95 10/10/21 14:56 Pain Scale Pain Intensity 0 - Physical Exam General Appearance: no apparent distress, alert, anxiety Eye Exam: PERRL/EOMI, eyes nml inspection Ears, Nose, Throat Exam: TMs normal, moist mucous membranes Neck Exam: normal inspection, non-tender, supple, full range of motion Respiratory Exam: normal breath sounds, rhonchi Cardiovascular Exam: regular rate/rhythm, normal heart sounds Gastrointestinal/Abdomen Exam: soft, normal bowel sounds Back Exam: normal inspection, normal range of motion Extremity Exam: normal inspection, normal range of motion Neurologic Exam: alert, oriented x 3, cooperative, casting room operator II-XII nml as tested Skin Exam: normal color SpO2 Interpretation: normal SpO2: 99 O2 Delivery: Room Air - Course EKG Interpreted by Me: RATE (76), Sinus Rhythm, NORMAL AXIS, prolonged QT interval, Non-specific ST Changes, Other (T wave inversion diffusely) Ordered Tests: Active Orders 24 hr Category Date Time Status CHEST 1 VIEW (PORTABLE) Stat Exams 10/10/21 15:05 Completed CBC W DIFF Stat Lab 10/10/21 16:00 Completed CMP Stat Lab 10/10/21 16:00 Completed CULTURE,URINE Stat Lab 10/10/21 15:06 Ordered MAGNESIUM Stat Lab 10/10/21 16:00 Completed Manual Differential NC Stat Lab 10/10/21 16:00 Completed UA W/RFX UR CULTURE Stat Lab 10/10/21 15:05 Ordered Medication Summary Discontinued Medications Generic Name Dose Route Start Last Admin Trade Name Freq PRN Reason Stop Dose Admin Sodium Chloride 500 mls @ 500 mls/hr 10/10/21 15:08 10/10/21 16:14 Sodium Chloride 0.9% 500 Ml IV 10/10/21 16:07 Infused .Q1H ONE Infusion Sodium Chloride Confirm 10/10/21 15:10 Sodium Chloride 0.9% 500 Ml Administered 10/10/21 15:11 Dose 500 mls @ ud IV .STK-MED ONE Potassium Bicarbonate 50 meq 10/10/21 16:47 10/10/21 16:50 Potassium Bicarbonate 25 Meq Tab PO 10/10/21 16:48 50 meq STAT ONE Administration Potassium Bicarbonate Confirm 10/10/21 16:49 Potassium Bicarbonate 25 Meq Tab Administered 10/10/21 16:50 Dose 50 meq .ROUTE .STK-MED ONE Lab/Rad Data: Laboratory Result Diagrams 10/10/21 16:00 10/10/21 16:00 Laboratory Results 10/10/21 10/10/21 Range/Units 16:00 16:00 WBC 3.4 L (4.0-10.5) K/mm3 RBC 2.77 L (4.1-5.4) M/mm3 Hgb 8.9 L (12.0-16.0) gm/dl Hct 26.5 L (35-47) % MCV 95.7 (78-100) fl MCH 32.1 H (26-32) pg MCHC 33.6 (32-36) g/dl RDW 17.6 H (11.5-14.0) % Plt Count 169 (150-450) K/mm3 MPV 10.6 (7.5-11.0) fl Segmented Neutrophils 79 H (36.0-66.0) % Lymphocytes (Manual) 15 L (24-44) % Monocytes (Manual) 6 (0.0-12.0) % Toxic Granulation 1+ Platelet Estimate NORMAL (NORMAL) RBC Morphology ABNORMAL Poikilocytosis 1+ Anisocytosis 1+ Sodium 134 L (137-145) mmol/L Potassium 2.9 L* (3.5-5.1) mmol/L Chloride 101 (98-107) mmol/L Carbon Dioxide 25 (22-30) mmol/L Anion Gap 11.4 (5-15) MEQ/L BUN 46 H (7-17) mg/dL Creatinine 1.72 H (0.52-1.04) mg/dL Estimated GFR 29.9 ML/MIN Glucose 126 H (74-106) mg/dL Calcium 7.9 L (8.4-10.2) mg/dL Magnesium 2.0 (1.6-2.3) mg/dL Total Bilirubin 0.50 (0.2-1.3) mg/dL AST 65 H (14-36) U/L ALT 29 (0-35) U/L Alkaline Phosphatase 92 (38-126) U/L Serum Total Protein 5.2 L (6.3-8.2) g/dL Albumin 3.2 L (3.5-5.0) g/dL - Progress Progress: improved Progress Note: 10/10/21 18:11 She has given us fluid bolus, maintaining oxygen saturation at room air around 97%. Not in any distress at all. EKG did not show any acute ischemic changes and negative troponins. Normal lactate. CBC consistent with COVID. Chemistry profile showed hypokalemia and is given oral replacement and will continue for few days to go home as oral potassium therapy. Chest x-ray showed finding consistent with COVID, since patient is maintaining oxygen saturation, do not think she needs to be admitted and her symptoms are part of COVID syndrome. Discussed with daughter and she is ready to take her home and will take care of her. Stable for discharge. Counseled pt/family regarding: lab results, diagnosis, need for follow-up, rad results - Departure Departure Disposition: Home Clinical Impression: COVID-19, Viral syndrome, Hypokalemia, Generalized weakness Condition: Stable Critical Care Time: No Referrals: ALYSSA BARGER MD [Primary Care Provider] - Follow up/PCP as directed (1-2 days for reevaluation) Instructions: Hypokalemia (DC), Viral Syndrome (DC) Additional Instructions: Keep yourself well-hydrated. Take Tylenol as needed for aches and pains. Follow-up with primary care for reevaluation. Return to ER if having difficulty breathing, worsening of weakness, decreased oral intake, intractable vomiting/diarrhea etc. Prescriptions: Potassium Chloride 20 meq PO DAILY 7 Days #7 tab
[2021-10-10 16:27] LABS: ALBUMIN 3.2 g/dL (3.5-5.0); ANION GAP 11.4 MEQ/L (5-15); BILIRUBIN,TOTAL 0.5 mg/dL (0.2-1.3); Calcium 7.9 mg/dL (8.4-10.2); Creatinine 1 1.72 mg/dL (0.52-1.04); EST GLOMERULAR FILTRATION RATE 29.9 ML/MIN; Total Protein 5.2 g/dL (6.3-8.2)
[2021-10-10 16:31] LABS: Potassium 2.9 mmol/L (3.5-5.1)
[2021-10-10] MEDS ORDERED: K-LYTE 25 MEQ PO ONE (16:47)
[2021-10-10] MEDS ORDERED: K-LYTE 25 MEQ ONE (16:49)
[2021-10-10 17:13] LABS: Lymphocytes 15 % (24-44); Monocyte 6 % (0.0-12.0); Neutrophils 79 % (36.0-66.0); Total Cells Counted 100
[2021-10-10 17:14] LABS: ANISOCYTOSIS 1+; Platelet Estimate NORMAL (NORMAL); Poikilocytosis 1+; Toxic Granulation 1+
[2021-10-10 18:17] VITALS: O2SAT 99
[2021-10-10 18:19] VITALS: BP 151/76; PULSE 70
== END 2021-10-10 18:51 | disposition home or self-care (01) ==
LOC: ED 14:47
DX: U07.1 COVID-19 (principal); E87.6 Hypokalemia; R53.1 Weakness; I11.0 Hypertensive heart disease with heart failure; I50.9 Heart failure, unspecified; E11.9 Type 2 diabetes mellitus without complications; Z79.84 Long term (current) use of oral hypoglycemic drugs; Z60.2 Problems related to living alone
CPT/HCPCS: 36000; 36415; 71045; 80053; 83735; 85025; 99284; A9270-GY

== ENCOUNTER 2021-10-13 14:38 | Emergency (ER) | payer MEDICARE ==
[2021-10-13] MEDS ORDERED: Sodium Chloride 0.9% 1000 ML 1,000 ML IV SCH (15:00)
--- NOTE | 2021-10-13 15:08 | ERPHSYRPT ---
- History of Present Illness Time Seen by Provider: 10/13/21 14:45 Source: patient Exam Limitations: no limitations Patient Subjective Stated Complaint: Pt states "I am back. I am sick." Triage Nursing Assessment: PT presented alert and oriented X 3, skin wpd pt ambulates with an upright slow gait. Pt moaning and stating she is sick and does not feel well. Pt has electrodes on her legs from visit a couple of days ago. Pt in no apparent respiratory distress. Physician History: This is an 86-year-old white female patient of Dr. Barger who was diagnosed with COVID-19 infection on 10/06/2021 and spent a few days in the hospital and then was discharged to home. She was seen here again in the emergency department on 10/10/2021 with similar COVID-19 infection symptoms and found to have a low potassium level. She was treated here in the emergency department on that date and also was given outpatient potassium supplementation. Patient has multiple chronic medical issues including chronic renal failure, chronically elevated troponin levels, congestive heart failure, cardiac arrhythmias, coronary artery disease (cardiac stents and CABG) hypertension and type 2 diabetes. Patient states that she just feels sick all over. She does not specifically have chest pain or shortness of breath. She does state that she has decreased appetite as well. Patient lives alone but family members are all around her close by. Patient has expressed in the past no desire to go into a detention even for short period of time. Timing/Duration: worse Severity: mild (To moderate) Associated Symptoms: loss of appetite, weakness Allergies/Adverse Reactions: No Known Drug Allergies Allergy (Verified 04/22/21 17:35) Home Medications: Metoprolol Tartrate 50 mg [Lopressor 50 MG] 50 mg PO BID 02/12/19 [History] Sitagliptin Phosphate [Januvia] 100 mg PO DAILY 02/12/19 [History] Hydralazine HCl 50 mg PO TID 10/08/19 [History] Sodium Bicarbonate 650 mg PO DAILY 03/11/21 [History] Aspirin EC 81 mg [Ecotrin 81 mg] 81 mg PO DAILY 04/22/21 [History] Potassium Chloride 10 Meq Tab* [Klor Con 10 MEQ] 20 meq PO BID 10/07/21 [History] Hx Tetanus, Diphtheria Vaccination/Date Given: Yes Hx Influenza Vaccination/Date Given: Yes Hx Pneumococcal Vaccination/Date Given: No Immunizations Up to Date: Yes Travel Risk - International Travel Have you traveled outside of the country in past 3 weeks: No - Coronavirus Screening Are you exhibiting any of the following symptoms?: No Close contact with a COVID-19 positive Pt in past 14-21 Days: No - Vaccine Status Have you recieved a Covid-19 vaccination: No - Review of Systems Constitutional: Weakness Eyes: No Symptoms Respiratory: No Symptoms Cardiac: No Symptoms Abdominal/Gastrointestinal: Appetite Changes, No Abdominal Pain, No Nausea, No Vomiting, No Diarrhea Genitourinary Symptoms: No Symptoms Musculoskeletal: Arthralgias, Myalgias Skin: No Symptoms Neurological: No Symptoms Psychological: No Symptoms Endocrine: No Symptoms Hematologic/Lymphatic: No Symptoms Immunological/Allergic: No Symptoms All Other Systems: Reviewed and Negative - Past Medical History Pertinent Past Medical History: Yes Neurological History: No Pertinent History ENT History: No Pertinent History Cardiac History: Congestive Heart Failure, Hypertension Respiratory History: No Pertinent History Endocrine Medical History: Diabetes Type II Musculoskeletal History: Osteoarthritis GI Medical History: Other History: Renal Disease Psycho-Social History: No Pertinent History Female Reproductive Disorders: No Pertinent History Other Medical History: CARDIAC STENT 01/02; Enlarged liver, open heart surgery 12/08/18. Recalled history. Patient is poor historian - Past Surgical History Past Surgical History: Yes Neuro Surgical History: No Pertinent History Cardiac: Angioplasty, CABG, Cardiac Catheterization, Cardiac Stent Respiratory: No Pertinent History Gastrointestinal: No Pertinent History Genitourinary: No Pertinent History Musculoskeletal: Other Female Surgical History: Hysterectomy Other Surgical History: cardiac stent x three December. CABG x 4 vessels in , wound care for bilateral legs within the last year. recalled history. Patient is a poor historian - Social History Smoking Status: Never smoker Exposure to second hand smoke: No Drug Use: none Patient Lives Alone: Yes - Nursing Vital Signs Nursing Vital Signs: Initial Vital Signs Temperature 97.9 F 10/13/21 14:42 Pulse Rate 90 10/13/21 14:42 Respiratory Rate 10/13/21 14:42 Blood Pressure 160/82 10/13/21 14:42 O2 Sat by Pulse Oximetry 95 10/13/21 14:42 Pain Scale Pain Intensity 5 - Physical Exam General Appearance: no apparent distress, alert, anxiety Eye Exam: PERRL/EOMI, eyes nml inspection Ears, Nose, Throat Exam: normal ENT inspection, moist mucous membranes Neck Exam: normal inspection, non-tender, supple, full range of motion Respiratory Exam: normal breath sounds, lungs clear, airway intact, No chest tenderness, No respiratory distress Cardiovascular Exam: regular rate/rhythm, normal heart sounds, normal peripheral pulses Gastrointestinal/Abdomen Exam: soft, normal bowel sounds, No tenderness Pelvic Exam: not done Rectal Exam: not done Back Exam: normal inspection, normal range of motion, No CVA tenderness, No vertebral tenderness Extremity Exam: normal inspection, normal range of motion, pelvis stable Neurologic Exam: alert, oriented x 3, cooperative, political consultant II-XII nml as tested, sensation nml Skin Exam: normal color, warm, dry Lymphatic Exam: No adenopathy SpO2 Interpretation: normal SpO2: 95 - Course Nursing assessment & vital signs reviewed: Yes EKG Interpreted by Me: RATE (84), Sinus Rhythm, Right Girard Deviation, prolonged QT interval, NORMAL QRS, NORMAL ST-T, Other (No acute ischemic changes on today's EKG. Comparison EKG 10/10/2021 shows no significant change) Ordered Tests: Active Orders 24 hr Category Date Time Status Cement Crusher Operator STAT Care 10/13/21 15:01 Active EKG-ER Only STAT Care 10/13/21 15:00 Active IV Insertion STAT Care 10/13/21 15:00 Active CBC W DIFF Stat Lab 10/13/21 15:25 Completed CMP Stat Lab 10/13/21 15:25 Completed CULTURE,URINE Stat Lab 10/13/21 15:50 Received Manual Differential NC Stat Lab 10/13/21 15:25 Completed NT PRO BNP Stat Lab 10/13/21 15:25 Completed TROPONIN Q3H Lab 10/13/21 15:25 Completed TROPONIN Q3H Lab 10/13/21 18:15 Ordered TROPONIN Q3H Lab 10/13/21 21:15 Ordered TROPONIN Q3H Lab 10/14/21 00:15 Ordered TROPONIN Q3H Lab 10/14/21 00:15 Ordered TROPONIN Q3H Lab 10/14/21 03:15 Ordered TROPONIN Q3H Lab 10/14/21 03:15 Ordered UA W/RFX UR CULTURE Stat Lab 10/13/21 15:50 Completed Medication Summary Generic Name Dose Route Start Last Admin Trade Name Freq PRN Reason Stop Dose Admin Sodium Chloride 1,000 mls @ 100 mls/hr 10/13/21 15:00 Sodium Chloride 0.9% 1000 Ml IV 11/12/21 14:59 .Q10H SMITHA Ceftriaxone Sodium/Dextrose 1 g in 50 mls @ 100 mls/hr 10/13/21 16:32 Rocephin 1 Gm-D5w 50 Ml Bag IV 10/13/21 17:01 STAT STA Lab/Rad Data: Laboratory Result Diagrams 10/13/21 15:25 10/13/21 15:25 Laboratory Results 10/13/21 10/13/21 10/13/21 Range/Units 15:50 15:25 15:25 WBC (4.0-10.5) K/mm3 RBC (4.1-5.4) M/mm3 Hgb (12.0-16.0) gm/dl Hct (35-47) % MCV (78-100) fl MCH (26-32) pg MCHC (32-36) g/dl RDW (11.5-14.0) % Plt Count (150-450) K/mm3 MPV (7.5-11.0) fl Sodium 135 L (137-145) mmol/L Potassium 3.3 L (3.5-5.1) mmol/L Chloride 94 L (98-107) mmol/L Carbon Dioxide 28 (22-30) mmol/L Anion Gap 15.7 H (5-15) MEQ/L BUN 43 H (7-17) mg/dL Creatinine 1.80 H (0.52-1.04) mg/dL Estimated GFR 28.4 ML/MIN Glucose 111 H (74-106) mg/dL Calcium 8.3 L (8.4-10.2) mg/dL Total Bilirubin 0.90 (0.2-1.3) mg/dL AST 59 H (14-36) U/L ALT 26 (0-35) U/L Alkaline Phosphatase 99 (38-126) U/L Troponin I 0.072 H* (0.000-0.034) ng/mL NT-Pro-B Natriuret Pep 75545 H (0-1800) pg/mL Serum Total Protein 6.1 L (6.3-8.2) g/dL Albumin 3.8 (3.5-5.0) g/dL Urine Color YELLOW (YELLOW) Urine Appearance CLOUDY (CLEAR) Urine pH 5.0 (5-6) Ur Specific [place] 1.010 (1.005-1.025) Urine Protein 100 (Negative) Urine Ketones NEGATIVE (NEGATIVE) Urine Blood SMALL (0-5) Jose/ul Urine Nitrite NEGATIVE (NEGATIVE) Urine Bilirubin NEGATIVE (NEGATIVE) Urine Urobilinogen NEGATIVE (0-1) mg/dL Ur Leukocyte Esterase LARGE (NEGATIVE) Urine WBC (Auto) >100 (0-5) /HPF Urine RBC (Auto) 51-100 (0-2) /HPF U Hyaline Cast (Auto) 3-5 (0-2) /LPF U Epithel Cells (Auto) FEW (FEW) /HPF Urine Bacteria (Auto) RARE (NEGATIVE) /HPF U Non-Squamous Epi Cells FEW (FEW) /HPF Urine Mucus (Auto) SLIGHT (NEGATIVE) /HPF Urine Culture Reflexed YES (NO) Urine Glucose NEGATIVE (NEGATIVE) mg/dL 10/13/21 Range/Units 15:25 WBC 4.0 (4.0-10.5) K/mm3 RBC 2.97 L (4.1-5.4) M/mm3 Hgb 9.5 L (12.0-16.0) gm/dl Hct 28.6 L (35-47) % MCV 96.3 (78-100) fl MCH 32.0 (26-32) pg MCHC 33.2 (32-36) g/dl RDW 17.4 H (11.5-14.0) % Plt Count 129 L (150-450) K/mm3 MPV 10.7 (7.5-11.0) fl Sodium (137-145) mmol/L Potassium (3.5-5.1) mmol/L Chloride (98-107) mmol/L Carbon Dioxide (22-30) mmol/L Anion Gap (5-15) MEQ/L BUN (7-17) mg/dL Creatinine (0.52-1.04) mg/dL Estimated GFR ML/MIN Glucose (74-106) mg/dL Calcium (8.4-10.2) mg/dL Total Bilirubin (0.2-1.3) mg/dL AST (14-36) U/L ALT (0-35) U/L Alkaline Phosphatase (38-126) U/L Troponin I (0.000-0.034) ng/mL NT-Pro-B Natriuret Pep (0-1800) pg/mL Serum Total Protein (6.3-8.2) g/dL Albumin (3.5-5.0) g/dL Urine Color (YELLOW) Urine Appearance (CLEAR) Urine pH (5-6) Ur Specific [place] (1.005-1.025) Urine Protein (Negative) Urine Ketones (NEGATIVE) Urine Blood (0-5) Jose/ul Urine Nitrite (NEGATIVE) Urine Bilirubin (NEGATIVE) Urine Urobilinogen (0-1) mg/dL Ur Leukocyte Esterase (NEGATIVE) Urine WBC (Auto) (0-5) /HPF Urine RBC (Auto) (0-2) /HPF U Hyaline Cast (Auto) (0-2) /LPF U Epithel Cells (Auto) (FEW) /HPF Urine Bacteria (Auto) (NEGATIVE) /HPF U Non-Squamous Epi Cells (FEW) /HPF Urine Mucus (Auto) (NEGATIVE) /HPF Urine Culture Reflexed (NO) Urine Glucose (NEGATIVE) mg/dL - Progress Progress: improved Progress Note: 10/13/21 16:37 Medical decision making: This patient has COVID-19 infection. In addition, she is diagnosed with urinary tract infection. I did discuss this patient with Dr. Lewis our [facility] hospitalist today. He is aware of this patient since he cared for her in the hospital relatively recently. I reviewed the patient's labs including the troponin, BNP kidney function potassium levels and discussed the social issues in terms of the patient living alone but family members are very close by. The plan for her is to allow her to be discharged to home after intravenous antibiotics, potassium supplement here and then supplement over the next couple days with a repeat potassium in 48 hours. Patient room air oxygenation is 99 to 100%. She has no chest pain. Patient has had chronically elevated troponins over the last several months. She has no chest pain. Counseled pt/family regarding: lab results, diagnosis, need for follow-up - Departure Departure Disposition: Home Clinical Impression: UTI (urinary tract infection), Chronic renal failure, Elevated troponin level not due myocardial infarction, Weakness, Hypokalemia Condition: Stable Critical Care Time: No Referrals: ALYSSA BARGER MD [Primary Care Provider] - Follow up/PCP as directed Additional Instructions: Take medication as prescribed. Follow-up with Dr. Barger's office on Friday, October 15, 2021 by phone to make arrange for follow-up appointment. Return to the [facility] laboratory to have your potassium rechecked on Friday, October 15, 2021. Drink plenty fluids and advance your diet as tolerated
[2021-10-13 15:30] LABS: Hematocrit 28.6 % (35-47); Hemoglobin 9.5 gm/dl (12.0-16.0); Mean Cell Volume 96.3 fl (78-100); Mean Corpuscular Hgb Concent. 33.2 g/dl (32-36); Mean Platelet Volume 10.7 fl (7.5-11.0); Platelet Count 129 K/mm3 (150-450); Red Blood Count 2.97 M/mm3 (4.1-5.4); Red Cell Distribution Width 17.4 % (11.5-14.0)
[2021-10-13 15:50] LABS: ALBUMIN 3.8 g/dL (3.5-5.0); ANION GAP 15.7 MEQ/L (5-15); BILIRUBIN,TOTAL 0.9 mg/dL (0.2-1.3); Calcium 8.3 mg/dL (8.4-10.2); Creatinine 1 1.8 mg/dL (0.52-1.04); EST GLOMERULAR FILTRATION RATE 28.4 ML/MIN; Potassium 3.3 mmol/L (3.5-5.1); Total Protein 6.1 g/dL (6.3-8.2)
[2021-10-13 16:28] LABS: Appearance CLOUDY (CLEAR); Bacteria RARE /HPF (NEGATIVE); Bilirubin NEGATIVE (NEGATIVE); Blood SMALL Ery/ul (0-5); Epithelial Cells FEW /HPF (FEW); Glucose NEGATIVE (NEGATIVE); Ketones NEGATIVE (NEGATIVE); Leukocyte Esterase LARGE (NEGATIVE); Mucus SLIGHT /HPF (NEGATIVE); Nitrite NEGATIVE (NEGATIVE); Non-Squamous Epithelial Cells FEW /HPF (FEW); Protein,Urine Dip 100 (Negative); RBC 51-100 /HPF (0-2); Urobilinogen NEGATIVE mg/dL (0-1); WBC >100 /HPF (0-5)
[2021-10-13] MEDS ORDERED: ROCEPHIN 1 Gm-D5w 50 ml Bag** 1 G/50 ML IVPB IV STA (16:32)
[2021-10-13] MEDS ORDERED: Rocephin 1000 MG INJ IM ONE (16:48)
[2021-10-13] MEDS ORDERED: Klor Con 10 MEQ PO ONE ×2 (16:49→17:07)
[2021-10-13] MEDS ORDERED: Lasix 40 MG PO ONE (16:49)
[2021-10-13] MEDS ORDERED: Rocephin 1000 MG INJ ONE (17:07)
[2021-10-13] MEDS ORDERED: XYLOCAINE 1% HCL 20 ML MDV ONE (17:07)
[2021-10-13 17:23] VITALS: BP 135/63; PULSE 86; O2SAT 98
[2021-10-13] MEDS ORDERED: ZOFRAN ODT 4 MG ONE (17:26)
[2021-10-13] MEDS ORDERED: ZOFRAN ODT 4 MG PO ONE (17:29)
[2021-10-13 17:44] LABS: BAND 15 % (0.0-2.0); Eosinophil 1 % (0.00-3.0); Lymphocytes 6 % (24-44); Metamyelocyte 2 %; Monocyte 4 % (0.0-12.0); Neutrophils 72 % (36.0-66.0); Total Cells Counted 100
[2021-10-13 17:45] LABS: Ovalocytes 2+; Platelet Estimate NORMAL (NORMAL); Poikilocytosis 2+
== END 2021-10-13 17:52 | disposition home or self-care (01) ==
LOC: ED 14:38
DX: N39.0 Urinary tract infection, site not specified (principal); R77.8 Other specified abnormalities of plasma proteins; R53.1 Weakness; E87.6 Hypokalemia; I13.0 Hypertensive heart and chronic kidney disease with heart failure and stage 1 through stage 4 chronic kidney disease, or unspecified chronic kidney disease; E11.22 Type 2 diabetes mellitus with diabetic chronic kidney disease; N18.9 Chronic kidney disease, unspecified; I50.9 Heart failure, unspecified; Z79.84 Long term (current) use of oral hypoglycemic drugs; U07.1 COVID-19; Z79.899 Other long term (current) drug therapy
CPT/HCPCS: 36415; 80053; 81001; 83880; 84484; 85025; 87077; 87086; 87186; 93005; 93041; 96372; 99284; J0696; Q0162; A9270-GY